=== PATIENT | male | born 1955 | race African-American/Black ===

== ENCOUNTER 2019-03-29 22:21 | Inpatient (IN) | payer MEDICARE ==
[~2019-03-29] VITALS: Ht 172.7 cm; Wt 102.5 kg
[2019-03-29 22:30] VITALS: BP 123/73
--- NOTE | 2019-03-29 22:30 | NUR ---
ED Nurse Note: pt brought in by ambulance 67 from home. per report, pt stated pt was altered and not acting like himself. pt is alert x3 at this time.
--- NOTE | 2019-03-29 22:39 | Emergency Room Report ---
History of Present Illness General Chief Complaint: Altered Level of Consciousness Source: Patient Present Illness [facility] Disclaimer: Please note that this report is being documented using DRAGON technology. This can lead to erroneous entry secondary to incorrect interpretation by the dictating instrument. HPI: 63-year-old male with a history of hypertension, hyperlipidemia, diabetes and hepatitis presents for evaluation of altered mental status. According to EMS, patient lives at home with his who called EMS when he was progressively more altered throughout the day. States normally he is ambulatory , conversant and alert and oriented x3. Notes increasing confusion forgetting to do things during the day and forgetting his name, disoriented to time and behaving bizarrely. No reported trauma. No reported drug or alcohol use. According to EMS the says that this is happened before when the patient had a "blood infection" several years ago. Fingerstick on route was in the 150s. PMH: Hypertension, diabetes, hyperlipidemia, hepatitis PSH: Unknown Allergies: Penicillins listed in chart Social Hx: No reported drug or alcohol use Allergies: Coded Allergies: PENICILLINS (Verified Allergy, Unknown, 03/29/19) Nursing Documentation-PMH Hx Hypertension: Yes Hx Diabetes: Yes Review of Systems All Other Systems: negative except mentioned in HPI Physical Exam Vital Signs Date Time Temp Pulse Resp B/P (MAP) Pulse Ox O2 Delivery O2 Flow Rate FiO2 03/29/19 22:25 98.4 86 14 143/80 (101) 95 Room Air General: Awake and alert, no acute distress, afebrile HEENT: NC/AT. EOMI. PERRLA. Visual raines are full. No nystagmus. Facial expressions are symmetrical. No facial droop. Cardiovascular: RRR. S1 and S2 normal. No murmur appreciated Resp: Normal work of breathing. No cough, wheezing or crackles appreciated Abdomen: Abdomen is soft, nondistended. Nontender Skin: Intact. No abrasions, laceration or rash over the exposed skin MSK: Normal tone and bulk. Moving all extremities. No obvious deformity. There is no drift in the upper or lower extremities bilaterally. Neuro: Awake and alert. Awake and oriented x3. Facial expression symmetrical. Mild dysarthria. Sensation to light touch is intact over the upper and lower extremities. The patient has intact speech with good repetition, comprehension. Responses are slow but coherent. No aphasia, no neglect. Medical Decision Making Diagnostic Impression: Primary Impression: Altered level of consciousness Additional Impressions: Febrile illness MORAIMA (acute kidney injury) Increased ammonia level Hyponatremia ER Course Is a 63-year-old male presenting for evaluation of altered mental status. For my evaluation he is alert and oriented x3 though somewhat sluggish to respond. Vital signs are within normal limits and the patient is afebrile. According to EMS he had a similar presentation where he had a "blood infection" at [facility] last month. We will start a broad metabolic and infectious work-up including a CT scan of the head and a chest x-ray. Patient will likely require admission Laboratory Tests Test 03/29/19 11:05 03/29/19 22:24 03/29/19 22:42 03/29/19 22:44 Arterial Blood pH 7.422 (7.350-7.450) Arterial Blood Partial Pressure CO2 28.8 mmHg (35.0-45.0) L Arterial Blood Partial Pressure O2 79.4 mmHg (75.0-100.0) Arterial Blood HCO3 18.3 mmol/L (22.0-26.0) L Arterial Blood Oxygen Saturation 95.2 % (95-100) Arterial Blood Base Excess -4.8 (-2-2) L [place] Test Positive Urine Opiates Screen Negative (NEGATIVE) Urine Barbiturates Screen Negative (NEGATIVE) Phencyclidine (PCP) Screen Negative (NEGATIVE) Urine Amphetamines Screen Negative (NEGATIVE) Urine Benzodiazepines Screen Negative (NEGATIVE) Urine Cocaine Screen Negative (NEGATIVE) Urine Marijuana (THC) Screen Negative (NEGATIVE) White Blood Count 6.4 K/UL (4.8-10.8) Red Blood Count 4.13 M/UL (4.70-6.10) L Hemoglobin 12.4 G/DL (14.2-18.0) L Hematocrit 36.2 % (42.0-52.0) L Mean Corpuscular Volume 88 FL (80-99) Mean Corpuscular Hemoglobin 30.0 PG (27.0-31.0) Mean Corpuscular Hemoglobin Concent 34.2 G/DL (32.0-36.0) Red Cell Distribution Width 11.2 % (11.6-14.8) L Platelet Count 83 K/UL (150-450) L Mean Platelet Volume 8.5 FL (6.5-10.1) Neutrophils (%) (Auto) % (45.0-75.0) Lymphocytes (%) (Auto) % (20.0-45.0) Monocytes (%) (Auto) % (1.0-10.0) Eosinophils (%) (Auto) % (0.0-3.0) Basophils (%) (Auto) % (0.0-2.0) Differential Total Cells Counted 100 Neutrophils % (Manual) 82 % (45-75) H Lymphocytes % (Manual) 12 % (20-45) L Monocytes % (Manual) 5 % (1-10) Eosinophils % (Manual) 0 % (0-3) Basophils % (Manual) 1 % (0-2) Band Neutrophils 0 % (0-8) Platelet Estimate Decreased L Platelet Morphology Normal Red Blood Cell Morphology Normal Sodium Level 132 MMOL/L (136-145) L Potassium Level 4.4 MMOL/L (3.5-5.1) Chloride Level 100 MMOL/L (98-107) Carbon Dioxide Level 19 MMOL/L (21-32) L Anion Gap 13 mmol/L (5-15) Blood Urea Nitrogen 54 mg/dL (7-18) H Creatinine 1.9 MG/DL (0.55-1.30) H Estimate Glomerular Filtration Rate 43.5 mL/min (>60) Glucose Level 222 MG/DL (74-106) H Lactic Acid Level 1.40 mmol/L (0.4-2.0) Calcium Level 9.2 MG/DL (8.5-10.1) Total Bilirubin 2.8 MG/DL (0.2-1.0) H Direct Bilirubin 1.8 MG/DL (0.0-0.3) H Aspartate Amino Transferase (AST) 87 U/L (15-37) H Alanine Aminotransferase (ALT) 69 U/L (12-78) Alkaline Phosphatase 198 U/L (46-116) H Total Creatine Kinase 65 U/L (26-308) Creatine Kinase MB < 0.5 NG/ML (0.0-3.6) Creatine Kinase MB Relative Index 0.7 Troponin I 0.000 ng/mL (0.000-0.056) Total Protein 8.3 G/DL (6.4-8.2) H Albumin 2.5 G/DL (3.4-5.0) L Globulin 5.8 g/dL Albumin/Globulin Ratio 0.4 (1.0-2.7) L Thyroid Stimulating Hormone (TSH) 0.790 uiU/mL (0.358-3.740) Salicylates Level < 0.2 ug/mL (2.8-20) L Acetaminophen Level < 2 MCG/ML (10-30) L Serum Alcohol < 3 mg/dL Acetone Level Negative (NEGATIVE) Urine Color Yellow Urine Appearance Clear Urine pH 5 (4.5-8.0) Urine Specific [place] 1.010 (1.005-1.035) Urine Protein 2+ (NEGATIVE) H Urine Glucose (UA) Negative (NEGATIVE) Urine Ketones Negative (NEGATIVE) Urine Blood 3+ (NEGATIVE) H Urine Nitrite Negative (NEGATIVE) Urine Bilirubin Negative (NEGATIVE) Urine Urobilinogen 4 MG/DL (0.0-1.0) H Urine Leukocyte Esterase Negative (NEGATIVE) Urine RBC 2-4 /HPF (0 - 0) H Urine WBC 0 /HPF (0 - 0) Urine Squamous Epithelial Cells None /LPF (NONE/OCC) Urine Bacteria Few /HPF (NONE) Test 03/29/19 23:00 Ammonia 68 umol/L (11-32) H EKG Diagnostic Results EKG Time: 22:37 Rate: normal Rhythm: NSR ST Segments: no acute changes Other Impression Sinus rhythm, normal axis, normal intervals, no ST segment changes. Rhythm Strip Diag. Results Rhythm Strip Time: 22:37 EP Interpretation: yes Rate: 90s Rhythm: NSR, no PVC's, no ectopy Chest X-Ray Diagnostic Results Chest X-Ray Diagnostic Results : Chest X-Ray Ordered: Yes # of Views/Limited/Complete: 1 View Indication: Other - Altered mental status EP Interpretation: Yes Interpretation: no consolidation, no effusion, no pneumothorax, no acute cardiopulmonary disease Impression: No acute disease Electronically Signed by: Electronically signed by Dr. Mark Treviño CT/MRI/US Diagnostic Results CT/MRI/US Diagnostic Results : Impression Preliminary Findings Only See Final Report For Complete Findings CT HEAD Without Contrast: No acute intracranial hemorrhage, extra-axial fluid collection, edema, mass effect, or ischemic infarct. No fracture. The paranasal sinuses and mastoid air cells are clear. Radiologist: Blaze Ibanez MD Reevaluation Time: 01:13 Last Vital Signs Date Time Temp Pulse Resp B/P (MAP) Pulse Ox O2 Delivery O2 Flow Rate FiO2 03/29/19 22:25 98.4 86 14 143/80 (101) 95 Room Air Status: improved Reevaluation Impression CT scan of the head, x-ray of the chest and EKG are within normal limits. Labs show no significant white count but it signs of acute kidney injury with an elevated creatinine, elevated pneumonia, normal lactate. The patient's is now present and states that he also takes methadone, hydrocodone and this may be a polypharmacy issue however the drug screen does not show any opiates on board. The patient arrived afebrile but is now again febrile. states that he had a temperature of 103 degrees taken orally at home at the time of his changes in mentation. She states that he was oriented the entire time but just slow to respond and somewhat lethargic. She states that he was able to answer all questions appropriately for EMS. adds that he was being treated for liver cancer with his last episode of chemotherapy 1 year ago. He is also treated for hepatitis C. it appears he has an acute kidney injury with an elevated creatinine elevated ammonia as well. Will order lactulose. According to discharge labs that are provided by the patient's his creatinine on discharge on 03/06 was 1.14. We will continue IV fluids and the patient will be admitted for further management of febrile illness, MORAIMA and elevated ammonia levels. His mentation is restored to baseline as he has been since arrival and he understands and agrees with this treatment plan. Disposition: ADMITTED INPATIENT Condition: Serious Mark Treviño MD Mar 29, 2019 22:39
--- NOTE | 2019-03-29 22:48 | NUR ---
pt left for CT
[2019-03-29 23:02] LABS: HEMATOCRIT 36.2 % (42.0-52.0); HEMOGLOBIN 12.4 G/DL (14.2-18.0); MEAN CORPUSCULAR VOLUME 88 FL (80-99); PLATELET COUNT 83 K/UL (150-450); RED BLOOD COUNT 4.13 M/UL (4.70-6.10); RED CELL DISTRIBUTION WIDTH 11.2 % (11.6-14.8); WHITE BLOOD COUNT 6.4 K/UL (4.8-10.8)
--- NOTE | 2019-03-29 23:12 | Diagnostic Imaging Report ---
Indications: Altered mental status Technique: Spiral acquisitions obtained through the brain. Angled axial and coronal 5 x 5 mm slices were reconstructed. Total dose length product 1323 mGycm. CTDI vol(s) 60 mGy. Dose reduction achieved using automated exposure control Comparison: None. Findings: No acute intracranial hemorrhage or edema. No mass effect or midline shift. Normal abbott-white differentiation. There is minimal age-related prominence of the ventricles and extra axial CSF spaces. The calvarium is intact. The mastoids are clear. Visualized sinuses are clear. The orbits are unremarkable Impression: Negative This agrees with the preliminary interpretation provided overnight by [facility] teleradiology service. The CT scanner at [facility] is accredited by the [employer] and the scans are performed using protocols designed to limit radiation exposure to as low as reasonably achievable to attain images of sufficient resolution adequate for diagnostic evaluation.
[2019-03-29] MEDS ORDERED: LOSARTAN POTAS100 MG ORAL (23:13)
[2019-03-29] MEDS ORDERED: PROPRANOLOL HCL40 MG ORAL (23:13)
[2019-03-29] MEDS ORDERED: LORATADINE10 M1 PO (23:13)
[2019-03-29] MEDS ORDERED: GABAPENTIN300 MG ORAL (23:13)
[2019-03-29] MEDS ORDERED: OMEPRAZOLE20 M2 ORAL (23:13)
[2019-03-29] MEDS ORDERED: METHADONE H5 MG/5 M1 PO (23:13)
[2019-03-29] MEDS ORDERED: LANTUS SOL100 UNIT/1 SUBQ (23:13)
[2019-03-29] MEDS ORDERED: ROXICODONE5 MG ORAL (23:13)
[2019-03-29] MEDS ORDERED: HYDROCHLOROTHIA25 MG ORAL (23:13)
[2019-03-29] MEDS ORDERED: NOVOLOG100 UNIT/4 SQ (23:13)
[2019-03-29] MEDS ORDERED: PROSCAR5 MG ORAL (23:13)
[2019-03-29 23:30] LABS: ANION GAP 13 mmol/L (5-15); BLOOD UREA NITROGEN 54 mg/dL (7-18); CALCIUM 9.2 MG/DL (8.5-10.1); CARBON DIOXIDE 19 MMOL/L (21-32); CHLORIDE 100 MMOL/L (98-107); CREATININE 1.9 MG/DL (0.55-1.30); POTASSIUM 4.4 MMOL/L (3.5-5.1); SODIUM 132 MMOL/L (136-145)
[2019-03-29 23:40] LABS: ALANINE AMINOTRANSFERASE 69 U/L (12-78); ALBUMIN 2.5 G/DL (3.4-5.0); ALBUMIN/GLOBULIN RATIO 0.4 (1.0-2.7); ALKALINE PHOSPHATASE 198 U/L (46-116); ASPARTATE AMINO TRANSFERASE 87 U/L (15-37); BILIRUBIN,TOTAL 2.8 MG/DL (0.2-1.0); CKMB < 0.5 NG/ML (0.0-3.6); CREATINE KINASE 65 U/L (26-308)
[2019-03-29 23:43] LABS: BILIRUBIN,DIRECT 1.8 MG/DL (0.0-0.3)
--- NOTE | 2019-03-29 23:46 | NUR ---
ED Nurse Note: pt unable to provide urine sample at this time. pt stated he will notify staff when he is ready to urinate. ERMD aware.
--- NOTE | 2019-03-30 00:26 | NUR ---
ED Nurse Note: urine sample sent down to lab
[2019-03-30 00:31] LABS: APPEARANCE,URINE CLEAR; BILIRUBIN, URINE NEGATIVE (NEGATIVE); GLUCOSE, URINE (UA) NEGATIVE (NEGATIVE); KETONES,URINE NEGATIVE (NEGATIVE); LEUKOCYTE ESTERASE ,URINE NEGATIVE (NEGATIVE); NITRITE,URINE NEGATIVE (NEGATIVE); PH,URINE 5 (4.5-8.0); PROTEIN,URINE 2+ (NEGATIVE); UROBILINOGEN,URINE 4 MG/DL (0.0-1.0)
[2019-03-30 00:40] LABS: COLOR,URINE YELLOW
[2019-03-30 00:50] VITALS: BP 108/70
--- NOTE | 2019-03-30 00:52 | NUR ---
ED Nurse Note: pt in bed resting awake, by bedside. VSS
[2019-03-30] MEDS ORDERED: Acetaminophen 500mg (ES) tab ORAL ONE ×2 (01:15→01:16)
--- NOTE | 2019-03-30 02:41 | NUR ---
ED Nurse Note: pt brought up to MS floor accompanied by rv technician via gurchasity in stable condition. IV site to left FA 20g remain intact. Belonging list signed. pt is alert x4. Report given to FIDEL Banks .
[2019-03-30] MEDS ORDERED: Lactulose 20gm/30ml UDC ORAL ONE (02:45)
--- NOTE | 2019-03-30 03:17 | NUR ---
NURSE NOTES: Admitted 53 year old male Pt from ER under Dr Chavarria. Report received from [facility] ER. pt is alert,oriented and verbal. pt is ambulatory. Breathing on room air. Patient's at bed side. No acute distress noted. IV site on left arm is patent. Head ct was done in the ER. skin intact. Belonging list verified and signed by PT's . Pt's took his shirt to home(it is in the belonging list)Vitals stable. Temperature is 98.7. Dr Chavarria will be called for admitting orders. Pt oriented to the room.Bed in low and locked position. Call light within reach. Pt will be monitored.
[2019-03-30] MEDS ORDERED: Lactulose 20gm/30ml UDC ONE (03:27)
[2019-03-30 03:48] VITALS: BP 126/74
[2019-03-30] MEDS ORDERED: oxyCODONE 5mg IR tab ORAL PRN (06:30)
--- NOTE | 2019-03-30 07:10 | NUR ---
HAND-OFF: Report given to Buckner RN.
--- NOTE | 2019-03-30 07:15 | NUR ---
NURSE NOTES: Received patient awake, alert. IV line intact, no s/s of infiltration. No SOB or cardiac distress. Will continue plan of care.
[2019-03-30] MEDS: NovoLOG Insulin Flexpen SUBQ SCH ×4 (07:28→22:00)
[2019-03-30 08:00] VITALS: BP 93/57
[2019-03-30] MEDS ORDERED: Vancomycin 1.5gm/NS Premix IVPB ONE (08:00)
[2019-03-30] MEDS ORDERED: Heparin 5000 units/ml inj SUBQ SCH (09:00)
[2019-03-30] MEDS ORDERED: Losartan 50mg tab ORAL SCH (09:00)
[2019-03-30] MEDS: Propranolol 40mg tab ORAL SCH ×3 (09:00→21:58)
[2019-03-30] MEDS: Flagyl 500mg/NS 100ml Pre-Mix IV SCH ×2 (09:01→17:43)
--- NOTE | 2019-03-30 11:17 | NUR ---
NURSE NOTES: Unable to insert a second IV line on right wrist to start Vancomycin. Two attempts made. Referred to charge nurse.
[2019-03-30 12:00] VITALS: BP 120/71
[2019-03-30] MEDS ORDERED: Piperacillin/Tazobactam 3.375 GM in NS 110 ML IVPB SCH (12:00)
--- NOTE | 2019-03-30 12:00 | NUR ---
NURSE NOTES: IV line reinserted by charge nurse to right hand, infusing well.
[2019-03-30] MEDS: Aztreonam 1gm/D5W 55ml IVPB SCH ×6 (12:56→21:59)
--- NOTE | 2019-03-30 13:09 | NUR ---
CASE MANAGEMENT: INITIAL REVIEW 63 YR OLD FEMALE BIBA FROM HOME CC: ALTERED LEVEL OF CONSCIOUSNESS SI: ALTERED LEVEL CONSCIOUS; INCREASE AMMONIA; HYPONATREMIA; ACUTE KIDNEY INJURY/ FEVER 98.5 86 14 143/80 95% RA NA 132; NH3 68; RBC 4.13; H/H 12.4/36.2; PLT 83; CO2 19; BUN 54; CREAT 1.9; BG 222 TBIL 2.8; DBIL 1.8; ALK PHOS 198; AST 87 ABG: PCO2 28.8; HCO3 18.3 IS: IVF NS BOLUS X2 TYLENOL PO X1 CT HEAD : 4E MED/SURG DCP: RETURN HOME WHEN MEDICALLY CLEARED PLAN: US ABD CASE MANAGEMENT: REVIEW 03/30/19 SI: ALTERED LEVEL CONSCIOUS; INCREASE AMMONIA; HYPONATREMIA; ACUTE KIDNEY INJURY/ FEVER 98.5 86 14 143/80 95% RA NA 132; NH3 68; RBC 4.13; H/H 12.4/36.2; PLT 83; CO2 19; BUN 54; CREAT 1.9; BG 222 TBIL 2.8; DBIL 1.8; ALK PHOS 198; AST 87 ABG: PCO2 28.8; HCO3 18.3 IS: IV VANCOMYCIN X1 IV KCL @150ML/HR LACTULOSE PO TID PROTONIX PO QD PROSCAR PO QD NEURONTIN PO Q8HR COZAAR PO QD INDERAL PO Q8HR IV METRONIDAZOLE @100ML/HR NOVOLOG SQ AC&HS TYLENOL PO Q4/PRN : 4E MED/SURG DCP: RETURN HOME WHEN MEDICALLY CLEARED PLAN: US ABD
[2019-03-30] MEDS: NS w/KCl 20mEq 1000ml 1,000 ML IV SCH ×2 (13:46→21:58)
[2019-03-30] MEDS: Lactulose 20gm/30ml UDC ORAL SCH ×2 (13:46→17:09)
--- NOTE | 2019-03-30 14:52 | Diagnostic Imaging Report ---
Indication: Chest pain Technique: One view of the chest Comparison: none Findings: Lungs and pleural spaces are clear. Heart size is normal. Impression: No acute process
--- NOTE | 2019-03-30 15:51 | Diagnostic Imaging Report ---
Indication: Abdominal distention, suspected ascites, anticipated paracentesis Technique: Grayscale images of the peritoneal space in all 4 quadrants Comparison: none Findings: No free intraperitoneal fluid is demonstrated Impression: Negative
[2019-03-30 16:00] VITALS: BP 126/79
--- NOTE | 2019-03-30 16:00 | NUR ---
NURSE NOTES: IV line on right hand dislodged. Reinserted to same hand using g24, patent.
--- NOTE | 2019-03-30 16:31 | Consultation ---
DATE OF CONSULTATION: 03/30/2019 CONSULTING PHYSICIAN: Bruno Bray M.D. REFERRING PHYSICIAN: Amarjit Chavarria M.D. CHIEF COMPLAINT AND REASON FOR CONSULTATION: Elevated BUN and creatinine, sepsis. HISTORY OF PRESENT ILLNESS: The patient is a 63-year-old male with a history of hepatitis C treated in the past, liver cancer treated with TACE procedure, hypertension, diabetes. He was hospitalized at [facility] in [place] recently with sepsis of unknown etiology and apparently was discharged approximately 03/06/2019. The patient had lethargy, altered mental status, confusion and was brought to the emergency room last night, was also associated with fever. No dysuria, hematuria, or increasing cough. ALLERGIES: Penicillin as a child. MEDICATIONS: Amlodipine 10 mg daily, finasteride 5 mg daily, gabapentin 600 mg t.i.d., hydrochlorothiazide 25 mg daily, losartan 50 mg b.i.d., methadone 10 mg daily, tamsulosin 0.4 mg daily. HABITS: He is a former smoker. Alcohol drinker. He is on methadone for arthritis. Does not have a history of heroin abuse. SURGERIES: Right knee osteochondroma, gallbladder, left ankle surgery. SYSTEM REVIEW: HEAD, EYES, EARS, NOSE, AND THROAT: Vision and hearing is good. ENDOCRINE: History of diabetes for several years. No recent hypoglycemia or hyperglycemia. No thyroid disease. PULMONARY: No chronic cough or asthma. CARDIAC: No angina or NC. History of hypertension. GASTROINTESTINAL: No GI bleeding or ulcers. GENITOURINARY: No dysuria, hematuria, or kidney stones. He is not aware of renal failure, but apparently had MORAIMA on his prior hospitalization. NEUROLOGIC: He has had hepatic encephalopathy several years ago. He took lactulose, but this resolved. No strokes or seizures. MUSCULOSKELETAL: History of severe arthritis of the knees [id number] for which he takes methadone. PHYSICAL EXAMINATION: GENERAL: The patient is arousable, somewhat slow to speak, in no acute distress. VITAL SIGNS: Temperature 101.7, pulse 99, respirations 20, blood pressure 93/57. HEAD, EYES, EARS, NOSE, AND THROAT: Sclerae are nonicteric. Ocular motions intact in all directions. Oral mucosa slightly dry. NECK: No adenopathy or thyroid enlargement. LUNGS: Clear. HEART: Regular rhythm. I hear no murmur. ABDOMEN: Shows some fullness. I am unable to clearly feel liver or spleen. EXTREMITIES: No edema, cyanosis, or clubbing. No inflamed joints or cellulitis. NEUROLOGIC: He is alert, responsive, somewhat slower speech. Ocular motions intact in all directions. Smile symmetric. Tongue is midline. He moves all extremities. He has very slight asterixis. PERTINENT LABORATORY DATA: Show sodium 132, potassium 4.4, BUN 54, creatinine 1.9, glucose 222. Lactic acid 1.4. Bilirubin 2.8, alkaline phosphatase 198, AST 87. CK 65. Albumin 2.5. Toxicology, urine drug screen is negative. IMPRESSION: 1. Acute kidney injury. Note recent labs from 03/06/2019 had a BUN of 18 and a creatinine of 1.14. Acute kidney injury could be due to sepsis, dehydration from diuretics, possible hepatorenal syndrome although I think this is less likely. 2. Sepsis, etiology unclear in a patient with liver disease. Also get concerned about spontaneous bacterial peritonitis versus other causes. Urine shows 0 white cells, so it is unlikely to be a UTI. 3. Proteinuria 2+. This should be repeated, but it clearly indicates he has some diabetic nephropathy or other etiology. 4. History of liver cancer. 5. History of hep C in the past and concern for cirrhosis. PLAN: The patient has been cultured. Put on broad-spectrum antibiotics. We will get appropriate imaging. Hydrate the patient. Give him lactulose. Check ammonia and make further recommendations when the above studies are repeated and available. Bruno Bray M.D. DR: LESIA JOB#: [id number] CC:
--- NOTE | 2019-03-30 17:03 | Diagnostic Imaging Report ---
Indication: Abdominal distention, abnormal liver function tests, abnormal renal function tests Technique: Garcia-scale and duplex images of the upper abdomen were obtained Comparison: none Findings: Gallbladder has been removed Common bile duct measures 6 mm in diameter. No intrahepatic biliary ductal dilatation. Liver demonstrates normal echogenicity, no focal abnormality. There is equivocally mild hepatic surface nodularity. Portal vein and hepatic veins are patent. Pancreas is unremarkable. The spleen is enlarged, measuring 16.8 cm long axis dimension Left kidney measures 11.3 cm in length. Right kidney measures 11.3 cm length. Both kidneys demonstrate normal echogenicity. There is no hydronephrosis. No focal abnormality . Abdominal aorta is partially obscured by bowel gas, visualized portions are non-aneurysmal . Impression: Status post cholecystectomy Negative for dilated bile ducts Splenomegaly Possible hepatic surface nodularity, could indicate cirrhotic change Note incomplete visualization of the abdominal aorta
--- NOTE | 2019-03-30 19:15 | NUR ---
NURSE NOTES: Patient is in bed awake, alert and verbal. Breathing on room air. IV sites on L arm is patent and intact. Bed in low and locked position. Call light within reach.Pt will be monitored.
[2019-03-30 20:00] VITALS: BP 131/78
--- NOTE | 2019-03-30 21:14 | NUR ---
NURSE NOTES: Patient is in bed awake, alert and verbal. Breathing on room air.Pt is having frequent BMs; on lactulose. Blood sugar 270.Pt is on IV fluid. Abdomen is slightly distended. Abdominal Us done during last shift, paracentesis was cancelled. Bed in low and locked position. Call light within reach.Pt was instructed to call for assistance before getting out of bed. Pt will be monitored. Trainee, Raisa SomersRN will be assisting in the care of this patient.
--- NOTE | 2019-03-30 22:00 | NUR ---
NURSE NOTES: Called Dr Chavarria for methadone order per pt's request but no new orders.
--- NOTE | 2019-03-30 23:30 | History and Physical Report ---
DATE OF ADMISSION: 03/30/2019 REASON FOR ADMISSION: Elevated renal function. HISTORY: This is a 63-year-old male with history of hypertension and diabetes. The patient was recently admitted to [facility] for possible sepsis and was discharged. The patient's care was discussed and reviewed. The patient is currently without significant distress and alert and has no focal concerns. Renal was called to evaluate further for possible acute kidney injury, and the patient is also being admitted for possible sepsis and started on antibiotics. PAST MEDICAL HISTORY: As above. Also, he has a history of right knee osteochondroma, possible cholecystectomy, and left ankle surgery. MEDICATIONS: Reviewed and reconciled. SOCIAL HISTORY: The patient is a former smoker. Former drinker. He does have a history of methadone use and history of heroin abuse. PHYSICAL EXAMINATION: GENERAL: A well-developed male, overall comfortable. VITAL SIGNS: Reviewed. T-max 101.7 and blood pressure 93/57. HEENT: Negative. NECK: Supple. LUNGS: Fairly clear and symmetric. CARDIAC: S1, S2. Regular rate and rhythm. ABDOMEN: Overall soft and nontender. EXTREMITIES: No cyanosis, clubbing, or edema. NEUROLOGIC: Grossly nonfocal. LABORATORY DATA: All reviewed. IMPRESSION: 1. Acute kidney injury, acute renal failure. 2. Possible sepsis. 3. Hyperglycemia. 4. Diabetes. 5. Hypertension. 6. Hyperbilirubinemia. 7. Elevated liver enzymes. 8. Proteinuria. 9. History of hepatitis C. RECOMMENDATIONS: 1. Supportive care. 2. IV antibiotics. 3. Follow cultures. 4. IV hydration. 5. Monitor care and discuss for further changes. 6. Follow up laboratory data and review, and we will discuss with other consultants as to further care and management. at present, appears nontoxic but will cover empirically and monitor Amarjit Chavarria M.D. DR: JEFF JOB#: [id number] CC: JOSE LUIS
[2019-03-31] VITALS (28 sets, daily range): BP systolic 56–210; BP diastolic 41–124
[2019-03-31] MEDS: Flagyl 500mg/NS 100ml Pre-Mix IV SCH (00:49)
--- NOTE | 2019-03-31 01:14 | NUR ---
NURSE NOTES: Pt is in bed asleep. Evening meds given as ordered. Assisted as needed. Blood sugar checked and insulin administered as ordered. avitals are stable. Temperature 97.8. Bed in low and locked position. call light within reach. will continue to monitor the pt.
[2019-03-31] MEDS: NS w/KCl 20mEq 1000ml 1,000 ML IV SCH (02:20)
--- NOTE | 2019-03-31 03:10 | NUR ---
NURSE NOTES: Pt is standing by the bedside with severe shortness of breath, breathing rapidly and wheezing. Pt just returned from using the restroom. Vitals taken. Temp fluctuating from 101.5 to 102.6 axillary, HR 108 -118, BP 132/71, RR 22-26, O2 sat (86-94). Pt is assessed and placed on oxygen via nasal canula. RN remains with patient to monitor closely . Pt is placed continuos pulse oximetry. Vitals are taken in close intervals.
--- NOTE | 2019-03-31 03:45 | NUR ---
NURSE NOTES: Dr. Chavarria is called and message left regarding pt's condition. Awaiting call back.
--- NOTE | 2019-03-31 04:07 | NUR ---
NURSE NOTES: Pt is still restless, and wheezing. HR 118, Temp 101.5. Tylenol 650mg po given as ordered PRN for fever. Cooling measure provided. Blood sugar 145. Pt will continue to be monitored.
--- NOTE | 2019-03-31 04:10 | NUR ---
NURSE NOTES: Respiratory therapist called to asses patient. Sridhar PT is by bedside assessing patient.
--- NOTE | 2019-03-31 04:15 | NUR ---
NURSE NOTES: Dr. Chavarria is called again and message left to call back. Awaiting call back.
--- NOTE | 2019-03-31 04:30 | NUR ---
NURSE NOTES: Charge nurse FIDEL Nix and Nurse supervisor cell room Pat Zarate called to inform about patient's condition.
--- NOTE | 2019-03-31 04:34 | NUR ---
NURSE NOTES: Rapid Response Team (STONEWORK TRACER) is called as the pt's condition is not improving. Pt is restless, wheezing, and trying to get out of bed. Heart rate fluctuating from 108 to 118. O2 sat on 4L n/c fluctuating from 84 -94%. Temperature now is 102.6. STAT ABG and STAT CXR done. DUO Neb breathing treatment given by RT. Pt placed on portable monitor- sinus tachy ([id number]). Dr. Chavarria is called again.
--- NOTE | 2019-03-31 05:00 | NUR ---
NURSE NOTES: Dr. Chavarria called and back and ordered to transfer patient to [facility]. Charge nurse and Nursing cell feed department supervisor notified to arrange bed.
--- NOTE | 2019-03-31 05:15 | NUR ---
HAND-OFF: Report given to FIDEL Rosales [facility]. Pt is transferred to [facility] room 245 in stable condition.Pt is awake and verbal.Pt appears more calm.Pt was placed on monitor. All of patient's belongings transferred with patient, belonging sheet was verified during transfer. Pt's Simran was called at [phone] and message left regarding transfer to [facility]. Informed the receiving nurse that patient is at risk for fall as patient get out of bed.
--- NOTE | 2019-03-31 05:15 | NUR ---
NURSE NOTES: Received report from Raisa RN, and Shay RN, pt. transferred from [facility]E- pt. is A/O x's3- able to make needs known, pt. appears to be stable- display decorator placed on patient, no signs or symptoms of acute cardiac or respiratory distress noted, pt. teaching done and pt. oriented to room, pt. aware to ask for assist when using bed escobedo, bed alarm on, call light within easy reach, bed in lowest position and side rails up x's3- and safety brakes engaged, bed bath given and comfort measures provided, full body assessment done, skin intact, pt. appears to be sating well on 2L NC at 94%- no distress noted, RFA 20G running NS +20KCL at 150cc/hr- IV intact and patent, LFA 24G IV intact and patent, safety measures continued, will continue with plan of care.
--- NOTE | 2019-03-31 05:30 | NUR ---
NURSE NOTES: pts temp is 100.5- cooling measures applied as pt. was given Tylenol at 0400 in 4E - will continue to monitor pt. and with plan of care.
--- NOTE | 2019-03-31 05:35 | Diagnostic Imaging Report ---
Indication: Shortness of breath Technique: XRAY Chest 1v Comparison: 03/29/2019 Findings: Heart size and mediastinal contours stable. Since the prior exam there is marked worsening aeration with development of bilateral interstitial and predominantly right-sided airspace disease. Possible layering pleural effusion also noted on the right. No radiographically appreciable pneumothorax. Osseous structures are stable. Impression: Interval significant worsening of aeration with development of bilateral interstitial and predominantly right-sided airspace opacities which may be related to pulmonary edema. Superimposed pneumonia/infection can also be considered. Clinical correlation and follow-up recommended.
[2019-03-31] MEDS ORDERED: NS w/KCl 20mEq 1000ml 1,000 ML IV SCH ×3 (06:00→20:24)
[2019-03-31] MEDS: Propranolol 40mg tab ORAL SCH ×2 (06:00→13:11)
[2019-03-31] MEDS ORDERED: Aztreonam Inj 1 GM in D5W 55 ML IVPB SCH (06:00)
[2019-03-31] MEDS: NovoLOG Insulin Flexpen SUBQ SCH ×4 (06:23→22:54)
[2019-03-31] MEDS ORDERED: oxyCODONE 5mg IR tab ORAL PRN (06:30)
[2019-03-31 06:33] LABS: HEMATOCRIT 38.6 % (42.0-52.0); HEMOGLOBIN 12.9 G/DL (14.2-18.0); MEAN CORPUSCULAR VOLUME 88 FL (80-99); PLATELET COUNT 76 K/UL (150-450); RED BLOOD COUNT 4.36 M/UL (4.70-6.10); RED CELL DISTRIBUTION WIDTH 12.3 % (11.6-14.8); WHITE BLOOD COUNT 4.3 K/UL (4.8-10.8)
[2019-03-31 06:40] LABS: ANION GAP 16 mmol/L (5-15); BLOOD UREA NITROGEN 44 mg/dL (7-18); CALCIUM 9.4 MG/DL (8.5-10.1); CARBON DIOXIDE 16 MMOL/L (21-32); CHLORIDE 110 MMOL/L (98-107); CREATININE 2.4 MG/DL (0.55-1.30); POTASSIUM 4.2 MMOL/L (3.5-5.1); SODIUM 142 MMOL/L (136-145)
[2019-03-31 06:51] LABS: AMMONIA 13 umol/L (11-32)
[2019-03-31] MEDS: Albuterol/Ipratropium 3ml neb HHN SCH ×5 (06:55→23:26)
[2019-03-31] MEDS ORDERED: Albuterol/Ipratropium 3ml neb HHN SCH (07:00)
--- NOTE | 2019-03-31 07:01 | NUR ---
NURSE NOTES: Left message DR. Chavarria for any additional orders for pt. transferred from 4E- awaiting for call back from doctor.
--- NOTE | 2019-03-31 07:05 | NUR ---
NURSE NOTES: pt. calling- gave report pt. is in room sating well - per she will come visit in a couple of hours- will notify .
--- NOTE | 2019-03-31 07:17 | NUR ---
HAND-OFF: Report given to Verona PARRA, pt. remains stable and no signs of distress noted- nurse aware to f/u with DR. Chavarria for abnormal labs and ABG labs and if any additional orders.
--- NOTE | 2019-03-31 07:47 | NUR ---
NURSE NOTES: Report received from FIDEL Alvarez
--- NOTE | 2019-03-31 08:13 | Pulmonology Progress Note ---
Assessment/Plan Assessment/Plan Pulmonary Progress Note HPI: Patient is a 63-year-old male with past history of hypertension and diabetes. The patient was previously admitted to [facility] for possible sepsis The patient is currently without significant distress. Renal following the patients acute kidney injury and acidosis, and the patient is also being being treated for Pneumonia/sepsis on IV antibiotics. PAST MEDICAL HISTORY: As above. Also, he has a history of right knee osteochondroma, possible cholecystectomy, and left ankle surgery. No new complaints PHYSICAL EXAMINATION: GENERAL: A well-developed male, overall comfortable. VITAL SIGNS NOTED HEENT: Negative. NECK: Supple. LUNGS: Fairly clear and symmetric. CARDIAC: S1, S2. Regular rate and rhythm. ABDOMEN: Overall soft and nontender. EXTREMITIES: No cyanosis, clubbing, or edema. NEUROLOGIC: Grossly nonfocal. LABORATORY DATA: All reviewed. Impression: 1. Acute kidney injury, acute renal failure. 2. Pneumonia, possible sepsis. 3. Hyperglycemia. 4. Diabetes. 5. Hypertension. 6. Hyperbilirubinemia. 7. Elevated liver enzymes. 8. Proteinuria. 9. History of hepatitis C. Plan: 1. Supportive care. 2. IV antibiotics. 3. Follow cultures. 4. IV hydration. 5. Monitor care and discuss for further changes. 6. Follow up laboratory data and review Subjective ROS Limited/Unobtainable: No Allergies: Coded Allergies: PENICILLINS (Verified Allergy, Unknown, 03/29/19) Objective Last 24 Hour Vital Signs Date Time Temp Pulse Resp B/P (MAP) Pulse Ox O2 Delivery O2 Flow Rate FiO2 03/31/19 07:05 102 26 98 Nasal Cannula 2.0 28 101 28 95 03/31/19 06:55 95 Nasal Cannula 2.0 28 03/31/19 06:00 98 101/68 03/31/19 06:00 Nasal Cannula 2.0 03/31/19 05:56 2.0 03/31/19 05:20 108 03/31/19 05:15 100.5 107 26 101/68 (79) 94 03/31/19 04:37 102.6 03/31/19 04:05 117 32 100 Nasal Cannula 2.0 28 108 31 98 03/31/19 04:00 101.5 108 22 132/72 (92) 94 03/31/19 00:00 97.8 84 18 117/70 (86) 100 03/30/19 21:58 72 131/78 03/30/19 21:00 Room Air 03/30/19 20:00 97.4 72 18 131/78 (95) 100 03/30/19 17:05 80 126/79 03/30/19 16:00 97.7 80 20 126/79 (95) 100 03/30/19 12:00 90.0 99 20 120/71 (87) 98 03/30/19 09:00 Room Air 03/30/19 09:00 99 93/57 03/30/19 09:00 93/57 Intake and Output 03/30/19 03/31/19 19:00 07:00 Intake Total 2025 ml Output Total 600 ml 0 ml Balance 1425 ml 0 ml Intake Oral 1020 ml IV Total 1005 ml Output Urine Total 600 ml 0 ml # Voids 2 1 # Bowel Movements 1 1 Microbiology Date/Time Source Procedure Growth Status 03/29/19 22:42 Blood Blood Culture - Preliminary Gram Negative Bacillus 1 Resulted 03/29/19 22:35 Blood Blood Culture - Preliminary Gram Negative Bacillus 1 Resulted Laboratory Tests 03/30/19 08:35: Hemoglobin A1c 7.4H 03/31/19 04:38: Arterial Blood pH 7.410, Arterial Blood Partial Pressure CO2 17.6*L, Arterial Blood Partial Pressure O2 73.7L, Arterial Blood HCO3 10.9*L, Arterial Blood Oxygen Saturation 94.4L, Arterial Blood Base Excess -11.1*L, Fransisco Test Positive 03/31/19 05:55: White Blood Count 4.3L, Red Blood Count 4.36L, Hemoglobin 12.9L, Hematocrit 38.6L, Mean Corpuscular Volume 88, Mean Corpuscular Hemoglobin 29.5, Mean Corpuscular Hemoglobin Concent 33.3, Red Cell Distribution Width 12.3, Platelet Count 76L, Mean Platelet Volume 8.8, Neutrophils (%) (Auto) , Lymphocytes (%) ( Auto) , Monocytes (%) (Auto) , Eosinophils (%) (Auto) , Basophils (%) (Auto) , Neutrophils % (Manual) [Pending], Lymphocytes % (Manual) [Pending], Platelet Estimate [Pending], Platelet Morphology [Pending], Sodium Level 142, Potassium Level 4.2, Chloride Level 110H, Carbon Dioxide Level 16L, Anion Gap 16H, Blood Urea Nitrogen 44H, Creatinine 2.4H, Estimat Glomerular Filtration Rate 33.2, Glucose Level 153H, Calcium Level 9.4, Ammonia 13, Random Vancomycin Level 9.9 Current Medications Medications (Trade) Dose Ordered Sig/Lianna Route PRN Reason Start Time Stop Time Status Last Admin Dose Admin Acetaminophen (Tylenol) 650 mg Q4H PRN ORAL Mild Pain/Temp > 100.5 03/31/19 06:15 04/29/19 06:14 Al Hydroxide/Mg Hydroxide (Mylanta) 30 ml Q4H PRN ORAL Abdominal cramps 03/31/19 06:15 04/29/19 06:14 Albuterol/ Ipratropium (Albuterol/ Ipratropium) 3 ml Q4HRT HHN 03/31/19 07:00 04/05/19 06:59 03/31/19 06:55 Aztreonam 1 gm/ Dextrose 55 ml @ 110 mls/hr EVERY 8 HOURS IVPB 03/31/19 06:00 04/06/19 07:59 03/31/19 06:21 Dextrose (Dextrose 50%) 25 ml Q30M PRN IV Hypoglycemia 03/31/19 05:30 04/29/19 06:29 Dextrose (Dextrose 50%) 50 ml Q30M PRN IV Hypoglycemia 03/31/19 05:30 04/29/19 06:29 Finasteride (Proscar) 5 mg DAILY ORAL 03/31/19 09:00 04/29/19 08:59 Gabapentin (Neurontin) 300 mg Q8HR ORAL 03/31/19 06:00 04/29/19 08:59 03/31/19 06:20 Insulin Aspart (NovoLOG) BEFORE MEALS AND HS SUBQ 03/31/19 06:30 04/29/19 07:29 03/31/19 06:23 Lactulose (Cephulac) 20 gm THREE TIMES A DAY ORAL 03/31/19 09:00 04/29/19 12:59 Loratadine (Claritin 10mg) 10 mg DAILY ORAL 03/31/19 09:00 04/29/19 08:59 Losartan Potassium (Cozaar) 100 mg DAILY ORAL 03/31/19 09:00 04/29/19 08:59 Metronidazole 100 ml @ 100 mls/hr Q8HR@0100,0900,1700 IV 03/31/19 09:00 04/06/19 08:59 Oxycodone HCl (Roxicodone) 5 mg Q4H PRN ORAL PAIN 4-10 03/31/19 06:30 04/06/19 06:29 Pantoprazole (Protonix) 40 mg DAILY ORAL 03/31/19 09:00 04/29/19 08:59 Potassium Chloride/Sodium Chloride 1,000 ml @ 150 mls/hr Q6H40M IV 03/31/19 06:00 04/29/19 05:59 03/31/19 06:22 Propranolol HCl (Inderal) 40 mg Q8HR ORAL 03/31/19 06:00 04/29/19 08:59 Vancomycin HCl (Vanco rx to dose) 1 ea DAILY PRN MISC Per rx protocol 03/31/19 09:00 04/29/19 06:14 Vancomycin HCl 1 gm/Dextrose 275 ml @ 183.708 mls/hr ONCE ONCE IVPB 03/31/19 10:00 03/31/19 11:29 Jah Valero MD Mar 31, 2019 08:13
--- NOTE | 2019-03-31 08:45 | NUR ---
NURSE NOTES: Pt awake when received but with episode of fatigue. Noted with low Blood pressure 77/50, bilateral lower extremities elevated, fluid intake given via mouth, also noted with low grade fever 99.3F, cooling measured applied. Pt also c/o mild knee pain and tylenol given. Will follow up with primary for abnormal result.No s/s acute distress , on nasal cannula at 2lpm and saturate at 99% at this time. Abdomen softr and non distended. Call light within easy reach.Bed in low position, 3/4 siderails up for positioning and safety.Call light within easy reach. at bedside and update on pt condition.Will continue close monitoring
[2019-03-31] MEDS ORDERED: Losartan 50mg tab ORAL SCH (09:00)
--- NOTE | 2019-03-31 09:00 | NUR ---
NURSE NOTES: BP this time 81/52, Criss morillo.Will continue to monitor
[2019-03-31] MEDS: Lactulose 20gm/30ml UDC ORAL SCH ×3 (09:18→17:06)
--- NOTE | 2019-03-31 09:48 | NUR ---
NURSE NOTES: Seen by Dr Walters, made aware blood pressure and new order placed for IVF rate change to 75cc/hr and Cozaar discontinue. Will review others new orders.Pt kept on close monitoring. at bedside and update given
--- NOTE | 2019-03-31 09:56 | Nephrology Progress Note ---
Assessment/Plan Assessment/Plan: A/P 1. MORAIMA. Multifact ATN - hypotension/sepsis/vol depletion - DC ARB - hold BP meds as patient hypotensive and monitor vanc levels carefully 2. Sepsis, etiology unclear in a patient with liver disease. Mgmt per PCP/ID 3. Proteinuria 2+. This should be repeated, but it clearly indicates he has some diabetic nephropathy or other etiology. 4. History of liver cancer. 5. History of hep C in the past and concern for cirrhosis. Subjective Date patient seen: Mar 31, 2019 Time patient seen: 09:54 ROS Limited/Unobtainable: No Allergies: Coded Allergies: PENICILLINS (Verified Allergy, Unknown, 03/29/19) Subjective Patient awake on no distress Objective Last 24 Hour Vital Signs Date Time Temp Pulse Resp B/P (MAP) Pulse Ox O2 Delivery O2 Flow Rate FiO2 03/31/19 09:00 87/50 03/31/19 07:05 102 26 98 Nasal Cannula 2.0 28 101 28 95 03/31/19 06:55 95 Nasal Cannula 2.0 28 03/31/19 06:00 98 101/68 03/31/19 06:00 Nasal Cannula 2.0 03/31/19 05:56 2.0 03/31/19 05:20 108 03/31/19 05:15 100.5 107 26 101/68 (79) 94 03/31/19 04:37 102.6 03/31/19 04:05 117 32 100 Nasal Cannula 2.0 28 108 31 98 03/31/19 04:00 101.5 108 22 132/72 (92) 94 03/31/19 00:00 97.8 84 18 117/70 (86) 100 03/30/19 21:58 72 131/78 03/30/19 21:00 Room Air 03/30/19 20:00 97.4 72 18 131/78 (95) 100 03/30/19 17:05 80 126/79 03/30/19 16:00 97.7 80 20 126/79 (95) 100 03/30/19 12:00 90.0 99 20 120/71 (87) 98 Intake and Output 03/30/19 03/31/19 19:00 07:00 Intake Total 2025 ml Output Total 600 ml 0 ml Balance 1425 ml 0 ml Intake Oral 1020 ml IV Total 1005 ml Output Urine Total 600 ml 0 ml # Voids 2 1 # Bowel Movements 1 1 Laboratory Tests 03/31/19 04:38: Arterial Blood pH 7.410, Arterial Blood Partial Pressure CO2 17.6*L, Arterial Blood Partial Pressure O2 73.7L, Arterial Blood HCO3 10.9*L, Arterial Blood Oxygen Saturation 94.4L, Arterial Blood Base Excess -11.1*L, Fransisco Test Positive 03/31/19 05:55: White Blood Count 4.3L, Red Blood Count 4.36L, Hemoglobin 12.9L, Hematocrit 38.6L, Mean Corpuscular Volume 88, Mean Corpuscular Hemoglobin 29.5, Mean Corpuscular Hemoglobin Concent 33.3, Red Cell Distribution Width 12.3, Platelet Count 76L, Mean Platelet Volume 8.8, Neutrophils (%) (Auto) , Lymphocytes (%) ( Auto) , Monocytes (%) (Auto) , Eosinophils (%) (Auto) , Basophils (%) (Auto) , Differential Total Cells Counted 100, Neutrophils % (Manual) 90H, Lymphocytes % (Manual) 9L, Monocytes % (Manual) 1, Eosinophils % (Manual) 0, Basophils % ( Manual) 0, Band Neutrophils 0, Platelet Estimate DecreasedL, Platelet Morphology Normal, Red Blood Cell Morphology Normal, Sodium Level 142, Potassium Level 4.2, Chloride Level 110H, Carbon Dioxide Level 16L, Anion Gap 16H, Blood Urea Nitrogen 44H, Creatinine 2.4H, Estimat Glomerular Filtration Rate 33.2, Glucose Level 153H, Calcium Level 9.4, Ammonia 13, Random Vancomycin Level 9.9 Height (Feet): 5 Height (Inches): 8.00 Weight (Pounds): 209 General Appearance: no apparent distress Neck: normal alignment, supple Cardiovascular: normal rate, regular rhythm Respiratory/Chest: lungs clear Abdomen: non tender, soft Edema: no edema noted Arm (L), no edema noted Arm (R), no edema noted Leg (L), no edema noted Leg (R), no edema noted Pedal (L), no edema noted Pedal (R), no edema noted Generalized Selvin Walters MD Mar 31, 2019 09:55
[2019-03-31] MEDS ORDERED: Vancomycin 1gm/D5W 275ml IVPB ONE ×2 (10:00)
--- NOTE | 2019-03-31 10:29 | NUR ---
CASE MANAGEMENT: REVIEW 03/31/19 SI: ALTERED LEVEL CONSCIOUS; INCREASE AMMONIA; HYPONATREMIA; ACUTE KIDNEY INJURY/ FEVER 100.5 107 26 107/68 94% NC 2L NA 132; NH3 68; RBC 4.13; H/H 12.4/36.2; PLT 83; CO2 19; BUN 54; CREAT 1.9; BG 222 TBIL 2.8; DBIL 1.8; ALK PHOS 198; AST 87 ABG: PCO2 28.8; HCO3 18.3 IS: IV ALBUMIN HUMAN X1 IVF NS BOLUS X1 IV VANCOMYCIN X1 IV AZTREONAM/DEXTROSE Q8HR IV KCL @75ML/HR IV METRONIDAZOLE @100ML/HR LACTULOSE PO TID PROTONIX PO QD PROSCAR PO QD NEURONTIN PO Q8HR COZAAR PO QD INDERAL PO Q8HR NOVOLOG SQ AC&HS TYLENOL PO Q4/PRN ALBUTEROL HHN Q4HR : 4E MED/SURG DCP: RETURN HOME WHEN MEDICALLY CLEARED PLAN: [facility] CALLED TX TO SDU Addendum: 03/31/19 at 1112 by DANIEL LUCERO LVN CASE MANAGEMENT: REVIEW 03/31/19 SI: ALTERED LEVEL CONSCIOUS; ACUTE KIDNEY INJURY/ FEVER 100.5 107 26 107/68 94% NC 2L CO2 16; BUN 44; CREAT 2.4 ABG: PCO2 17.6; HCO3 10.9 IS: IV ALBUMIN HUMAN X1 IVF NS BOLUS X1 IV VANCOMYCIN X1 IV AZTREONAM/DEXTROSE Q8HR IV KCL @75ML/HR IV METRONIDAZOLE @100ML/HR LACTULOSE PO TID PROTONIX PO QD PROSCAR PO QD NEURONTIN PO Q8HR COZAAR PO QD INDERAL PO Q8HR NOVOLOG SQ AC&HS TYLENOL PO Q4/PRN ALBUTEROL HHN Q4HR : 4E MED/SURG DCP: RETURN HOME WHEN MEDICALLY CLEARED PLAN: [facility] [facility] CALLED TX TO SDU
[2019-03-31] MEDS ORDERED: NS 250 ML IVPB ONE (10:45)
--- NOTE | 2019-03-31 10:50 | NUR ---
NURSE NOTES: Seen by Dr Valero, made aware of ABG results and Blood pressure rechecked 81/52. New order received for 25% Albumin once and bolus NS 250cc and he will follow up with needle loom tender Dr Walters again. Order noted and carried out
--- NOTE | 2019-03-31 11:04 | NUR ---
NURSE NOTES: Dr Chavarria made aware positive blood culture gram nedative rods x 4, no ID at this time.Awaiting new order Addendum: 03/31/19 at 1110 by Verona Wilkinson RN also made aware chest x ray result , will follow up new order
--- NOTE | 2019-03-31 12:37 | NUR ---
NURSE NOTES: self repositioning. no urine output put since 7am, bladder sacn 117cc, Dr Chavarria made aware.will continue monitor
--- NOTE | 2019-03-31 12:41 | NUR ---
NURSE NOTES: Lactulose held due to loose stool. Ammonia corrected 13 at this time,DR Chavarria made aware awaiting new order
--- NOTE | 2019-03-31 13:05 | NUR ---
NURSE NOTES: Left message to Dr Armenta for consult, . Per Dr Chavarria hold lactulose for loose stool. Addendum: 03/31/19 at 1310 by Verona Wilkinson RN call back received from Dr Armenta , D/C Aztreonam and disregard Amikacin order from Dr Chavarria and start pt on Meropenem 1g Q8hr, order noted and carried out
--- NOTE | 2019-03-31 14:15 | NUR ---
NURSE NOTES: Pt asleep, with no s/s acute distress. at bedside. Will continue to monitor
[2019-03-31] MEDS ORDERED: Meropenem 1 GM in NS 55 ML IVPB SCH (15:00)
[2019-03-31] MEDS ORDERED: NS 500ML ONE (15:38)
[2019-03-31] MEDS ORDERED: Tubing IV Secondary IV ONE (15:38)
--- NOTE | 2019-03-31 16:57 | NUR ---
NURSE NOTES: Episode of loose stools, brown liquid in texture will hold next dose Lactulose.Good pericare done.Kept clean and dry.Assisted in turning and repositioning.Will continue to monitor
--- NOTE | 2019-03-31 18:28 | NUR ---
NURSE NOTES: Pt complained of SOB, pt noted to be using accessories muscles despite saturation at 95%.Dr Valero paged awaiting call back. Charge nurse monitoring patient. Breathing treatment given by RT. Patient on close monitoring
--- NOTE | 2019-03-31 18:44 | NUR ---
NURSE NOTES: Dr Chavarria also paged, unable to reach him and either leave a message. Stat ABG ordered and IV fluids stopped at this time.Awaiting call back from either Marylu or Deon
--- NOTE | 2019-03-31 19:13 | NUR ---
NURSE NOTES: Order received from Dr Chavarria to transfer pt to ICU and intubate, order noted and carried out. Simran made aware of the change of condition
--- NOTE | 2019-03-31 19:20 | NUR ---
HAND-OFF: Report given to FIDEL Holder.
--- NOTE | 2019-03-31 19:20 | NUR ---
NURSE NOTES: Patient transferred to ICU per MD Chavarria for intubation. Called ER MD and notified in about the recent ABG. Stated he will be coming up to intubate
--- NOTE | 2019-03-31 19:25 | NUR ---
NURSE NOTES: Received report from Verona PARRA. patient transferred from SDU to ICU per Dr. Chavarria with SOB, ABG lab MD aware to transfer to ICU for intubation. Patient awake,alert received on Non-rebreather mask 100%. satting 98%. No s/s of acute distress noted. patient with labored breathing, restlessness. Instructed patient to use call light for assistance. bed alarm on. bed lock and in low position. Patient teaching provided. Encouraged patient to verbalized needs,fears and feelings to staff. Waiting for ER MD to intubate patient. Previous nurse left message to patient . St on fire adjuster HR 120 BP 201/98. Stayed with patient and held hands. call light within easy reach,will continue plan of care.
--- NOTE | 2019-03-31 19:27 | NUR ---
NURSE NOTES: Etomidate and Succ were given per ER MD order for intubation at this time. Intubation started
--- NOTE | 2019-03-31 19:30 | NUR ---
NURSE NOTES: Patient now intubated with bilateral breath sounds, stat chest xray ordered.
[2019-03-31] MEDS ORDERED: Acetaminophen 650mg/20.3ml NG PRN ×2 (20:15→20:25)
--- NOTE | 2019-03-31 20:21 | Diagnostic Imaging Report ---
EXAM: XR Chest, 1 View CLINICAL HISTORY: LINE TECHNIQUE: Frontal view of the chest. COMPARISON: Same day chest x-ray. FINDINGS: Lungs: Bilateral interstitial and alveolar edema. Pleural space: No large pleural effusion. No pneumothorax. Heart: Unremarkable. No cardiomegaly. Mediastinum: Unremarkable. Bones joints: Unremarkable. Tubes, lines and devices: The endotracheal tube terminates at the level of the clavicular heads. IMPRESSION: Bilateral interstitial and alveolar edema, progressed from earlier today.
[2019-03-31] MEDS ORDERED: oxyCODONE 5mg IR tab NG PRN (20:26)
--- NOTE | 2019-03-31 21:13 | NUR ---
NURSE NOTES: Dr. Chavarria made aware that the patient wants to talk to Md regarding the patient conditions.
[2019-03-31] MEDS ORDERED: Sodium Bicarbonate 50ml Carp IV SCH (21:45)
--- NOTE | 2019-03-31 21:45 | NUR ---
NURSE NOTES: Dr. Riley came and inserted Right Femoral MD CAR ordered Versed 1mg IVP.
--- NOTE | 2019-03-31 21:50 | NUR ---
NURSE NOTES: Spoke with Yelena the pharmacist at this time about stat levo needed at this time. informed me that they no longer carrt premixed bags and it would take 20 minutes to make. She said it was ok for me to mix the levophed myself and they would make an overnight bag for us
[2019-03-31] MEDS ORDERED: Levophed 4mg/4mL Inj IV ONE (21:56)
[2019-03-31] MEDS: Propranolol 40mg tab NG SCH (22:00)
[2019-03-31] MEDS ORDERED: Midazolam 2mg/2ml Inj IVP SCH (22:00)
--- NOTE | 2019-03-31 22:00 | NUR ---
NURSE NOTES: Called and notifies nursing Video Player Mechanic Salo about stat 2D echo. She has paged two of the techs, awaiting response from tech
--- NOTE | 2019-03-31 22:00 | NUR ---
NURSE NOTES: Called and spoke with Henry from the lab and he is aware of stat labs at this time
[2019-03-31] MEDS ORDERED: Rocuronium Bromide 50mg/5ml Inj IV ONE (22:08)
[2019-03-31] MEDS ORDERED: Etomidate 40mg/20ml Inj IV ONE (22:08)
[2019-03-31] MEDS ORDERED: Sodium Bicarbonate 50ml Carp IV ONE (22:15)
[2019-03-31] MEDS ORDERED: Sodium Bicarbonate 50ml Carp ONE (22:16)
--- NOTE | 2019-03-31 22:25 | NUR ---
NURSE NOTES: Henry Organ Pipe Voicer came and draw blood. collected urine culture send to lab
--- NOTE | 2019-03-31 22:30 | NUR ---
NURSE NOTES: Nursing beehive kiln supervisor Salo called and notified Registry to come in and due stat 2d ECHO. awaiting call back
[2019-03-31 22:47] LABS: HEMATOCRIT 37.6 % (42.0-52.0); HEMOGLOBIN 12.1 G/DL (14.2-18.0); MEAN CORPUSCULAR VOLUME 93 FL (80-99); PLATELET COUNT 138 K/UL (150-450); RED BLOOD COUNT 4.06 M/UL (4.70-6.10); RED CELL DISTRIBUTION WIDTH 13.5 % (11.6-14.8)
--- NOTE | 2019-03-31 22:48 | Diagnostic Imaging Report ---
EXAM: XR Abdomen, 2 Views CLINICAL HISTORY: NGT TECHNIQUE: Frontal view of the abdomen pelvis with upright view of the abdomen. COMPARISON: No relevant prior studies available. FINDINGS: Gastric decompression tube terminates within the stomach, proximal sidehole at the GE junction. IMPRESSION: Gastric decompression tube terminates within the stomach, proximal sidehole at the GE junction. Recommend advancing approximately 5 cm.
[2019-03-31] MEDS: Meropenem 1 GM in NS 55 ML IVPB SCH (22:53)
[2019-03-31 23:00] LABS: ANION GAP 14 mmol/L (5-15); BLOOD UREA NITROGEN 48 mg/dL (7-18); CALCIUM 8.3 MG/DL (8.5-10.1); CARBON DIOXIDE 18 MMOL/L (21-32); CHLORIDE 107 MMOL/L (98-107); CREATININE 3.3 MG/DL (0.55-1.30); SODIUM 139 MMOL/L (136-145)
--- NOTE | 2019-03-31 23:07 | NUR ---
NURSE NOTES: KUB done recommend to advance approximately 5 cm, advance approximate 5cm ordered stat KUB.
[2019-03-31 23:10] LABS: POTASSIUM 6.6 MMOL/L (3.5-5.1)
--- NOTE | 2019-03-31 23:10 | Emergency Room Report ---
History of Present Illness General Chief Complaint: Altered Level of Consciousness Source: Patient, Family Member, Medical Record Present Illness Allergies: Coded Allergies: PENICILLINS (Verified Allergy, Unknown, 03/29/19) Nursing Documentation-[facility] Hx Hypertension: Yes Hx Diabetes: Yes Hx Cancer: No Hx Gastrointestinal Problems: No Hx Neurological Problems: No Physical Exam Vital Signs Date Time Temp Pulse Resp B/P (MAP) Pulse Ox O2 Delivery O2 Flow Rate FiO2 03/29/19 22:25 98.4 86 14 143/80 (101) 95 Room Air 03/29/19 22:30 98 03/31/19 04:05 2.0 Procedures Critical Care Time Critical Care Time i. I feel this is a highly complex case requiring extensive working including EKG/Rhythm strip, Xray/CT/US, Blood/urine lab work, repeat exams while in ED, and administration of strong opiates/narcotics for pain control, admission to hospital or close patient follow up. Total time: 30 min bedside evaluation and treatment excludes procedures (EKG). Reason for critical care: respiratory distress, hypoxia Possible complications: hypotension, hypertension, OK, shock, arrhythmias, metabolic acidosis, end organ damage, respiratory failure. Interventions: intubation Course: I was called to the ICU to evaluate this patient. Became more short of breath today. ABG shows worsening. Chest x-ray shows worsening as well. Patient appears to be in distress. Discussed option of intubation with patient which he agreed with. I intubated patient. O2 sats improving. Chest x-ray confirms ET tube placement. Consultations: nursing staff, EMS, family Performed by: Dr Diaz Tolerated well condition = critical j. because of unstable vital signs this patient had a condition that could potentially threaten life or limb. I feel this is a critical patient who required my full attention while patient was considered critical. Total Critical Care Time excluding procedures was greater than 35 minutes Intubation Intubation : Consent: Verbal Intubation Method: orotracheal Tube Size (cm): 7.5 Medications: Etomidate, Rocuronium Breath Sounds after Intubation: equal Intubation Complications: no complications Post Intubation Xray: Yes Attempts: One Patient Tolerated: Well Complications: None Medical Decision Making Diagnostic Impression: Primary Impression: Altered level of consciousness Additional Impressions: Increased ammonia level Hyponatremia MORAIMA (acute kidney injury) Febrile illness ER Course I was called to the ICU to evaluate this patient. Patient became short of breath and moved to the ICU. O2 sats dropping. Placed on oxygen. ABG shows interval worsening. Chest x-ray shows increased effusion and/or edema. patient appears to be in distress. I discussed the option of intubation which patient agreed with. I used etomidate and rocuronium to sedate the patient and we intubated without difficulty. 02 sats improved. Patient placed on ventilator. Chest x-ray confirms ET tube placement Last Vital Signs Date Time Temp Pulse Resp B/P (MAP) Pulse Ox O2 Delivery O2 Flow Rate FiO2 03/31/19 22:19 55/26 03/31/19 22:10 68 31 100 03/31/19 18:43 95 Nasal Cannula 2.0 03/31/19 16:00 98.1 Status: improved Disposition: ADMITTED INPATIENT Condition: Critical Referrals: NOT CHOSEN IPA/,REFERRING (PCP) Kofi Diaz MD Mar 31, 2019 23:10
--- NOTE | 2019-03-31 23:15 | NUR ---
NURSE NOTES: Called and spoke with MD Chavarria at this time. Notified him about potassium 6.6 new orders were given. New BMP to be drawn tomorrow morning. Also per request of he wants the vent to be changed because he doesn't think the vent is working properly. orders read back and confirmed by Addendum: 04/01/19 at 0045 by DALTON GASCA RN MD Chavarria talked to at this time about patient condition. remains at the bedside
[2019-03-31] MEDS ORDERED: Calcium Gluconate 1gm/10ml vial IVP ONE (23:30)
[2019-03-31] MEDS ORDERED: Sodium Polystyrene Sulfonate 15gm Powder ORAL ONE (23:30)
--- NOTE | 2019-03-31 23:36 | NUR ---
NURSE NOTES: MD Chavarria called back with IV fluids to be changed to NS @ 150, informed him about the most recent WBC, amikacin to ge given. orders read back and confirmed by
[2019-03-31 23:42] LABS: APPEARANCE,URINE SLIGHTLY CLOUDY; BILIRUBIN, URINE NEGATIVE (NEGATIVE); COLOR,URINE BROWN; GLUCOSE, URINE (UA) 2+ (NEGATIVE); KETONES,URINE 1+ (NEGATIVE); LEUKOCYTE ESTERASE ,URINE 1+ (NEGATIVE); NITRITE,URINE NEGATIVE (NEGATIVE); PH,URINE 5 (4.5-8.0); PROTEIN,URINE 3+ (NEGATIVE); UROBILINOGEN,URINE 1 MG/DL (0.0-1.0)
[2019-03-31] MEDS ORDERED: Amikacin Rx to dose MISC ONE (23:45)
--- NOTE | 2019-03-31 23:46 | NUR ---
NURSE NOTES: MD Chavarria called back with new orders to change the AC from 24 to 32, give 2 amps of bicarb and repeat ABG in 30 min
[2019-04-01] VITALS (101 sets, daily range): BP systolic 60–173; BP diastolic 39–128
[2019-04-01] MEDS ORDERED: Sodium Bicarbonate 50ml Carp IV ONE ×2
[2019-04-01] MEDS: Phenylephrine 50 MG in D5W 245 ML IV SCH ×3 (00:09→19:42)
--- NOTE | 2019-04-01 00:15 | Diagnostic Imaging Report ---
EXAM: XR Abdomen, 2 Views CLINICAL HISTORY: LINE TECHNIQUE: Frontal view of the abdomen pelvis with upright view of the abdomen. COMPARISON: 03 31 2019. FINDINGS: Intraperitoneal space: No free air. Gastrointestinal tract: The stomach is distended with gas. Organs: Stones overlying the right upper quadrant. Bones joints: Right femoral line in place. Tubes, lines and devices: Gastric decompression tube terminates within the gastric body, proximal sidehole beyond the GE junction.. IMPRESSION: Gastric decompression tube terminates within the gastric body.
--- NOTE | 2019-04-01 00:27 | Emergency Room Report ---
History of Present Illness General Chief Complaint: Altered Level of Consciousness Source: Patient, Family Member, Medical Record Present Illness Allergies: Coded Allergies: PENICILLINS (Verified Allergy, Unknown, 03/29/19) Nursing Documentation-H Hx Hypertension: Yes Hx Diabetes: Yes Hx Cancer: No Hx Gastrointestinal Problems: No Hx Neurological Problems: No Physical Exam Vital Signs Date Time Temp Pulse Resp B/P (MAP) Pulse Ox O2 Delivery O2 Flow Rate FiO2 03/29/19 22:25 98.4 86 14 143/80 (101) 95 Room Air 03/29/19 22:30 98 03/31/19 04:05 2.0 Procedures Central Line Central Line : Consent: Emergent Central Line Lumen: triple Maximal Sterile Barrier Tech: yes cap, yes mask, yes sterile gown, yes sterile gloves, yes large sterile sheet, yes hand hygiene, yes chlorhexidine prep No Max Barrier Tech Because: emergency insertion Central Line Postion: femoral (R) Complications: none Central Line Post Position: sutured, good blood return Attempts: One Patient Tolerated: Well Complications: None Progress Patient was admitted for altered mental status, sepsis and respiratory failure. He was intubated earlier. I was called to the ICU for central line. Patient had hypotension and required pressors. On my arrival patient is moving around. So the safest place was in the right femoral area. I placed a triple-lumen in the right femoral vein without any difficulty. This was done under sterile condition using Seldinger technique. Medical Decision Making Diagnostic Impression: Primary Impression: Altered level of consciousness Additional Impressions: Increased ammonia level Hyponatremia MORAIMA (acute kidney injury) Febrile illness Last Vital Signs Date Time Temp Pulse Resp B/P (MAP) Pulse Ox O2 Delivery O2 Flow Rate FiO2 04/01/19 00:11 68 34 100 04/01/19 00:09 60/41 03/31/19 23:27 98 Mechanical Ventilator 95 03/31/19 18:43 2.0 03/31/19 16:00 98.1 Disposition: ADMITTED INPATIENT Condition: Critical Referrals: NOT CHOSEN IPA/,REFERRING (PCP) James Riley MD Apr 01, 2019 00:27
[2019-04-01] MEDS ORDERED: Dyna-Hex 2% Top Sol 2oz TOPIC ONE (00:30)
--- NOTE | 2019-04-01 00:48 | NUR ---
NURSE NOTES: Message left for MD Chavarria about Lactic acid 7.6. awaiting call back
[2019-04-01] MEDS ORDERED: Amikacin 500 MG in NS 110 ML IV ONE (01:00)
--- NOTE | 2019-04-01 01:09 | NUR ---
NURSE NOTES: Message left for MD Chavarria about the most recent ABG. awaiting call back
--- NOTE | 2019-04-01 01:30 | NUR ---
NURSE NOTES: family at bedside
[2019-04-01] MEDS ORDERED: Sodium Bicarbonate 50ml Carp IV SCH ×3 (01:45→12:45)
--- NOTE | 2019-04-01 01:45 | NUR ---
NURSE NOTES: MD Chavarria called back with orders to give 2 more amps bicarb IVP and ABG to be done @ 0600 Addendum: 04/01/19 at 0248 by DALTON GASCA RN also aware of 2D echo results at this time.
--- NOTE | 2019-04-01 02:00 | NUR ---
NURSE NOTES: Patient in bed restless, Bilateral soft wrist restraint checked, patient with episode of pulling out tubing and ETT, reality orientation provided not effective. no s/s of hypo/hyperglycemia. Continue on Levophed 30mcg/min and Titrate to Phenylephrine @ 200mcg/min BP 121/100, NS at 100cc/hr running at Right Femoral TLC. Oden cath intact draining with tea color urine. Oral care provided. Bed alarm on. bed locked and in low position. Frequent visual checks continued. Family at waiting room. Will continue plan of care.
--- NOTE | 2019-04-01 03:00 | NUR ---
NURSE NOTES: Bed bath given tolerated well. Bilateral soft wrist restraint checked, patient with episode of pulling out tubing and ETT, reality orientation provided not effective. no s/s of hypo/hyperglycemia. Continue on Levophed 30mcg/min and Phenylephrine @ 200mcg/min, NS at 100cc/hr running at Right Femoral TLC. Oden with poor urine output. Oral care provided. Bed alarm on. bed locked and in low position. Will continue plan of care.
[2019-04-01] MEDS ORDERED: Levophed 4mg/4mL Inj IV ONE (03:05)
[2019-04-01] MEDS: NOREPINEPHRINE BITARTRATE IV SCH ×2 (03:13→13:14)
[2019-04-01] MEDS: SODIUM CHLORIDE IV SCH ×2 (03:13→13:14)
[2019-04-01] MEDS: Albuterol/Ipratropium 3ml neb HHN SCH ×6 (03:19→23:06)
--- NOTE | 2019-04-01 03:30 | NUR ---
NURSE NOTES: Hold Phenylephrine drip BP 167/58.
--- NOTE | 2019-04-01 05:00 | NUR ---
NURSE NOTES: no s/s of hypo/hyperglycemia. Titrate Levophed to 20mcg/min BP 133/94 and NS at 100cc/hr running at Right Femoral TLC. Oden cath intact draining with dark marcell color urine. Oral care provided. Bed alarm on. bed locked and in low position. Turned and repositioned. no s/s of hypo/hyperglycemia. Frequent visual checks continued. Family at waiting room. Will continue plan of care.
[2019-04-01 06:20] LABS: HEMATOCRIT 36.4 % (42.0-52.0); MEAN CORPUSCULAR VOLUME 91 FL (80-99); PLATELET COUNT 99 K/UL (150-450); RED BLOOD COUNT 4.02 M/UL (4.70-6.10); RED CELL DISTRIBUTION WIDTH 13.5 % (11.6-14.8)
[2019-04-01 06:25] LABS: WHITE BLOOD COUNT 28.6 K/UL (4.8-10.8)
[2019-04-01] MEDS ORDERED: Pantoprazole Inj IVP SCH (06:30)
[2019-04-01 06:44] LABS: ANION GAP 21 mmol/L (5-15); BLOOD UREA NITROGEN 50 mg/dL (7-18); CALCIUM 8.8 MG/DL (8.5-10.1); CARBON DIOXIDE 17 MMOL/L (21-32); CHLORIDE 107 MMOL/L (98-107); CREATININE 3.3 MG/DL (0.55-1.30); POTASSIUM 5.4 MMOL/L (3.5-5.1); SODIUM 145 MMOL/L (136-145)
[2019-04-01] MEDS: Meropenem 1 GM in NS 55 ML IVPB SCH ×2 (06:45→18:15)
[2019-04-01] MEDS: NovoLOG Insulin Flexpen SUBQ SCH ×4 (06:45→21:00)
[2019-04-01] MEDS: Propranolol 40mg tab NG SCH ×3 (06:46→22:00)
--- NOTE | 2019-04-01 06:56 | NUR ---
NURSE NOTES: Spoke with MD Chavarria, he is aware of the latest ABG and new vent settings have been ordered. RT Candy aware.
--- NOTE | 2019-04-01 07:07 | NUR ---
RESPIRATORY NOTE: Received pt i intubated with ETT 7.5@ 22cm lips line, secured by anchor silvano, pr is on vent AC [id number]%FiO2- peep 10, saturates at 100%. Pt is awake, alert but drowsy. ABG done at 0636, titrated FiO2 down to 50% and peep to 5 per MD's order. Pt is tolerating well new settings, saturates at 96%. Pt is tachypneic RR >30 bpm, tachycardia HR 106bpm. Aleksandar clear diminished breath sounds, suctioned small amount of thick constantino brown red bloody with red specks secretions without incidents. Breathing Tx Duoneb given without any adverse reactions. Will continue to monitor pt. Addendum: 04/01/19 at 0843 by Quang Vieira RT Alarms are set and audible, vent is plugged into the red outlet, ambu bag is at bed side. Vent circuits and suction tubing are patent, secured and out of the way.
--- NOTE | 2019-04-01 07:10 | NUR ---
HAND-OFF: Report given to Vandana Brower RN.
--- NOTE | 2019-04-01 07:11 | NUR ---
NURSE NOTES: Received patient from FIDEL Holder. Patient alert to name, place, and purpose. Confused to time. Patient intubated with ET tube 7.5, 22cm at the lip line with ventilator setting of AC 32, tidal volume 600, FiO2 50%, and PEEP 5. Patient NPO at this time. Patient has an OGT for medication administration that is patent, asymptomatic, and auscultated/verified at this time. Patient skin intact at this time. Patient has carrillo in place at this time. Urine light marcell in color. skin intact. Patient has right femoral triple lumen central line. Pressure dressing in place at this time. Will replace dressing with sterile dressing when possible. Patient has normal saline at 100mL/hr. Patient has Levophed running at 10mcg/min at this time with blood pressure 92/58. Patient has left upper arm peripheral IV that is patent and saline locked at this time. Patient potassium is 5.4 this morning[address] Will make Dr Walters aware. Patient anxious at this time. Patient unable to have sedation due to unstable blood pressure. Will continue to monitor blood pressure and titrate levophed per protocol. Patient bed in low position with bed alarm on and call light in reach at this time.
--- NOTE | 2019-04-01 08:07 | Nephrology Progress Note ---
Assessment/Plan Assessment/Plan: A/P 1. MORAIMA. Multifact ATN - hypotension/sepsis/vol depletion. Worsened over nite requiring IV pressors - DCed ARB - Monitor aminoglycoside level carefully in light of severe ATN 2. Sepsis- Mgmt per PCP/ID - IV pressors and ABx+IVFs 3. History of liver cancer. 4. History of hep C in the past and concern for cirrhosis. 5. Hyperkalemia- due to RI - off ARB - K down to 5.4 recheck at 11 am Subjective Date patient seen: Apr 01, 2019 Time patient seen: 08:04 ROS Limited/Unobtainable: Yes Allergies: Coded Allergies: PENICILLINS (Verified Allergy, Unknown, 03/29/19) Subjective Patient now intubated on the ventilator Objective Last 24 Hour Vital Signs Date Time Temp Pulse Resp B/P (MAP) Pulse Ox O2 Delivery O2 Flow Rate FiO2 04/01/19 07:15 116 17 151/85 (107) 100 04/01/19 07:07 106 33 100 Mechanical Ventilator 50 113 34 50 04/01/19 07:00 153/89 04/01/19 07:00 99 26 153/89 (110) 97 04/01/19 06:46 103 122/101 04/01/19 06:45 115 28 119/76 (90) 99 04/01/19 06:30 117 35 108/68 (81) 100 04/01/19 06:15 119 25 113/47 (69) 100 04/01/19 06:00 122/101 04/01/19 05:45 121 34 132/68 (89) 100 04/01/19 05:30 105 29 142/100 (114) 100 04/01/19 05:15 104 30 133/94 (107) 100 04/01/19 05:00 104 33 121/44 (69) 98 04/01/19 05:00 133/94 04/01/19 04:56 103 32 100 04/01/19 04:45 104 32 105/39 (61) 100 04/01/19 04:30 106 25 120/101 (107) 98 04/01/19 04:15 106 34 115/68 (84) 100 04/01/19 04:00 99.1 107 33 117/50 (72) 100 04/01/19 04:00 Endotracheal Tube 100.0 04/01/19 04:00 110 04/01/19 04:00 117/50 04/01/19 04:00 100.0 100 04/01/19 03:45 112 29 167/58 (94) 100 04/01/19 03:30 107 31 112/66 (81) 100 04/01/19 03:19 111 33 100 Mechanical Ventilator 100 111 33 100 04/01/19 03:15 107 29 126/112 (117) 100 04/01/19 03:15 112 143/106 04/01/19 03:13 143/106 04/01/19 03:00 143/106 04/01/19 03:00 110 27 143/106 (118) 100 04/01/19 02:45 109 25 124/73 (90) 100 04/01/19 02:30 111 27 140/123 (129) 100 04/01/19 02:15 114 21 139/103 (115) 100 04/01/19 02:03 111 26 111/83 (92) 99 04/01/19 02:00 121/100 04/01/19 02:00 110 25 121/100 (107) 100 04/01/19 01:30 112 32 141/84 (103) 100 04/01/19 01:15 113 20 146/78 (100) 99 04/01/19 01:10 114 36 100 04/01/19 01:00 139/57 04/01/19 01:00 115 25 139/57 (84) 98 04/01/19 00:49 115 27 133/118 (123) 100 04/01/19 00:45 114 27 138/116 (123) 100 04/01/19 00:33 112/41 04/01/19 00:32 112/80 04/01/19 00:30 100.0 100 04/01/19 00:30 115 27 127/87 (100) 100 04/01/19 00:18 111 19 112/80 (91) 100 04/01/19 00:11 68 34 100 04/01/19 00:09 68 60/41 04/01/19 00:00 60/41 04/01/19 00:00 100.0 100 04/01/19 00:00 68 04/01/19 00:00 97.9 68 22 60/41 (47) 80 04/01/19 00:00 Endotracheal Tube 100.0 03/31/19 23:30 68 24 78/53 (61) 95 03/31/19 23:27 68 28 100 03/31/19 23:27 68 32 98 Mechanical Ventilator 100 69 32 95 03/31/19 23:15 68 25 94/50 (65) 81 03/31/19 23:00 69 25 89/49 (62) 95 03/31/19 23:00 89/49 03/31/19 22:45 68 17 88/70 (76) 89 03/31/19 22:41 67 18 63/50 (54) 93 03/31/19 22:39 67 26 72/41 (51) 93 03/31/19 22:33 67 26 82/48 (59) 92 03/31/19 22:30 70 28 58/48 (51) 93 03/31/19 22:19 55/26 03/31/19 22:15 69 26 93/44 (60) 91 03/31/19 22:10 68 31 100 03/31/19 22:00 67 25 77/56 (63) 94 03/31/19 22:00 68 55/26 03/31/19 21:52 78 25 56/41 (46) 92 03/31/19 21:40 69 25 100/67 (78) 91 03/31/19 21:30 73 23 78/43 (55) 94 03/31/19 21:00 72 32 100 03/31/19 21:00 80 28 111/66 (81) 97 03/31/19 20:45 79 23 117/70 (86) 98 03/31/19 20:30 81 22 130/73 (92) 97 03/31/19 20:15 89 21 132/80 (97) 98 03/31/19 20:04 112 19 152/112 (125) 99 03/31/19 20:00 121 19 179/124 (142) 100 03/31/19 20:00 118 03/31/19 20:00 Non-Rebreather 100.0 03/31/19 19:48 123 16 210/100 (136) 99 18/ 19:45 123 15 210/120 (150) 99 03/31/ 19:30 69 30 100 03/31/ 19:30 116 29 197/95 (129) 100 10/18/19 18:43 95 Nasal Cannula 2.0 28 03/31/19 18:31 115 22 95 Nasal Cannula 2.0 28 110 22 94 03/31/19 16:00 98 03/31/19 16:00 Nasal Cannula 2.0 03/31/19 16:00 Nasal Cannula 2.0 03/31/19 16:00 98.1 100 20 107/71 (83) 96 03/31/19 15:33 98 23 100 Nasal Cannula 2.0 28 97 23 98 03/31/19 13:11 101 83/51 03/31/19 12:00 100.2 101 26 83/51 (62) 94 03/31/19 12:00 101 03/31/19 12:00 Nasal Cannula 2.0 03/31/19 11:01 104 26 100 Nasal Cannula 2.0 28 101 26 97 03/31/19 09:50 98.8 03/31/19 09:00 87/50 Intake and Output 03/31/19 04/01/19 19:00 07:00 Intake Total 2722.416 ml 1849.0 ml Output Total 800 ml 680 ml Balance 1922.416 ml 1169.0 ml Intake Oral 700 ml IV Total 2022.416 ml 1849.0 ml Output Urine Total 800 ml 680 ml # Voids 2 # Bowel Movements 3 3 Laboratory Tests 03/31/19 18:50: Arterial Blood pH 7.150*L, Arterial Blood Partial Pressure CO2 31.2L, Arterial Blood Partial Pressure O2 56.3L, Arterial Blood HCO3 10.6*L, Arterial Blood Oxygen Saturation 82.7*L, Arterial Blood Base Excess -17.0*L, [place] Test Positive 03/31/19 20:30: Arterial Blood pH 7.056*L, Arterial Blood Partial Pressure CO2 42.9, Arterial Blood Partial Pressure O2 89.5, Arterial Blood HCO3 11.8*L, Arterial Blood Oxygen Saturation 93.8L, Arterial Blood Base Excess -18.1*L, [place] Test Positive 03/31/19 22:00: Arterial Blood pH 6.991*L, Arterial Blood Partial Pressure CO2 45.0, Arterial Blood Partial Pressure O2 89.3, Arterial Blood HCO3 10.6*L, Arterial Blood Oxygen Saturation 92.8L, Arterial Blood Base Excess -20.3*L, [place] Test Positive 03/31/19 22:14: White Blood Count 27.0#*H, Red Blood Count 4.06L, Hemoglobin 12.1L, Hematocrit 37.6L, Mean Corpuscular Volume 93, Mean Corpuscular Hemoglobin 29.9, Mean Corpuscular Hemoglobin Concent 32.3, Red Cell Distribution Width 13.5, Platelet Count 138#L, Mean Platelet Volume 8.5, Neutrophils (%) (Auto) , Lymphocytes (%) (Auto) , Monocytes (%) (Auto) , Eosinophils (%) (Auto) , Basophils (%) (Auto) , Differential Total Cells Counted 100, Neutrophils % (Manual) 70, Lymphocytes % ( Manual) 3L, Monocytes % (Manual) 5, Eosinophils % (Manual) 0, Basophils % ( Manual) 0, Band Neutrophils 22H, Platelet Estimate DecreasedL, Platelet Morphology Normal, Anisocytosis 1+, Sodium Level 139, Potassium Level 6.6#*H, Chloride Level 107, Carbon Dioxide Level 18L, Anion Gap 14, Blood Urea Nitrogen 48H, Creatinine 3.3H, Estimat Glomerular Filtration Rate 23.0, Glucose Level 336 #H, Lactic Acid Level 7.60H, Calcium Level 8.3L 03/31/19 22:30: Urine Color Brown, Urine Appearance Slightly cloudy, Urine pH 5, Urine Specific [place] 1.020, Urine Protein 3+H, Urine Glucose (UA) 2+H, Urine Ketones 1+H, Urine Blood 4+H, Urine Nitrite Negative, Urine Bilirubin Negative, Urine Urobilinogen 1H, Urine Leukocyte Esterase 1+H, Urine RBC 5-10H, Urine WBC 2-4, Urine Squamous Epithelial Cells Occasional, Urine Amorphous Sediment FewH, Urine Bacteria ManyH 04/01/19 01:03: Arterial Blood pH 7.152*L, Arterial Blood Partial Pressure CO2 37.1, Arterial Blood Partial Pressure O2 94.3, Arterial Blood HCO3 12.7*L, Arterial Blood Oxygen Saturation 96.4, Arterial Blood Base Excess -15.2*L, [place] Test Positive 04/01/19 04:31: White Blood Count 28.6*H, Red Blood Count 4.02L, Hemoglobin 12.0L, Hematocrit 36.4L, Mean Corpuscular Volume 91, Mean Corpuscular Hemoglobin 29.8, Mean Corpuscular Hemoglobin Concent 32.9, Red Cell Distribution Width 13.5, Platelet Count 99L, Mean Platelet Volume 8.4, Neutrophils (%) (Auto) , Lymphocytes (%) ( Auto) , Monocytes (%) (Auto) , Eosinophils (%) (Auto) , Basophils (%) (Auto) , Neutrophils % (Manual) [Pending], Lymphocytes % (Manual) [Pending], Platelet Estimate [Pending], Platelet Morphology [Pending], Sodium Level 145, Potassium Level 5.4H, Chloride Level 107, Carbon Dioxide Level 17L, Anion Gap 21H, Blood Urea Nitrogen 50H, Creatinine 3.3H, Estimat Glomerular Filtration Rate 23.0, Glucose Level 198#H, Lactic Acid Level 10.00H, Calcium Level 8.8, Ammonia < 10L 04/01/19 06:36: Arterial Blood pH 7.210*L, Arterial Blood Partial Pressure CO2 40.6, Arterial Blood Partial Pressure O2 273.7H, Arterial Blood HCO3 15.9*L, Arterial Blood Oxygen Saturation 99.0, Arterial Blood Base Excess -11.4*L, [place] Test Positive Height (Feet): 5 Height (Inches): 8.00 Weight (Pounds): 209 General Appearance: no apparent distress EENT: normal ENT inspection Neck: normal alignment, supple Cardiovascular: normal rate, regular rhythm Respiratory/Chest: rhonchi - bilaterally Abdomen: non tender, soft Edema: no edema noted Arm (L), no edema noted Arm (R), no edema noted Leg (L), no edema noted Leg (R), no edema noted Pedal (L), no edema noted Pedal (R), no edema noted Generalized Selvin Walters MD Apr 01, 2019 08:07
[2019-04-01] MEDS ORDERED: Lactulose 20gm/30ml UDC NG SCH (09:00)
[2019-04-01] MEDS: Pantoprazole Inj IVP SCH (09:46)
[2019-04-01] MEDS: Lactulose 20gm/30ml UDC NG SCH ×3 (09:46→18:06)
[2019-04-01] MEDS ORDERED: Lidocaine 1% 10mg/ml/Epi 0.005mg/ml 30ml vial INJ ONE (09:52)
[2019-04-01] MEDS ORDERED: LORazepam 1mg tab ORAL PRN (10:00)
[2019-04-01] MEDS: Morphine Sulfate 2mg/ml Inj(IV/IM USE ONLY) IVP PRN ×2 (10:05→11:12)
[2019-04-01] MEDS ORDERED: LORazepam Inj 2mg/ml 1ml IV SCH (10:15)
[2019-04-01] MEDS ORDERED: oxyCODONE 5mg IR tab NG PRN (10:15)
--- NOTE | 2019-04-01 10:22 | NUR ---
NURSE NOTES: Pt found with R fem TLC pulled out and blood all over. Dr Chavarria called and got order for Dr Mckenna to replace central line. Dr Mckenna able to place Left femoral TLC. Will continue to monitor.
--- NOTE | 2019-04-01 10:57 | Consultation ---
History of Present Illness General Date patient seen: Apr 01, 2019 Reason for Hospitalization: Altered Level of Consciousness Present Illness HPI This is a 63-year-old male who is currently admitted to [facility] intensive care unit with sepsis, rest or insufficiency requiring intubation on vent support, hypotension and tachycardia on pressors. Patient's is at bedside and helps assist with history. Patient is awake and responsive while on ventilatory support. In gathering information from history patient was recently admitted to outside facility with sepsis recovered and was doing well until declining and admitted to [facility] for care. Noted to have significant leukocytosis, febrile, respiratory depression. Was intubated for airway protection safety and now on ventilatory support. Prior had a right groin triple-lumen central line which during. Of agitation he is removed and he has poor peripheral access. Currently no nausea vomiting fever chills. Does have hypotension tachycardia and is on levo fed. Abdominal distention noted on KUB and NG tube placed with improvement of KUB findings. Surgery called to evaluate and assist with care. Allergies: Coded Allergies: PENICILLINS (Verified Allergy, Unknown, 03/29/19) Medication History Scheduled Finasteride* (Proscar*), 5 MG ORAL DAILY, (Reported) Gabapentin* (Gabapentin*), 300 MG ORAL THREE TIMES A DAY, (Reported) Hydrochlorothiazide* (Hydrochlorothiazide*), 25 MG ORAL DAILY, (Reported) Insulin Glargine (Lantus), 0 SUBQ BEDTIME, (Reported) Losartan Potassium (Losartan Potassium), 100 MG ORAL DAILY, (Reported) Omeprazole (Omeprazole), 20 MG ORAL DAILY, (Reported) Propranolol Hcl* (Inderal*), 40 MG ORAL THREE TIMES A DAY, (Reported) Scheduled PRN Oxycodone HCl (Oxycodone HCl), 5 MG ORAL Q4H PRN for For Pain, (Reported) Miscellaneous Medications Insulin Aspart (Novolog), 100 UNIT SQ, (Reported) Loratadine (Loratadine), 10 MG PO, (Reported) Methadone Hcl (Methadone Hcl), 5 MG PO, (Reported) Patient History Limited by: medical condition History Provided By: Patient, Family Member, Significant Other, Medical Record , PMD Healthcare decision maker Resuscitation status Full Code Advanced Directive on File Past Medical/Surgical History Past Medical/Surgical History: (1) Hyponatremia (2) Altered level of consciousness (3) MORAIMA (acute kidney injury) (4) Febrile illness (5) Increased ammonia level Review of Systems Review of Symptoms General ROS: no weight loss or fever Psychological ROS: no depression or mood changes, no memory loss Ophthalmic ROS: no visual changes or eye irritation ENT ROS: no nasal congestion, hearing loss, dizziness Allergy and Immunology ROS: no allergic symptoms or urticaria Hematological and Lymphatic ROS: no swollen glands, unusual bleeding or bruising Endocrine ROS: no polyuria, polydipsia, weight changes, temperature intolerance Respiratory ROS: no cough, shortness of breath, or wheezing Cardiovascular ROS: no chest pain or dyspnea on exertion Gastrointestinal ROS: denies abdominal pain, bright red blood in stool. Musculoskeletal ROS: no myalgias or arthralgias Neurological ROS: no TIA or stroke symptoms Dermatological ROS: no new or changing skin lesions, rashes or pruritis Physical Exam Physical Exam General appearance: alert, cooperative, no distress, appears stated age Head: Normocephalic, without obvious abnormality, atraumatic Eyes: conjunctivae/corneas clear. PERRL, EOM's intact. Fundi benign Throat: Lips, mucosa, and tongue normal. Teeth and gums normal Neck: supple, symmetrical, trachea midline, no adenopathy, thyroid: not enlarged, symmetric, no tenderness/mass/nodules, no carotid bruit and no JVD Lungs: Decreased auscultation bilaterally on vent support via ET tube Heart: regular rate and rhythm, S1, S2 normal, no murmur, click, rub or gallop Abdomen: soft, non-tender. Bowel sounds hypoactive. No masses, no organomegaly distended hypoactive bowel sounds Extremities: extremities normal, atraumatic, no cyanosis or edema Pulses: 2+ and symmetric Skin: Skin color, texture, turgor normal. No rashes or lesions Neurologic: Grossly normal Last 24 Hour Vital Signs Date Time Temp Pulse Resp B/P (MAP) Pulse Ox O2 Delivery O2 Flow Rate FiO2 04/01/19 10:40 122 34 50 04/01/19 09:01 119 38 50 04/01/19 07:15 116 17 151/85 (107) 100 04/01/19 07:07 106 33 100 Mechanical Ventilator 50 113 34 50 04/01/19 07:00 153/89 04/01/19 07:00 99 26 153/89 (110) 97 04/01/19 06:46 103 122/101 10/19/19 06:45 115 28 119/76 (90) 99 04/01/19 06:30 117 35 108/68 (81) 100 04/01/19 06:15 119 25 113/47 (69) 100 04/01/19 06:00 122/101 04/01/19 05:45 121 34 132/68 (89) 100 04/01/19 05:30 105 29 142/100 (114) 100 04/01/19 05:15 104 30 133/94 (107) 100 04/01/19 05:00 104 33 121/44 (69) 98 04/01/19 05:00 133/94 04/01/19 04:56 103 32 100 04/01/19 04:45 104 32 105/39 (61) 100 04/01/19 04:30 106 25 120/101 (107) 98 04/01/19 04:15 106 34 115/68 (84) 100 04/01/19 04:00 99.1 107 33 117/50 (72) 100 04/01/19 04:00 Endotracheal Tube 100.0 04/01/19 04:00 110 04/01/19 04:00 117/50 04/01/19 04:00 100.0 100 04/01/19 03:45 112 29 167/58 (94) 100 04/01/19 03:30 107 31 112/66 (81) 100 04/01/19 03:19 111 33 100 Mechanical Ventilator 100 111 33 100 04/01/19 03:15 107 29 126/112 (117) 100 04/01/19 03:15 112 143/106 04/01/19 03:13 143/106 04/01/19 03:00 143/106 04/01/19 03:00 110 27 143/106 (118) 100 04/01/19 02:45 109 25 124/73 (90) 100 04/01/19 02:30 111 27 140/123 (129) 100 04/01/19 02:15 114 21 139/103 (115) 100 04/01/19 02:03 111 26 111/83 (92) 99 04/01/19 02:00 121/100 04/01/19 02:00 110 25 121/100 (107) 100 04/01/19 01:30 112 32 141/84 (103) 100 04/01/19 01:15 113 20 146/78 (100) 99 04/01/19 01:10 114 36 100 04/01/19 01:00 139/57 04/01/19 01:00 115 25 139/57 (84) 98 04/01/19 00:49 115 27 133/118 (123) 100 04/01/19 00:45 114 27 138/116 (123) 100 04/01/19 00:33 112/41 04/01/19 00:32 112/80 04/01/19 00:30 100.0 100 04/01/19 00:30 115 27 127/87 (100) 100 04/01/19 00:18 111 19 112/80 (91) 100 04/01/19 00:11 68 34 100 04/01/19 00:09 68 60/41 04/01/19 00:00 60/41 04/01/19 00:00 100.0 100 04/01/19 00:00 68 04/01/19 00:00 97.9 68 22 60/41 (47) 80 04/01/19 00:00 Endotracheal Tube 100.0 03/31/19 23:30 68 24 78/53 (61) 95 03/31/19 23:27 68 28 100 03/31/19 23:27 68 32 98 Mechanical Ventilator 100 69 32 95 03/31/19 23:15 68 25 94/50 (65) 81 03/31/19 23:00 69 25 89/49 (62) 95 03/31/19 23:00 89/49 03/31/19 22:45 68 17 88/70 (76) 89 03/31/19 22:41 67 18 63/50 (54) 93 03/31/19 22:39 67 26 72/41 (51) 93 03/31/19 22:33 67 26 82/48 (59) 92 03/31/19 22:30 70 28 58/48 (51) 93 03/31/19 22:19 55/26 03/31/19 22:15 69 26 93/44 (60) 91 03/31/19 22:10 68 31 100 03/31/19 22:00 67 25 77/56 (63) 94 03/31/19 22:00 68 55/26 03/31/19 21:52 78 25 56/41 (46) 92 03/31/19 21:40 69 25 100/67 (78) 91 03/31/19 21:30 73 23 78/43 (55) 94 03/31/19 21:00 72 32 100 03/31/19 21:00 80 28 111/66 (81) 97 03/31/19 20:45 79 23 117/70 (86) 98 03/31/19 20:30 81 22 130/73 (92) 97 03/31/19 20:15 89 21 132/80 (97) 98 03/31/19 20:04 112 19 152/112 (125) 99 03/31/19 20:00 121 19 179/124 (142) 100 03/31/19 20:00 118 03/31/19 20:00 Non-Rebreather 100.0 03/31/19 19:48 123 16 210/100 (136) 99 03/31/19 19:45 123 15 210/120 (150) 99 03/31/19 19:30 69 30 100 03/31/19 19:30 116 29 197/95 (129) 100 03/31/19 18:43 95 Nasal Cannula 2.0 28 03/31/19 18:31 115 22 95 Nasal Cannula 2.0 28 110 22 94 03/31/19 16:00 98 03/31/19 16:00 Nasal Cannula 2.0 03/31/19 16:00 Nasal Cannula 2.0 03/31/19 16:00 98.1 100 20 107/71 (83) 96 03/31/19 15:33 98 23 100 Nasal Cannula 2.0 28 97 23 98 03/31/19 13:11 101 83/51 03/31/19 12:00 100.2 101 26 83/51 (62) 94 03/31/19 12:00 101 03/31/19 12:00 Nasal Cannula 2.0 03/31/19 11:01 104 26 100 Nasal Cannula 2.0 28 101 26 97 Intake and Output 03/31/19 04/01/19 19:00 07:00 Intake Total 2722.416 ml 1849.0 ml Output Total 800 ml 680 ml Balance 1922.416 ml 1169.0 ml Intake Oral 700 ml IV Total 2022.416 ml 1849.0 ml Output Urine Total 800 ml 680 ml # Voids 2 # Bowel Movements 3 3 Laboratory Tests Test 03/31/19 18:50 03/31/19 20:30 03/31/19 22:00 03/31/19 22:14 Arterial Blood pH 7.150 (7.350-7.450) 7.056 (7.350-7.450) 6.991 (7.350-7.450) Arterial Blood Partial Pressure CO2 31.2 mmHg (35.0-45.0) L 42.9 mmHg (35.0-45.0) 45.0 mmHg (35.0-45.0) Arterial Blood Partial Pressure O2 56.3 mmHg (75.0-100.0) L 89.5 mmHg (75.0-100.0) 89.3 mmHg (75.0-100.0) Arterial Blood HCO3 10.6 mmol/L (22.0-26.0) *L 11.8 mmol/L (22.0-26.0) *L 10.6 mmol/L (22.0-26.0) *L Arterial Blood Oxygen Saturation 82.7 % (95-100) *L 93.8 % (95-100) L 92.8 % (95-100) L Arterial Blood Base Excess -17.0 (-2-2) *L -18.1 (-2-2) *L -20.3 (-2-2) *L Fr[place] Test Positive Positive Positive White Blood Count 27.0 K/UL (4.8-10.8) #*H Red Blood Count 4.06 M/UL (4.70-6.10) L Hemoglobin 12.1 G/DL (14.2-18.0) L Hematocrit 37.6 % (42.0-52.0) L Mean Corpuscular Volume 93 FL (80-99) Mean Corpuscular Hemoglobin 29.9 PG (27.0-31.0) Mean Corpuscular Hemoglobin Concent 32.3 G/DL (32.0-36.0) Red Cell Distribution Width 13.5 % (11.6-14.8) Platelet Count 138 K/UL (150-450) #L Mean Platelet Volume 8.5 FL (6.5-10.1) Neutrophils (%) (Auto) % (45.0-75.0) Lymphocytes (%) (Auto) % (20.0-45.0) Monocytes (%) (Auto) % (1.0-10.0) Eosinophils (%) (Auto) % (0.0-3.0) Basophils (%) (Auto) % (0.0-2.0) Differential Total Cells Counted 100 Neutrophils % (Manual) 70 % (45-75) Lymphocytes % (Manual) 3 % (20-45) L Monocytes % (Manual) 5 % (1-10) Eosinophils % (Manual) 0 % (0-3) Basophils % (Manual) 0 % (0-2) Band Neutrophils 22 % (0-8) H Platelet Estimate Decreased L Platelet Morphology Normal Anisocytosis 1+ Sodium Level 139 MMOL/L (136-145) Potassium Level 6.6 MMOL/L (3.5-5.1) #*H Chloride Level 107 MMOL/L (98-107) Carbon Dioxide Level 18 MMOL/L (21-32) L Anion Gap 14 mmol/L (5-15) Blood Urea Nitrogen 48 mg/dL (7-18) H Creatinine 3.3 MG/DL (0.55-1.30) H Estimat Glomerular Filtration Rate 23.0 mL/min (>60) Glucose Level 336 MG/DL (74-106) #H Lactic Acid Level 7.60 mmol/L (0.4-2.0) H Calcium Level 8.3 MG/DL (8.5-10.1) L Test 03/31/19 22:30 04/01/19 01:03 04/01/19 04:31 04/01/19 06:36 Urine Color Brown Urine Appearance Slightly cloudy Urine pH 5 (4.5-8.0) Urine Specific [place] 1.020 (1.005-1.035) Urine Protein 3+ (NEGATIVE) H Urine Glucose (UA) 2+ (NEGATIVE) H Urine Ketones 1+ (NEGATIVE) H Urine Blood 4+ (NEGATIVE) H Urine Nitrite Negative (NEGATIVE) Urine Bilirubin Negative (NEGATIVE) Urine Urobilinogen 1 MG/DL (0.0-1.0) H Urine Leukocyte Esterase 1+ (NEGATIVE) H Urine RBC 5-10 /HPF (0 - 0) H Urine WBC 2-4 /HPF (0 - 0) Urine Squamous Epithelial Cells Occasional /LPF Urine Amorphous Sediment Few /LPF (NONE) H Urine Bacteria Many /HPF (NONE) H Arterial Blood pH 7.152 (7.350-7.450) 7.210 (7.350-7.450) Arterial Blood Partial Pressure CO2 37.1 mmHg (35.0-45.0) 40.6 mmHg (35.0-45.0) Arterial Blood Partial Pressure O2 94.3 mmHg (75.0-100.0) 273.7 mmHg (75.0-100.0) H Arterial Blood HCO3 12.7 mmol/L (22.0-26.0) *L 15.9 mmol/L (22.0-26.0) *L Arterial Blood Oxygen Saturation 96.4 % (95-100) 99.0 % (95-100) Arterial Blood Base Excess -15.2 (-2-2) *L -11.4 (-2-2) *L [place] Test Positive Positive White Blood Count 28.6 K/UL (4.8-10.8) *H Red Blood Count 4.02 M/UL (4.70-6.10) L Hemoglobin 12.0 G/DL (14.2-18.0) L Hematocrit 36.4 % (42.0-52.0) L Mean Corpuscular Volume 91 FL (80-99) Mean Corpuscular Hemoglobin 29.8 PG (27.0-31.0) Mean Corpuscular Hemoglobin Concent 32.9 G/DL (32.0-36.0) Red Cell Distribution Width 13.5 % (11.6-14.8) Platelet Count 99 K/UL (150-450) L Mean Platelet Volume 8.4 FL (6.5-10.1) Neutrophils (%) (Auto) % (45.0-75.0) Lymphocytes (%) (Auto) % (20.0-45.0) Monocytes (%) (Auto) % (1.0-10.0) Eosinophils (%) (Auto) % (0.0-3.0) Basophils (%) (Auto) % (0.0-2.0) Differential Total Cells Counted 100 Neutrophils % (Manual) 70 % (45-75) Lymphocytes % (Manual) 10 % (20-45) L Monocytes % (Manual) 4 % (1-10) Eosinophils % (Manual) 0 % (0-3) Basophils % (Manual) 0 % (0-2) Band Neutrophils 16 % (0-8) H Platelet Estimate Decreased L Platelet Morphology Normal Red Blood Cell Morphology Normal Sodium Level 145 MMOL/L (136-145) Potassium Level 5.4 MMOL/L (3.5-5.1) H Chloride Level 107 MMOL/L (98-107) Carbon Dioxide Level 17 MMOL/L (21-32) L Anion Gap 21 mmol/L (5-15) H Blood Urea Nitrogen 50 mg/dL (7-18) H Creatinine 3.3 MG/DL (0.55-1.30) H Estimat Glomerular Filtration Rate 23.0 mL/min (>60) Glucose Level 198 MG/DL (74-106) #H Lactic Acid Level 10.00 mmol/L (0.4-2.0) H Calcium Level 8.8 MG/DL (8.5-10.1) Ammonia < 10 umol/L (11-32) L Height (Feet): 5 Height (Inches): 8.00 Weight (Pounds): 209 Medications Current Medications Medications (Trade) Dose Ordered Sig/Lianna Route PRN Reason Start Time Stop Time Status Last Admin Dose Admin Acetaminophen (Tylenol) 650 mg Q4H PRN NG Mild Pain/Temp > 100.5 03/31/19 20:25 04/30/19 20:24 Al Hydroxide/Mg Hydroxide (Mylanta) 30 ml Q4H PRN NG Abdominal cramps 03/31/19 20:26 04/30/19 20:25 Albuterol/ Ipratropium (Albuterol/ Ipratropium) 3 ml Q4HRT HHN 03/31/19 23:00 04/05/19 06:59 04/01/19 06:56 Chlorhexidine Gluconate (Amrita-Hex 2%) 1 applic DAILY@1999 TOPIC 04/01/19 20:00 05/01/19 19:59 Chlorhexidine Gluconate (Amrita-Hex 2%) 1 applic DAILY@1999 TOPIC 04/01/19 20:00 05/01/19 19:59 Dextrose (Dextrose 50%) 25 ml Q30M PRN IV Hypoglycemia 03/31/19 20:30 04/29/19 06:29 Dextrose (Dextrose 50%) 50 ml Q30M PRN IV Hypoglycemia 03/31/19 20:30 04/29/19 06:29 Finasteride (Proscar) 5 mg DAILY ORAL 04/01/19 09:00 04/29/19 08:59 04/01/19 09:46 Gabapentin (Neurontin) 400 mg Q12HR NG 03/31/19 21:00 04/30/19 20:59 04/01/19 09:46 Insulin Aspart (NovoLOG) BEFORE MEALS AND HS SUBQ 03/31/19 21:00 04/29/19 07:29 04/01/19 06:45 Lactulose (Cephulac) 20 gm THREE TIMES A DAY NG 04/01/19 09:00 04/29/19 12:59 04/01/19 09:46 Lorazepam (Ativan 2mg/ml 1ml) 1 mg ONCE IV 04/01/19 10:15 04/01/19 12:14 04/01/19 10:19 Meropenem 1 gm/ Sodium Chloride 55 ml @ 110 mls/hr Q12H IVPB 04/01/19 18:00 04/06/19 17:59 Metronidazole 100 ml @ 100 mls/hr Q8HR@0100,0900,1700 IV 04/01/19 01:00 04/06/19 08:59 04/01/19 09:41 Morphine Sulfate (Morphine Sulfate) 2 mg Q2HR PRN IVP For Pain (7-10) 04/01/19 10:00 04/08/19 09:59 Norepinephrine Bitartrate 8 mg/ Sodium Chloride 508 ml @ 0 mls/hr Q24H IV 04/01/19 03:00 05/01/19 02:59 04/01/19 03:13 Oxycodone HCl (Roxicodone) 5 mg Q4H PRN NG PAIN 4-6 04/01/19 10:15 04/07/19 20:25 Pantoprazole (Protonix) 40 mg DAILY@0900 IVP 04/01/19 09:00 05/01/19 06:29 04/01/19 09:46 Phenylephrine HCl 50 mg/Dextrose 250 ml @ 0 mls/hr Q24H IV 03/31/19 23:45 04/30/19 23:44 04/01/19 03:15 Propranolol HCl (Inderal) 40 mg Q8HR NG 03/31/19 22:00 04/29/19 08:59 Sodium Chloride 1,000 ml @ 100 mls/hr Q10H IV 03/31/19 23:45 04/30/19 23:44 04/01/19 10:16 Vancomycin HCl (Vanco rx to dose) 1 ea DAILY PRN MISC Per rx protocol 04/01/19 09:00 04/29/19 06:14 Assessment/Plan Problem List: (1) Sepsis Assessment & Plan: 63-year-old male with fevers, leukocytosis, abnormal labs, respiratory depression, intubated on vent support, abdominal distention, UTI. Etiology of sepsis sepsis being worked up. Patient on IV antibiotics. Patient recently pulled out right groin triple-lumen central venous catheter and has poor peripheral access. Patient requiring pressors fluids and medications and is unable to receive them at this time. New central line was placed by myself at the bedside. Please refer to note. Worsening renal insufficiency NG tube to low intermittent suction IV fluids IV antibiotics Local wound care Line Care and management Trend labs We will follow with recommendations thank you for allowing me to participate in patient's care ICD Codes: A41.9 - Sepsis, unspecified organism SNOMED: 57392719 (2) Febrile illness ICD Codes: R50.9 - Fever, unspecified SNOMED: 048052208, [id number], [id number] Camden Mckenna Apr 01, 2019 10:57
--- NOTE | 2019-04-01 10:59 | Operative Note - PDOC ---
Operative Note Operative Note Date of Operation/Procedure: Apr 01, 2019 Pre-op Diagnosis: Sepsis, hypotension, tachycardia Procedure: Left femoral triple-lumen central venous catheter insertion Post-op Diagnosis: same as pre-op Surgeon: Camden Mckenna MD Anesthesia: local Specimen: none Complications: none Condition: unstable Estimated Blood Loss: minimal Drains: none Implant(s) used?: Yes - Triple-lumen central venous catheter Indications for Procedure 63-year-old male currently into the intensive care unit at [facility] with hypotension, tachycardia, sepsis. Patient requiring fluids medications IV antibiotics and pressors. Patient pulled out prior line and requires venous access. He is a poor peripheral stick and given the medications required needs central venous catheter. Risk-benefit alternatives were discussed with patient and the who consented to surgery at the bedside. Description of Procedure Patient made comfortable at the bedside in the supine position. The left groin was prepped draped in standard surgical fashion. Local anesthetic 1% lidocaine with epinephrine was infiltrated in the proposed skin site. A finder needle was used in the left leg on first stick. Guidewire was placed over the needle needle removed. Small skin incision wound was made around the guidewire and then tract was dilated. The triple-lumen catheter was inserted over the guidewire without complication or resistance. The guidewire was discarded and removed. All 3 ports flushed and aspirated venous blood appropriately. The line was sutured in place at 3 anchoring points and dressings were applied. Patient tolerated procedure well. Line is ready to use. We will monitor move when necessary. Camden Mckenna Apr 01, 2019 10:59
--- NOTE | 2019-04-01 11:06 | Critical Care Progress Note ---
Assessment/Plan Assessment/Plan respiratory failure acidemia met acidosis sepsis + Bcx diabetes ARF likely ATN PLAN hypervent pressors central line iv antibiotics Id and renal IV hydration ICU care critical at present Critical Care - Subjective Interval Events: acute overnight hypotension respiratory failure acidotic long d/w ROS Limited/Unobtainable: Yes Condition: critical EKG Rhythm: Sinus Tachycardia I&O: Intake and Output 03/31/19 04/01/19 19:00 07:00 Intake Total 2722.416 ml 1849.0 ml Output Total 800 ml 680 ml Balance 1922.416 ml 1169.0 ml Intake Oral 700 ml IV Total 2022.416 ml 1849.0 ml Output Urine Total 800 ml 680 ml # Voids 2 # Bowel Movements 3 3 Critical Care - Objective ET-Tube: 7.5 ET Position: 22 Last 24 Hour Vital Signs Date Time Temp Pulse Resp B/P (MAP) Pulse Ox O2 Delivery O2 Flow Rate FiO2 04/01/19 10:40 122 34 50 04/01/19 09:01 119 38 50 04/01/19 07:15 116 17 151/85 (107) 100 04/01/19 07:07 106 33 100 Mechanical Ventilator 50 113 34 50 04/01/19 07:00 153/89 04/01/19 07:00 99 26 153/89 (110) 97 04/01/19 06:46 103 122/101 04/01/19 06:45 115 28 119/76 (90) 99 04/01/19 06:30 117 35 108/68 (81) 100 04/01/19 06:15 119 25 113/47 (69) 100 04/01/19 06:00 122/101 04/01/19 05:45 121 34 132/68 (89) 100 04/01/19 05:30 105 29 142/100 (114) 100 04/01/19 05:15 104 30 133/94 (107) 100 04/01/19 05:00 104 33 121/44 (69) 98 04/01/19 05:00 133/94 04/01/19 04:56 103 32 100 04/01/19 04:45 104 32 105/39 (61) 100 04/01/19 04:30 106 25 120/101 (107) 98 04/01/19 04:15 106 34 115/68 (84) 100 04/01/19 04:00 99.1 107 33 117/50 (72) 100 04/01/19 04:00 Endotracheal Tube 100.0 04/01/19 04:00 110 04/01/19 04:00 117/50 04/01/19 04:00 100.0 100 04/01/19 03:45 112 29 167/58 (94) 100 04/01/19 03:30 107 31 112/66 (81) 100 04/01/19 03:19 111 33 100 Mechanical Ventilator 100 111 33 100 04/01/19 03:15 107 29 126/112 (117) 100 04/01/19 03:15 112 143/106 04/01/19 03:13 143/106 04/01/19 03:00 143/106 04/01/19 03:00 110 27 143/106 (118) 100 04/01/19 02:45 109 25 124/73 (90) 100 04/01/19 02:30 111 27 140/123 (129) 100 04/01/19 02:15 114 21 139/103 (115) 100 04/01/19 02:03 111 26 111/83 (92) 99 04/01/19 02:00 121/100 04/01/19 02:00 110 25 121/100 (107) 100 04/01/19 01:30 112 32 141/84 (103) 100 04/01/19 01:15 113 20 146/78 (100) 99 04/01/19 01:10 114 36 100 04/01/19 01:00 139/57 04/01/19 01:00 115 25 139/57 (84) 98 04/01/19 00:49 115 27 133/118 (123) 100 04/01/19 00:45 114 27 138/116 (123) 100 04/01/19 00:33 112/41 04/01/19 00:32 112/80 04/01/19 00:30 100.0 100 04/01/19 00:30 115 27 127/87 (100) 100 04/01/19 00:18 111 19 112/80 (91) 100 04/01/19 00:11 68 34 100 04/01/19 00:09 68 60/41 04/01/19 00:00 60/41 04/01/19 00:00 100.0 100 04/01/19 00:00 68 04/01/19 00:00 97.9 68 22 60/41 (47) 80 04/01/19 00:00 Endotracheal Tube 100.0 03/31/19 23:30 68 24 78/53 (61) 95 03/31/19 23:27 68 28 100 03/31/19 23:27 68 32 98 Mechanical Ventilator 100 69 32 95 03/31/19 23:15 68 25 94/50 (65) 81 03/31/19 23:00 69 25 89/49 (62) 95 03/31/19 23:00 89/49 03/31/19 22:45 68 17 88/70 (76) 89 03/31/19 22:41 67 18 63/50 (54) 93 03/31/19 22:39 67 26 72/41 (51) 93 03/31/19 22:33 67 26 82/48 (59) 92 03/31/19 22:30 70 28 58/48 (51) 93 03/31/19 22:19 55/26 03/31/19 22:15 69 26 93/44 (60) 91 03/31/19 22:10 68 31 100 03/31/19 22:00 67 25 77/56 (63) 94 03/31/19 22:00 68 55/26 03/31/19 21:52 78 25 56/41 (46) 92 03/31/19 21:40 69 25 100/67 (78) 91 03/31/19 21:30 73 23 78/43 (55) 94 03/31/19 21:00 72 32 100 03/31/19 21:00 80 28 111/66 (81) 97 03/31/19 20:45 79 23 117/70 (86) 98 03/31/19 20:30 81 22 130/73 (92) 97 03/31/19 20:15 89 21 132/80 (97) 98 03/31/19 20:04 112 19 152/112 (125) 99 03/31/19 20:00 121 19 179/124 (142) 100 03/31/19 20:00 118 03/31/19 20:00 Non-Rebreather 100.0 03/31/19 19:48 123 16 210/100 (136) 99 03/31/19 19:45 123 15 210/120 (150) 99 10/18/19 19:30 69 30 100 03/31/19 19:30 116 29 197/95 (129) 100 03/31/19 18:43 95 Nasal Cannula 2.0 28 03/31/19 18:31 115 22 95 Nasal Cannula 2.0 28 110 22 94 03/31/19 16:00 98 03/31/19 16:00 Nasal Cannula 2.0 03/31/19 16:00 Nasal Cannula 2.0 03/31/19 16:00 98.1 100 20 107/71 (83) 96 03/31/19 15:33 98 23 100 Nasal Cannula 2.0 28 97 23 98 03/31/19 13:11 101 83/51 03/31/19 12:00 100.2 101 26 83/51 (62) 94 03/31/19 12:00 101 03/31/19 12:00 Nasal Cannula 2.0 Labs: Labs Test 03/29/19 22:24 03/29/19 22:42 03/29/19 22:44 03/29/19 23:00 Urine Opiates Screen Negative (NEGATIVE) Urine Barbiturates Screen Negative (NEGATIVE) Phencyclidine (PCP) Screen Negative (NEGATIVE) Urine Amphetamines Screen Negative (NEGATIVE) Urine Benzodiazepines Screen Negative (NEGATIVE) Urine Cocaine Screen Negative (NEGATIVE) Urine Marijuana (THC) Screen Negative (NEGATIVE) White Blood Count 6.4 K/UL (4.8-10.8) Red Blood Count 4.13 M/UL (4.70-6.10) Hemoglobin 12.4 G/DL (14.2-18.0) Hematocrit 36.2 % (42.0-52.0) Mean Corpuscular Volume 88 FL (80-99) Mean Corpuscular Hemoglobin 30.0 PG (27.0-31.0) Mean Corpuscular Hemoglobin Concent 34.2 G/DL (32.0-36.0) Red Cell Distribution Width 11.2 % (11.6-14.8) Platelet Count 83 K/UL (150-450) Mean Platelet Volume 8.5 FL (6.5-10.1) Neutrophils (%) (Auto) % (45.0-75.0) Lymphocytes (%) (Auto) % (20.0-45.0) Monocytes (%) (Auto) % (1.0-10.0) Eosinophils (%) (Auto) % (0.0-3.0) Basophils (%) (Auto) % (0.0-2.0) Differential Total Cells Counted 100 Neutrophils % (Manual) 82 % (45-75) Lymphocytes % (Manual) 12 % (20-45) Monocytes % (Manual) 5 % (1-10) Eosinophils % (Manual) 0 % (0-3) Basophils % (Manual) 1 % (0-2) Band Neutrophils 0 % (0-8) Platelet Estimate Decreased Platelet Morphology Normal Red Blood Cell Morphology Normal Sodium Level 132 MMOL/L (136-145) Potassium Level 4.4 MMOL/L (3.5-5.1) Chloride Level 100 MMOL/L (98-107) Carbon Dioxide Level 19 MMOL/L (21-32) Anion Gap 13 mmol/L (5-15) Blood Urea Nitrogen 54 mg/dL (7-18) Creatinine 1.9 MG/DL (0.55-1.30) Estimat Glomerular Filtration Rate 43.5 mL/min (>60) Glucose Level 222 MG/DL (74-106) Lactic Acid Level 1.40 mmol/L (0.4-2.0) Calcium Level 9.2 MG/DL (8.5-10.1) Total Bilirubin 2.8 MG/DL (0.2-1.0) Direct Bilirubin 1.8 MG/DL (0.0-0.3) Aspartate Amino Transf (AST/SGOT) 87 U/L (15-37) Alanine Aminotransferase (ALT/SGPT) 69 U/L (12-78) Alkaline Phosphatase 198 U/L (46-116) Total Creatine Kinase 65 U/L (26-308) Creatine Kinase MB < 0.5 NG/ML (0.0-3.6) Creatine Kinase MB Relative Index 0.7 Troponin I 0.000 ng/mL (0.000-0.056) Total Protein 8.3 G/DL (6.4-8.2) Albumin 2.5 G/DL (3.4-5.0) Globulin 5.8 g/dL Albumin/Globulin Ratio 0.4 (1.0-2.7) Thyroid Stimulating Hormone (TSH) 0.790 uiU/mL (0.358-3.740) Salicylates Level < 0.2 ug/mL (2.8-20) Acetaminophen Level < 2 MCG/ML (10-30) Serum Alcohol < 3 mg/dL Acetone Level Negative (NEGATIVE) Urine Color Yellow Urine Appearance Clear Urine pH 5 (4.5-8.0) Urine Specific [place] 1.010 (1.005-1.035) Urine Protein 2+ (NEGATIVE) Urine Glucose (UA) Negative (NEGATIVE) Urine Ketones Negative (NEGATIVE) Urine Blood 3+ (NEGATIVE) Urine Nitrite Negative (NEGATIVE) Urine Bilirubin Negative (NEGATIVE) Urine Urobilinogen 4 MG/DL (0.0-1.0) Urine Leukocyte Esterase Negative (NEGATIVE) Urine RBC 2-4 /HPF (0 - 0) Urine WBC 0 /HPF (0 - 0) Urine Squamous Epithelial Cells None /LPF (NONE/OCC) Urine Bacteria Few /HPF (NONE) Ammonia 68 umol/L (11-32) Test 03/30/19 08:35 03/31/19 04:38 03/31/19 05:55 03/31/19 18:50 Hemoglobin A1c 7.4 % (4.3-6.0) Arterial Blood pH 7.410 (7.350-7.450) 7.150 (7.350-7.450) Arterial Blood Partial Pressure CO2 17.6 mmHg (35.0-45.0) 31.2 mmHg (35.0-45.0) Arterial Blood Partial Pressure O2 73.7 mmHg (75.0-100.0) 56.3 mmHg (75.0-100.0) Arterial Blood HCO3 10.9 mmol/L (22.0-26.0) 10.6 mmol/L (22.0-26.0) Arterial Blood Oxygen Saturation 94.4 % (95-100) 82.7 % (95-100) Arterial Blood Base Excess -11.1 (-2-2) -17.0 (-2-2) [place] Test Positive Positive White Blood Count 4.3 K/UL (4.8-10.8) Red Blood Count 4.36 M/UL (4.70-6.10) Hemoglobin 12.9 G/DL (14.2-18.0) Hematocrit 38.6 % (42.0-52.0) Mean Corpuscular Volume 88 FL (80-99) Mean Corpuscular Hemoglobin 29.5 PG (27.0-31.0) Mean Corpuscular Hemoglobin Concent 33.3 G/DL (32.0-36.0) Red Cell Distribution Width 12.3 % (11.6-14.8) Platelet Count 76 K/UL (150-450) Mean Platelet Volume 8.8 FL (6.5-10.1) Neutrophils (%) (Auto) % (45.0-75.0) Lymphocytes (%) (Auto) % (20.0-45.0) Monocytes (%) (Auto) % (1.0-10.0) Eosinophils (%) (Auto) % (0.0-3.0) Basophils (%) (Auto) % (0.0-2.0) Differential Total Cells Counted 100 Neutrophils % (Manual) 90 % (45-75) Lymphocytes % (Manual) 9 % (20-45) Monocytes % (Manual) 1 % (1-10) Eosinophils % (Manual) 0 % (0-3) Basophils % (Manual) 0 % (0-2) Band Neutrophils 0 % (0-8) Platelet Estimate Decreased Platelet Morphology Normal Red Blood Cell Morphology Normal Sodium Level 142 MMOL/L (136-145) Potassium Level 4.2 MMOL/L (3.5-5.1) Chloride Level 110 MMOL/L (98-107) Carbon Dioxide Level 16 MMOL/L (21-32) Anion Gap 16 mmol/L (5-15) Blood Urea Nitrogen 44 mg/dL (7-18) Creatinine 2.4 MG/DL (0.55-1.30) Estimat Glomerular Filtration Rate 33.2 mL/min (>60) Glucose Level 153 MG/DL (74-106) Calcium Level 9.4 MG/DL (8.5-10.1) Ammonia 13 umol/L (11-32) Random Vancomycin Level 9.9 ug/mL Test 03/31/19 20:30 03/31/19 22:00 03/31/19 22:14 03/31/19 22:30 Arterial Blood pH 7.056 (7.350-7.450) 6.991 (7.350-7.450) Arterial Blood Partial Pressure CO2 42.9 mmHg (35.0-45.0) 45.0 mmHg (35.0-45.0) Arterial Blood Partial Pressure O2 89.5 mmHg (75.0-100.0) 89.3 mmHg (75.0-100.0) Arterial Blood HCO3 11.8 mmol/L (22.0-26.0) 10.6 mmol/L (22.0-26.0) Arterial Blood Oxygen Saturation 93.8 % (95-100) 92.8 % (95-100) Arterial Blood Base Excess -18.1 (-2-2) -20.3 (-2-2) [place] Test Positive Positive White Blood Count 27.0 K/UL (4.8-10.8) Red Blood Count 4.06 M/UL (4.70-6.10) Hemoglobin 12.1 G/DL (14.2-18.0) Hematocrit 37.6 % (42.0-52.0) Mean Corpuscular Volume 93 FL (80-99) Mean Corpuscular Hemoglobin 29.9 PG (27.0-31.0) Mean Corpuscular Hemoglobin Concent 32.3 G/DL (32.0-36.0) Red Cell Distribution Width 13.5 % (11.6-14.8) Platelet Count 138 K/UL (150-450) Mean Platelet Volume 8.5 FL (6.5-10.1) Neutrophils (%) (Auto) % (45.0-75.0) Lymphocytes (%) (Auto) % (20.0-45.0) Monocytes (%) (Auto) % (1.0-10.0) Eosinophils (%) (Auto) % (0.0-3.0) Basophils (%) (Auto) % (0.0-2.0) Differential Total Cells Counted 100 Neutrophils % (Manual) 70 % (45-75) Lymphocytes % (Manual) 3 % (20-45) Monocytes % (Manual) 5 % (1-10) Eosinophils % (Manual) 0 % (0-3) Basophils % (Manual) 0 % (0-2) Band Neutrophils 22 % (0-8) Platelet Estimate Decreased Platelet Morphology Normal Anisocytosis 1+ Sodium Level 139 MMOL/L (136-145) Potassium Level 6.6 MMOL/L (3.5-5.1) Chloride Level 107 MMOL/L (98-107) Carbon Dioxide Level 18 MMOL/L (21-32) Anion Gap 14 mmol/L (5-15) Blood Urea Nitrogen 48 mg/dL (7-18) Creatinine 3.3 MG/DL (0.55-1.30) Estimat Glomerular Filtration Rate 23.0 mL/min (>60) Glucose Level 336 MG/DL (74-106) Lactic Acid Level 7.60 mmol/L (0.4-2.0) Calcium Level 8.3 MG/DL (8.5-10.1) Urine Color Brown Urine Appearance Slightly cloudy Urine pH 5 (4.5-8.0) Urine Specific [place] 1.020 (1.005-1.035) Urine Protein 3+ (NEGATIVE) Urine Glucose (UA) 2+ (NEGATIVE) Urine Ketones 1+ (NEGATIVE) Urine Blood 4+ (NEGATIVE) Urine Nitrite Negative (NEGATIVE) Urine Bilirubin Negative (NEGATIVE) Urine Urobilinogen 1 MG/DL (0.0-1.0) Urine Leukocyte Esterase 1+ (NEGATIVE) Urine RBC 5-10 /HPF (0 - 0) Urine WBC 2-4 /HPF (0 - 0) Urine Squamous Epithelial Cells Occasional /LPF Urine Amorphous Sediment Few /LPF (NONE) Urine Bacteria Many /HPF (NONE) Test 04/01/19 01:03 04/01/19 04:31 04/01/19 06:36 Arterial Blood pH 7.152 (7.350-7.450) 7.210 (7.350-7.450) Arterial Blood Partial Pressure CO2 37.1 mmHg (35.0-45.0) 40.6 mmHg (35.0-45.0) Arterial Blood Partial Pressure O2 94.3 mmHg (75.0-100.0) 273.7 mmHg (75.0-100.0) Arterial Blood HCO3 12.7 mmol/L (22.0-26.0) 15.9 mmol/L (22.0-26.0) Arterial Blood Oxygen Saturation 96.4 % (95-100) 99.0 % (95-100) Arterial Blood Base Excess -15.2 (-2-2) -11.4 (-2-2) [place] Test Positive Positive White Blood Count 28.6 K/UL (4.8-10.8) Red Blood Count 4.02 M/UL (4.70-6.10) Hemoglobin 12.0 G/DL (14.2-18.0) Hematocrit 36.4 % (42.0-52.0) Mean Corpuscular Volume 91 FL (80-99) Mean Corpuscular Hemoglobin 29.8 PG (27.0-31.0) Mean Corpuscular Hemoglobin Concent 32.9 G/DL (32.0-36.0) Red Cell Distribution Width 13.5 % (11.6-14.8) Platelet Count 99 K/UL (150-450) Mean Platelet Volume 8.4 FL (6.5-10.1) Neutrophils (%) (Auto) % (45.0-75.0) Lymphocytes (%) (Auto) % (20.0-45.0) Monocytes (%) (Auto) % (1.0-10.0) Eosinophils (%) (Auto) % (0.0-3.0) Basophils (%) (Auto) % (0.0-2.0) Differential Total Cells Counted 100 Neutrophils % (Manual) 70 % (45-75) Lymphocytes % (Manual) 10 % (20-45) Monocytes % (Manual) 4 % (1-10) Eosinophils % (Manual) 0 % (0-3) Basophils % (Manual) 0 % (0-2) Band Neutrophils 16 % (0-8) Platelet Estimate Decreased Platelet Morphology Normal Red Blood Cell Morphology Normal Sodium Level 145 MMOL/L (136-145) Potassium Level 5.4 MMOL/L (3.5-5.1) Chloride Level 107 MMOL/L (98-107) Carbon Dioxide Level 17 MMOL/L (21-32) Anion Gap 21 mmol/L (5-15) Blood Urea Nitrogen 50 mg/dL (7-18) Creatinine 3.3 MG/DL (0.55-1.30) Estimat Glomerular Filtration Rate 23.0 mL/min (>60) Glucose Level 198 MG/DL (74-106) Lactic Acid Level 10.00 mmol/L (0.4-2.0) Calcium Level 8.8 MG/DL (8.5-10.1) Ammonia < 10 umol/L (11-32) Objective: WDWN on vent reduced breath sounds bilaterally without rhonchi or wheeze [id number] tachy without MRG NABS nontender no HSM no CC edema nonfocal Micro: Microbiology Date/Time Source Procedure Growth Status 10/16/19 22:42 Blood Blood Culture - Final Enterobacter Cloacae Complex Complete 03/29/19 22:35 Blood Blood Culture - Final Enterobacter Cloacae Complex Complete Accucheck: 152 Amarjit Chavarria MD Apr 01, 2019 11:06
--- NOTE | 2019-04-01 11:45 | NUR ---
RESPIRATORY NOTE: Get a call from RN that pt didn't get his tidal volume. Went to check on the pt, RN Vandana and pt's at bedside. Patient fighting the ventilator, getting really agitated and unable to get his full volume, elevated HR >120bpm. Patient instructed to relax and calm down but pt was not compliant . Patient had been given Ativan with no effect. Suddenly, Patient became unresponsive with Blood pressure dropped to 60/43 and HR dropped to 43 beats per min. No respond to pain, or sternal rubs at 1130. Bagged pt via 15L 100%FiO2 ambu bag per RT Leticia. At 1140, pt start waking up and agitated again, HR increases to 107, saturation 97%, and RR 34. Patient awake but not following commands. Will continue to monitor pt closely in the mean time while awaiting for MD's order.
--- NOTE | 2019-04-01 11:55 | NUR ---
NURSE NOTES: At about 1115 RT Candy and RN in the room. Patient fighting the ventilator and unable to get his full volume. Patient instructed to let the ventilator breath for him. Patient had been given Ativan with no effect. Patient then given morphine 2mg per order for PRN pain management as patient indicated he was in pain. At 1130 patient became unresponsive with unequal pupillary dilation and unequal response. Blood pressure dropped to 60/43. HR dropped to 43 beats per min. levophed increased from 8 to 30mcg/min. Phenylephrine resumed at 150mcg/hr. Dr Chavarria notified at 1145. Received telephone order for STAT ABG and STAT head CT when patient stable enough to be moved. Orders read back, verified, and placed. Patient HR 106, blood pressure 117/55, oxygen saturation 97%, and RR 32. Patient starting to wake up and move around in the bed. RT trying to obtain ABG. Patient fighting. Restraints remain in place at this time. Patient not following commands.
--- NOTE | 2019-04-01 12:31 | NUR ---
NURSE NOTES: Dr Chavarria notified regarding ABG result. Received telephone order for 2amp Bicarb IV push stat. order read back, verified, and placed at this time.
--- NOTE | 2019-04-01 14:55 | NUR ---
RESPIRATORY NOTE: Got a call from HUBER Tam that pt self extubated at 1430 despite bilateral wrist restrains. Pt was placed on nonrebreather 15L 100%, saturates at 100%, no resp distress noted. Pt was intubated at 1455 per ER Doctor with ETT 7.5 @ 22cm lips line, secured with anchor fast. No change in vent settings. Pt is sedated, tolerating well. No breathing treatment given due to elevated heart rate. FIDEL Ross at bedside and aware. ABG in 1529. Will continue to monitor pt at the meantime.
[2019-04-01] MEDS: Sodium Bicarbonate 100 ML in D5NS 1,000 ML IV SCH (15:18)
[2019-04-01] MEDS ORDERED: Etomidate 40mg/20ml Inj IV ONE (15:42)
[2019-04-01] MEDS ORDERED: Rocuronium Bromide 50mg/5ml Inj IV ONE (15:42)
--- NOTE | 2019-04-01 15:44 | NUR ---
NURSE NOTES: Patient self extubated at 1430 despite restraint. ER doctor called to reintubate patient. Patient placed on 100% non-rebreather. 02 saturation 100%. Patient blood pressure 162/66, HR 126, RR 28. Called to notify Dr Chavarria at 1445. Received telephone order for Dr Chavarria for propofol drip for sedation. Order read back, verified, and entered. ER Doc reintubated patient at 1455. Patient given Etomidate 20mg and Lan 50mg. Patient intubated with 7.5 ETT with 22cm at the lip line. Patient on Propofol at this time at 5mcg/kg/min. Patient still sedated. Blood pressure 100/52 on Levophed 30mcg/min and phenylephrine 100mcg/min. Dr Chavarria notified regarding post intubation ABG result of pH 7.305, pCO2 30.8, pO2 113.8, HCO3 15, and base excess -10.2. No new orders received. Will continue to monitor at this time.
[2019-04-01] MEDS ORDERED: NS 275ml ONE ×2 (16:09→16:17)
[2019-04-01] MEDS ORDERED: Tubing IV Secondary IV ONE ×2 (16:09→16:57)
--- NOTE | 2019-04-01 16:41 | Diagnostic Imaging Report ---
EXAM: XR Chest, 1 View CLINICAL HISTORY: TUBE PLACEMENT TECHNIQUE: Frontal view of the chest. COMPARISON: 03 31 19. FINDINGS IMPRESSION: Interval placement of enteric tube coursing below the diaphragm and out of the [id number]. Stable satisfactory positioning of endotracheal tube. Extensive bilateral parenchymal consolidation again noted.
[2019-04-01] MEDS ORDERED: NS 500ML ONE (16:57)
[2019-04-01] MEDS ORDERED: D5W 275ml ONE (16:57)
[2019-04-01] MEDS: Norepinephrine Bitartrate 16 MG in Sodium Chloride 484 ML IV SCH (18:06)
--- NOTE | 2019-04-01 19:14 | NUR ---
HAND-OFF: Report given to FIDEL Levine. Patient blood pressure 122/62 on levophed 26mcg/min and phenylephrine 150mcg/min. Patient on propofol 30mcg at this time. Endorsed to monitor and follow up.
--- NOTE | 2019-04-01 19:15 | NUR ---
NURSE NOTES: Received report from FIDEL Ross. Patient is obtunded. Responsive to touch. ETT 7.5/22cm at lip line and vent setting AC 32, VT 600, FiO2 50% and Peep on 5. OGT intact and NPO. Oden intact and draining with marcell color urine. Left femoral TLC intact and dressing noted with scant blood. Propofol running 30mcg/kg/min with RASS -2, Levophed 26mcg/min, Matthew 150mcg/min and D5NS with sodium bicarb @100ml/hr. On bilateral soft wrist restraints. Skin intact and clean on restraints site. Kept dry, clean, comfortable and HOB>30. Call light placed in easy reach.
[2019-04-01] MEDS ORDERED: Dyna-Hex 2% Top Sol 2oz TOPIC SCH (20:00)
--- NOTE | 2019-04-01 20:00 | NUR ---
NURSE NOTES: Patient is awake and trying to remove restraints. Increased propofol 30mcg/kg/min to 35mcg/kg/min.
--- NOTE | 2019-04-01 20:30 | NUR ---
NURSE NOTES: US tech is here for venous duplex. Patient is still trying to remove restraints and move around. Increased propofol drip from 35mcg/kg/min to 40mcg/kg/min. Will continue plan of care.
--- NOTE | 2019-04-01 20:45 | Consultation ---
DATE OF CONSULTATION: 04/01/2019 INFECTIOUS DISEASE CONSULTATION This consult is for coverage of Gina Weathers M.D. CONSULTING PHYSICIAN: Jr Rubi M.D. PRIMARY ATTENDING PHYSICIAN: Amarjit Chavarria M.D. REASON FOR CONSULTATION: Septic shock and Enterobacter sepsis. HISTORY OF PRESENT ILLNESS: The patient is a 63-year-old male admitted on March 30, 2019, from home with altered mental status. He was confused, disoriented, forgetful, unresponding, and has bizarre behavior. He had fever of 102.6 in the ER, had lactic acidosis and tachycardia, was intubated and transferred in ICU, and he had femoral line placement. He self-extubated himself today and reintubated, currently getting vasopressor, and is sedated with propofol. PAST MEDICAL HISTORY: Hepatitis C, history of polysubstance abuse, is status post cholecystectomy, has history of left ankle surgery, and right knee osteochondroma. ALLERGIES: Allergic to penicillin. MEDICATIONS: Meropenem, propofol, oxycodone, morphine sulfate, finasteride, lactulose, vancomycin to be dosed per pharmacy, norepinephrine , phenylephrine, sodium chloride, albuterol and ipratropium inhaler, propranolol, gabapentin, and Tylenol. SOCIAL HISTORY: . He has history of smoking, drinking, and heroin abuse. He was on methadone. REVIEW OF SYSTEMS: Unobtainable. PHYSICAL EXAMINATION: VITAL SIGNS: Temperature is 98.8, pulse 108, and respiration 32. GENERAL APPEARANCE: Seems to be well developed. HEAD AND NECK: Orally intubated. HEART: Tachycardic. He has left femoral line. LUNGS: Clear, on ventilator. ABDOMEN: Soft and nontender. EXTREMITIES: No edema. LABORATORY AND DIAGNOSTIC DATA: Urine toxicology was negative. WBC 28.6, hemoglobin 12, hematocrit 36.4, and platelet is 99,000. Sodium 145, potassium 5.4, BUN 50, creatinine 3.3, glucose is 194. UA showed rbc of 5-10 and wbc of 2-4. Chest x-ray was negative. Abdominal ultrasound showed previous cholecystectomy, splenomegaly, may have cirrhotic liver changes with liver nodularity. Blood cultures x2 are growing Enterobacter. IMPRESSION: Sepsis with septic shock, seems to have Enterobacter sepsis, has acute renal failure, acute respiratory failure, lactic acidosis, splenomegaly, likely cirrhosis, history of hepatitis C, history of polysubstance abuse, and penicillin allergy. RECOMMENDATION: Continue meropenem. Discontinue vancomycin and Flagyl. At the end of my exam, I thank Dr. Chavarria for involving me in the care of this patient. Jr Rubi M.D. DR: Edwige JOB#: [id number] CC: JOSE LUIS
[2019-04-01] MEDS: Dyna-Hex 2% Top Sol 2oz TOPIC SCH (21:00)
--- NOTE | 2019-04-01 21:00 | NUR ---
NURSE NOTES: Venous duplex is negative. Put SCD on. Will continue plan fo care.
--- NOTE | 2019-04-01 21:15 | NUR ---
NURSE NOTES: Blood sugar 62 noted. Dex 50% 25ml is given as ordered.
--- NOTE | 2019-04-01 21:40 | Diagnostic Imaging Report ---
EXAM: US Duplex Bilateral Lower Extremities Veins CLINICAL HISTORY: DVT TECHNIQUE: Real-time duplex ultrasound scan of the bilateral lower extremity veins integrating B-mode two-dimensional vascular structure, Doppler spectral analysis, color flow Doppler imaging and compression. COMPARISON: No relevant prior studies available. FINDINGS: Right deep veins: Unremarkable. No DVT in the right common femoral, femoral, proximal deep femoral or popliteal veins. The veins demonstrate normal color flow, are normally compressible, with normal phasic flow and or augmentation response. Left deep veins: Unremarkable. No DVT in the left common femoral, femoral, proximal deep femoral or popliteal veins. The veins demonstrate normal color flow, are normally compressible, with normal phasic flow and or augmentation response. IMPRESSION: No DVT
--- NOTE | 2019-04-01 21:50 | NUR ---
NURSE NOTES: Rechecked BS. BS 112 at this time. Will continue to monitor.
--- NOTE | 2019-04-01 23:30 | NUR ---
NURSE NOTES: Patient is awake and trying to move around and reach ETT and wrist restraints. Propofol increased 40mcg/kg/min to 45mcg/kg/min. Vital signs stable. Will continue plan of care.
[2019-04-02] VITALS (101 sets, daily range): BP systolic 72–131; BP diastolic 32–102
--- NOTE | 2019-04-02 | NUR ---
NURSE NOTES: Repositioned patient and oral care provided.
--- NOTE | 2019-04-02 00:19 | Cardiology Report ---
APPROVED REPORT EKG Measurement Heart [id number] Normal sinus rhythm Normal ECG
[2019-04-02] MEDS: Phenylephrine 50 MG in D5W 245 ML IV SCH ×5 (01:20→22:53)
--- NOTE | 2019-04-02 01:20 | NUR ---
NURSE NOTES: Started new propofol vial and changed tubing. Still on 45mcg/kg/min with RASS -2. Will continue plan of care.
[2019-04-02] MEDS: Sodium Bicarbonate 100 ML in D5NS 1,000 ML IV SCH (01:25)
--- NOTE | 2019-04-02 01:30 | NUR ---
NURSE NOTES: Changed left femoral TLC dressing. Removed right femoral dressing S/P removal TLC and removed sutures. No bleeding noted. Will continue plan of care.
[2019-04-02] MEDS: Albuterol/Ipratropium 3ml neb HHN SCH ×6 (03:08→23:00)
--- NOTE | 2019-04-02 03:11 | NUR ---
NURSE NOTES: Titrate down FiO2 from 50% to 40% per RT. Will continue to monitor.
[2019-04-02] MEDS: Norepinephrine Bitartrate 16 MG in Sodium Chloride 484 ML IV SCH ×3 (03:41→22:28)
--- NOTE | 2019-04-02 04:10 | NUR ---
NURSE NOTES: Bed bath and oral care provided.
[2019-04-02 05:21] LABS: HEMATOCRIT 34.1 % (42.0-52.0); HEMOGLOBIN 11.9 G/DL (14.2-18.0); MEAN CORPUSCULAR VOLUME 90 FL (80-99); PLATELET COUNT 91 K/UL (150-450); RED BLOOD COUNT 3.78 M/UL (4.70-6.10); RED CELL DISTRIBUTION WIDTH 13.5 % (11.6-14.8); WHITE BLOOD COUNT 15.5 K/UL (4.8-10.8)
[2019-04-02 05:31] LABS: INR 3.1 (0.9-1.1)
[2019-04-02] MEDS: Propranolol 40mg tab NG SCH ×3 (06:00→22:00)
--- NOTE | 2019-04-02 06:00 | NUR ---
NURSE NOTES: Vent setting AC 32, VT 600, FiO2 40% and peep on 5. Still on propofol @50mcg/kg/min with RASS -2, Levophed @26mcg/min, Matthew @150mcg/min and D5NS with Sodium bicarb @100ml/hr. ST 100-110s on the monitor. Left femoral TLC dressing intact and clean. Oden intact and draining dark marcell color urine. SCD on. Kept dry, clean, comfortable and HOB>30. Will continue plan of care.
[2019-04-02] MEDS: Meropenem 1 GM in NS 55 ML IVPB SCH ×2 (06:03→17:48)
[2019-04-02] MEDS: NovoLOG Insulin Flexpen SUBQ SCH ×4 (06:04→17:48)
[2019-04-02 06:15] LABS: ALANINE AMINOTRANSFERASE 1522 U/L (12-78); ALBUMIN/GLOBULIN RATIO 0.5 (1.0-2.7); ALKALINE PHOSPHATASE 357 U/L (46-116); ANION GAP 25 mmol/L (5-15); BILIRUBIN,TOTAL 3.5 MG/DL (0.2-1.0); BLOOD UREA NITROGEN 59 mg/dL (7-18); CALCIUM 8.1 MG/DL (8.5-10.1); CARBON DIOXIDE 15 MMOL/L (21-32); CHLORIDE 111 MMOL/L (98-107); CREATININE 3.5 MG/DL (0.55-1.30); POTASSIUM 4.9 MMOL/L (3.5-5.1); SODIUM 151 MMOL/L (136-145)
--- NOTE | 2019-04-02 06:45 | NUR ---
NURSE NOTES: BP dropped to 83/46. Increased levophed 26mcg/kg/min to 28mcg/kg/min.
--- NOTE | 2019-04-02 07:00 | NUR ---
NURSE NOTES: BP is still low 83/42. Increased levophed to 30mcg/kg/min.
--- NOTE | 2019-04-02 07:04 | NUR ---
RESPIRATORY NOTE: Received pt intubated with ETT 7.5@ 22cm lips line, secured by anchor fast, pr is on vent AC 32-600ml-40%FiO2- peep 5, saturates at 100%. Pt is sedated, no resp distress noted at this time. Aleksandar clear diminished breath sounds, suctioned small amount of thin red bloody with small clots secretions without incidents. Breathing Tx Duoneb given without any adverse reactions. Alarms are set and audible, vent is plugged into the red outlet, ambu bag is at bedside.Will continue to monitor pt. Addendum: 04/02/19 at 0916 by Quang Vieira RT Vent circuits and suction tubing are secured and out of the way
--- NOTE | 2019-04-02 07:15 | NUR ---
NURSE NOTES: BP 101/49. Will continue to monitor.
--- NOTE | 2019-04-02 07:30 | NUR ---
NURSE NOTES: Received the patient from FIDEL Oropeza. Patient is sedated, on propofol, at RASS -2. SR-ST 90s-110s noted oncardiac monitor. ETT 7.5, 22cm at lip line, vent settings: AC32, VT 60, FIO2 40%, PEEP 5. No acute distress noted. O2 sat 100%. OGT intact, Patient kept NPO. HOB kept elevated. Left femoral TLC intact, dressing intact, clean and dry, running propofol 30mcg/kg/min, D5NS with 2amp sodium bicarb at 100ml/hr, Levophed at 30mcg/min, and Matthew at 150mcg/min. Oden cath intact, draining dark marcell color urine. Abdomen distended, non-tender. Patient on bilateral soft wrist restraints to prevent from pulling ETT. No skin breakdown noted. pulses present but weak. SCDs on bilateral lower extremities. Call light within reach. Bed in lowest position, locked, side rails upx3. Bed alarm on. Will continue to monitor.
--- NOTE | 2019-04-02 07:31 | NUR ---
HAND-OFF: Report given to FIDEL Munguia. Endorsed plan of care.
[2019-04-02 07:45] LABS: ASPARTATE AMINO TRANSFERASE 2617 U/L (15-37); BILIRUBIN,DIRECT 1.9 MG/DL (0.0-0.3)
--- NOTE | 2019-04-02 08:02 | Critical Care Progress Note ---
Assessment/Plan Assessment/Plan respiratory failure acidemia met acidosis sepsis + Bcx diabetes ARF likely ATN shock liver PLAN hypervent pressors GI eval central line iv antibiotics Id and renal IV hydration- hypotonic; defer to renal ICU care critical at present Critical Care - Subjective Interval Events: self extubated on vent and sedated ROS Limited/Unobtainable: Yes Condition: critical EKG Rhythm: Sinus Rhythm I&O: Intake and Output 04/01/19 04/02/19 19:00 07:00 Intake Total 2343.93 ml 2628.157 ml Output Total 445 ml 175 ml Balance 1898.93 ml 2453.157 ml Free Water 50 ml IV Total 2293.93 ml 2628.157 ml Output Urine Total 445 ml 175 ml # Bowel Movements 2 Critical Care - Objective ET-Tube: 7.5 ET Position: 22 Last 24 Hour Vital Signs Date Time Temp Pulse Resp B/P (MAP) Pulse Ox O2 Delivery O2 Flow Rate FiO2 04/02/19 07:30 106 34 105/47 (66) 100 04/02/19 07:15 118 30 101/49 (66) 100 04/02/19 07:04 105 34 100 Mechanical Ventilator 40 87 32 40 04/02/19 07:00 83/42 04/02/19 07:00 32 83/42 Endotracheal Tube 40 04/02/19 07:00 88 96/47 04/02/19 07:00 87 24 83/46 (58) 100 04/02/19 06:45 92 32 96/47 (63) 100 04/02/19 06:45 83/46 04/02/19 06:30 99 33 95/47 (63) 100 04/02/19 06:15 98 29 95/46 (62) 100 04/02/19 06:00 95/46 04/02/19 06:00 32 95/46 Endotracheal Tube 40 04/02/19 06:00 100 100/45 04/02/19 06:00 97 34 100/45 (63) 100 04/02/19 05:45 100 33 96/48 (64) 100 04/02/19 05:30 104 36 102/51 (68) 100 04/02/19 05:17 115 35 40 04/02/19 05:15 99 33 112/51 (71) 100 04/02/19 05:00 109/52 04/02/19 05:00 33 109/52 Mechanical Ventilator 40 04/02/19 04:45 97 36 99/49 (66) 99 04/02/19 04:33 32 102/47 Endotracheal Tube 40 04/02/19 04:30 97 35 102/47 (65) 100 04/02/19 04:30 36 102/47 Endotracheal Tube 40 04/02/19 04:15 99 37 107/51 (69) 100 04/02/19 04:15 36 102/47 Endotracheal Tube 40 04/02/19 04:00 Endotracheal Tube 04/02/19 04:00 107/51 04/02/19 04:00 37 107/51 Endotracheal Tube 40 04/02/19 04:00 98.3 101 37 110/44 (66) 99 04/02/19 04:00 95 04/02/19 03:45 36 110/44 Endotracheal Tube 40 04/02/19 03:45 106 37 130/54 (79) 100 04/02/19 03:41 101/83 04/02/19 03:40 101/83 04/02/19 03:30 100 31 101/83 (89) 100 04/02/19 03:30 33 101/83 Endotracheal Tube 40 04/02/19 03:18 100 32 100 Mechanical Ventilator 40 04/02/19 03:15 92 32 95/43 (60) 100 04/02/19 03:12 40 04/02/19 03:08 94 32 100 Mechanical Ventilator 40 94 32 40 04/02/19 03:00 94 32 100/46 (64) 100 04/02/19 03:00 100/46 04/02/19 03:00 32 100/46 Endotracheal Tube 50 04/02/19 02:45 96 32 99/45 (63) 100 04/02/19 02:31 94 31 93/41 (58) 100 04/02/19 02:30 95 32 85/43 (57) 100 04/02/19 02:15 97 33 107/49 (68) 100 04/02/19 02:00 107/49 04/02/19 02:00 33 107/49 Endotracheal Tube 50 04/02/19 02:00 99 34 99/49 (66) 100 04/02/19 01:45 97 32 105/49 (67) 100 04/02/19 01:30 98 33 50 04/02/19 01:30 98 33 98/47 (64) 100 04/02/19 01:20 103 122/107 04/02/19 01:19 30 122/107 Endotracheal Tube 50 04/02/19 01:18 33 119/44 Endotracheal Tube 50 04/02/19 01:15 102 32 119/44 (69) 100 04/02/19 01:00 97 33 99/47 (64) 100 04/02/19 01:00 122/107 04/02/19 00:45 98 34 93/49 (64) 100 04/02/19 00:30 100 34 102/48 (66) 98 04/02/19 00:30 34 93/49 Endotracheal Tube 50 04/02/19 00:15 34 102/48 Endotracheal Tube 50 04/02/19 00:15 100 35 100/49 (66) 100 04/02/19 00:00 50 04/02/19 00:00 101 04/02/19 00:00 Endotracheal Tube 04/02/19 00:00 100/49 04/02/19 00:00 35 100/49 Endotracheal Tube 50 04/02/19 00:00 99.3 102 35 106/53 (70) 100 04/01/19 23:45 35 106/53 Endotracheal Tube 50 04/01/19 23:45 105 35 109/45 (66) 100 04/01/19 23:30 109 28 121/58 (79) 98 04/01/19 23:30 30 121/58 Endotracheal Tube 50 04/01/19 23:16 108 33 99 Mechanical Ventilator 50 04/01/19 23:15 97 32 93/49 (64) 100 04/01/19 23:06 103 35 99 Mechanical Ventilator 50 103 35 50 04/01/19 23:00 107/52 04/01/19 23:00 30 107/52 Endotracheal Tube 50 04/01/19 23:00 103 35 107/52 (70) 100 04/01/19 22:45 105 31 105/53 (70) 04/01/19 22:30 105 34 113/49 (70) 100 04/01/19 22:25 99.5 04/01/19 22:15 107 37 111/46 (67) 99 04/01/19 22:00 110 25 125/76 (92) 99 04/01/19 22:00 125/76 04/01/19 22:00 30 125/76 Endotracheal Tube 50 04/01/19 22:00 110 121/60 04/01/19 21:45 99.6 108 32 121/60 (80) 99 04/01/19 21:30 109 30 110/57 (74) 99 04/01/19 21:15 29 121/60 Endotracheal Tube 50 04/01/19 21:15 100.4 104 33 104/49 (67) 100 04/01/19 21:10 107 34 50 04/01/19 21:03 30 105/65 Endotracheal Tube 50 04/01/19 21:00 104/49 04/01/19 21:00 32 104/49 Mechanical Ventilator 50 04/01/19 21:00 106 36 105/65 (78) 100 04/01/19 20:45 36 105/65 Endotracheal Tube 50 04/01/19 20:45 108 37 105/57 (73) 99 04/01/19 20:30 109 27 111/54 (73) 99 04/01/19 20:30 33 115/54 Mechanical Ventilator 50 04/01/19 20:15 111 35 113/46 (68) 99 04/01/19 20:15 30 115/70 Endotracheal Tube 50 04/01/19 20:00 98.8 110 26 118/84 (95) 99 04/01/19 20:00 Endotracheal Tube 04/01/19 20:00 105 04/01/19 20:00 50 04/01/19 20:00 118/84 04/01/19 20:00 29 118/84 Endotracheal Tube 50 04/01/19 19:51 100 29 102/71 (81) 100 04/01/19 19:48 99 28 88/45 (59) 100 04/01/19 19:45 97 32 87/43 (58) 100 04/01/19 19:42 98 115/53 04/01/19 19:37 98 34 100 Mechanical Ventilator 50 04/01/19 19:30 106 35 115/53 (73) 100 04/01/19 19:27 106 36 100 Mechanical Ventilator 50 106 36 50 04/01/19 19:15 105 36 116/49 (71) 100 04/01/19 19:00 107 34 122/64 (83) 99 04/01/19 19:00 122/62 04/01/19 19:00 35 122/62 Endotracheal Tube 50 04/01/19 18:55 122/62 04/01/19 18:55 122/62 04/01/19 18:55 122/62 04/01/19 18:55 122/62 04/01/19 18:55 122/62 04/01/19 18:55 122/62 04/01/19 18:55 122/62 04/01/19 18:55 122/62 04/01/19 18:55 32 122/62 Mechanical Ventilator 04/01/19 18:55 32 122/62 Mechanical Ventilator 04/01/19 18:55 32 122/62 Mechanical Ventilator 04/01/19 18:55 32 122/62 Mechanical Ventilator 04/01/19 18:55 32 122/62 Mechanical Ventilator 04/01/19 18:55 32 122/62 Mechanical Ventilator 04/01/19 18:55 32 122/62 Mechanical Ventilator 04/01/19 18:55 32 122/62 Mechanical Ventilator 04/01/19 18:45 107 34 122/64 (83) 99 04/01/19 18:45 122/64 04/01/19 18:45 122/64 04/01/19 18:45 122/64 04/01/19 18:45 122/64 04/01/19 18:45 122/64 04/01/19 18:45 122/64 04/01/19 18:45 122/64 04/01/19 18:45 122/64 04/01/19 18:45 32 122/64 Mechanical Ventilator 04/01/19 18:45 32 122/64 Mechanical Ventilator 04/01/19 18:45 32 122/64 Mechanical Ventilator 04/01/19 18:45 32 122/64 Mechanical Ventilator 04/01/19 18:45 32 122/64 Mechanical Ventilator 04/01/19 18:45 32 122/64 Mechanical Ventilator 04/01/19 18:45 32 122/64 Mechanical Ventilator 04/01/19 18:45 32 122/64 Mechanical Ventilator 04/01/19 18:30 111/58 04/01/19 18:30 111/58 04/01/19 18:30 111/58 04/01/19 18:30 111/58 04/01/19 18:30 111/58 04/01/19 18:30 111/58 04/01/19 18:30 111/58 18:30 111/58 04/01/ 18:30 32 111/58 Mechanical Ventilator 04/01/19 18:30 32 111/58 Mechanical Ventilator 04/01/19 18:30 32 111/58 Mechanical Ventilator 04/01/19 18:30 32 111/58 Mechanical Ventilator 04/01/19 18:30 32 111/58 Mechanical Ventilator 04/01/19 18:30 32 111/58 Mechanical Ventilator 04/01/19 18:30 32 111/58 Mechanical Ventilator 04/01/19 18:30 32 111/58 Mechanical Ventilator 04/01/19 18:30 105 32 111/58 (75) 99 04/01/19 18:15 111/58 04/01/19 18:15 111/58 04/01/19 18:15 111/58 04/01/19 18:15 111/58 04/01/19 18:15 111/58 04/01/19 18:15 111/58 04/01/19 18:15 111/58 04/01/19 18:15 111/58 04/01/19 18:15 32 122/64 Mechanical Ventilator 04/01/19 18:15 32 122/64 Mechanical Ventilator 04/01/19 18:15 32 122/64 Mechanical Ventilator 04/01/19 18:15 32 122/64 Mechanical Ventilator 04/01/19 18:15 32 122/64 Mechanical Ventilator 04/01/19 18:15 32 122/64 Mechanical Ventilator 04/01/19 18:15 32 122/64 Mechanical Ventilator 04/01/19 18:15 32 122/64 Mechanical Ventilator 04/01/19 18:15 104 31 100/67 (78) 99 04/01/19 18:06 79/44 04/01/19 18:03 102 31 79/44 (56) 100 04/01/19 18:00 102 29 79/44 (56) 99 04/01/19 18:00 32 111/58 Mechanical Ventilator 04/01/19 18:00 32 111/58 Mechanical Ventilator 04/01/19 18:00 32 111/58 Mechanical Ventilator 04/01/19 18:00 32 111/58 Mechanical Ventilator 04/01/19 18:00 32 111/58 Mechanical Ventilator 04/01/19 18:00 32 111/58 Mechanical Ventilator 04/01/19 18:00 32 111/58 Mechanical Ventilator 04/01/19 18:00 32 111/58 Mechanical Ventilator 04/01/19 17:45 32 79/44 Mechanical Ventilator 04/01/19 17:45 32 79/44 Mechanical Ventilator 04/01/19 17:45 32 79/44 Mechanical Ventilator 04/01/19 17:45 32 79/44 Mechanical Ventilator 04/01/19 17:45 32 79/44 Mechanical Ventilator 04/01/19 17:45 32 79/44 Mechanical Ventilator 04/01/19 17:45 32 79/44 Mechanical Ventilator 04/01/19 17:45 32 79/44 Mechanical Ventilator 04/01/19 17:45 98/51 04/01/19 17:45 98/51 04/01/19 17:45 104 33 98/51 (67) 99 04/01/19 17:30 125 32 97/72 (80) 99 04/01/19 17:30 32 98/51 Mechanical Ventilator 04/01/19 17:30 32 98/51 Mechanical Ventilator 04/01/19 17:30 32 98/51 Mechanical Ventilator 04/01/19 17:30 32 98/51 Mechanical Ventilator 04/01/19 17:30 32 98/51 Mechanical Ventilator 04/01/19 17:30 32 98/51 Mechanical Ventilator 04/01/19 17:30 32 98/51 Mechanical Ventilator 04/01/19 17:30 32 98/51 Mechanical Ventilator 04/01/19 17:30 98/51 04/01/19 17:30 98/51 04/01/19 17:30 98/51 04/01/19 17:30 98/51 04/01/19 17:30 98/51 04/01/19 17:30 98/51 04/01/19 17:30 98/51 04/01/19 17:30 98/51 04/01/19 17:15 32 97/72 Mechanical Ventilator 04/01/19 17:15 32 97/72 Mechanical Ventilator 04/01/19 17:15 32 97/72 Mechanical Ventilator 04/01/19 17:15 32 97/72 Mechanical Ventilator 04/01/19 17:15 32 97/72 Mechanical Ventilator 04/01/19 17:15 32 97/72 Mechanical Ventilator 04/01/19 17:15 32 97/72 Mechanical Ventilator 04/01/19 17:15 32 97/72 Mechanical Ventilator 04/01/19 17:15 97/72 04/01/19 17:15 97/72 04/01/19 17:15 97/72 04/01/19 17:15 97/72 04/01/19 17:15 97/72 04/01/19 17:15 97/72 04/01/19 17:15 97/72 04/01/19 17:15 97/72 04/01/19 17:15 127 31 119/53 (75) 99 04/01/19 17:00 32 119/53 Mechanical Ventilator 04/01/19 17:00 32 119/53 Mechanical Ventilator 04/01/19 17:00 32 119/53 Mechanical Ventilator 04/01/19 17:00 32 119/53 Mechanical Ventilator 04/01/19 17:00 32 119/53 Mechanical Ventilator 04/01/19 17:00 32 119/53 Mechanical Ventilator 04/01/19 17:00 32 119/53 Mechanical Ventilator 04/01/19 17:00 32 119/53 Mechanical Ventilator 04/01/19 17:00 119/53 04/01/19 17:00 160/70 04/01/19 17:00 119/53 04/01/19 17:00 119/53 04/01/19 17:00 119/53 04/01/19 17:00 119/53 04/01/19 17:00 119/53 04/01/19 17:00 119/53 04/01/19 17:00 119/53 04/01/19 17:00 127 30 111/60 (77) 99 04/01/19 16:45 32 111/60 Mechanical Ventilator 04/01/19 16:45 32 111/60 Mechanical Ventilator 04/01/19 16:45 32 111/60 Mechanical Ventilator 04/01/19 16:45 32 111/60 Mechanical Ventilator 04/01/19 16:45 32 111/60 Mechanical Ventilator 04/01/19 16:45 32 111/60 Mechanical Ventilator 04/01/19 16:45 32 111/60 Mechanical Ventilator 04/01/19 16:45 32 111/60 Mechanical Ventilator 04/01/19 16:45 94/51 04/01/19 16:45 94/51 04/01/19 16:45 94/51 04/01/19 16:45 94/51 04/01/19 16:45 94/51 04/01/19 16:45 94/51 04/01/19 16:45 94/51 04/01/19 16:45 94/51 04/01/19 16:45 102 31 94/51 (65) 100 04/01/19 16:30 105 30 118/55 (76) 99 04/01/19 16:30 106 33 50 04/01/19 16:30 32 94/51 Mechanical Ventilator 04/01/19 16:30 32 94/51 Mechanical Ventilator 04/01/19 16:30 32 94/51 Mechanical Ventilator 04/01/19 16:30 32 94/51 Mechanical Ventilator 04/01/19 16:30 32 94/51 Mechanical Ventilator 04/01/19 16:30 32 94/51 Mechanical Ventilator 04/01/19 16:30 32 94/51 Mechanical Ventilator 04/01/19 16:30 32 94/51 Mechanical Ventilator 04/01/19 16:30 118/55 04/01/19 16:30 118/55 04/01/19 16:30 118/55 04/01/19 16:30 118/55 04/01/19 16:30 118/55 04/01/19 16:30 118/55 04/01/19 16:30 118/55 04/01/19 16:30 118/55 04/01/19 16:15 105 31 114/56 (75) 99 04/01/19 16:15 32 118/55 Mechanical Ventilator 04/01/19 16:15 32 118/55 Mechanical Ventilator 04/01/19 16:15 32 118/55 Mechanical Ventilator 04/01/19 16:15 32 118/55 Mechanical Ventilator 04/01/19 16:15 32 118/55 Mechanical Ventilator 04/01/19 16:15 32 118/55 Mechanical Ventilator 04/01/19 16:15 32 118/55 Mechanical Ventilator 04/01/19 16:15 32 118/55 Mechanical Ventilator 04/01/19 16:15 118/55 04/01/19 16:15 118/55 04/01/19 16:15 118/55 04/01/19 16:15 118/55 04/01/19 16:15 118/55 04/01/19 16:15 118/55 04/01/19 16:15 118/55 04/01/19 16:15 118/55 04/01/19 16:11 105 32 125/51 (75) 99 04/01/19 16:00 98.6 129 30 154/73 (100) 98 04/01/19 16:00 32 125/51 Mechanical Ventilator 04/01/19 16:00 32 125/51 Mechanical Ventilator 04/01/19 16:00 32 125/51 Mechanical Ventilator 04/01/19 16:00 32 125/51 Mechanical Ventilator 04/01/19 16:00 32 125/51 Mechanical Ventilator 04/01/19 16:00 32 125/51 Mechanical Ventilator 04/01/19 16:00 32 125/51 Mechanical Ventilator 04/01/19 16:00 32 125/51 Mechanical Ventilator 04/01/19 16:00 154/73 04/01/19 16:00 154/73 04/01/19 16:00 154/73 04/01/19 16:00 154/73 04/01/19 16:00 154/73 04/01/19 16:00 154/73 04/01/19 16:00 152/63 04/01/19 16:00 154/73 04/01/19 16:00 154/73 04/01/19 16:00 129 04/01/19 16:00 Endotracheal Tube 04/01/19 15:45 122 32 100/52 (68) 100 04/01/19 15:45 32 154/73 Mechanical Ventilator 04/01/19 15:45 32 154/73 Mechanical Ventilator 04/01/19 15:45 32 154/73 Mechanical Ventilator 04/01/19 15:45 32 154/73 Mechanical Ventilator 04/01/19 15:45 32 154/73 Mechanical Ventilator 04/01/19 15:45 32 154/73 Mechanical Ventilator 04/01/19 15:45 32 154/73 Mechanical Ventilator 04/01/19 15:45 32 154/73 Mechanical Ventilator 04/01/19 15:45 154/73 04/01/19 15:45 154/73 04/01/19 15:45 154/73 04/01/19 15:45 154/73 04/01/19 15:45 154/73 04/01/19 15:45 154/73 04/01/19 15:45 154/73 04/01/19 15:45 154/73 04/01/19 15:30 122 32 102/56 (71) 100 04/01/19 15:30 32 100/52 Mechanical Ventilator 04/01/19 15:30 32 100/52 Mechanical Ventilator 04/01/19 15:30 32 100/52 Mechanical Ventilator 04/01/19 15:30 32 100/52 Mechanical Ventilator 04/01/19 15:30 32 100/52 Mechanical Ventilator 04/01/19 15:30 32 100/52 Mechanical Ventilator 04/01/19 15:30 32 100/52 Mechanical Ventilator 04/01/19 15:30 32 100/52 Mechanical Ventilator 04/01/19 15:30 32 100/52 Mechanical Ventilator 04/01/19 15:30 100/52 04/01/19 15:30 100/52 04/01/19 15:30 100/52 04/01/19 15:30 100/52 04/01/19 15:30 100/52 04/01/19 15:30 100/52 04/01/19 15:30 100/52 04/01/19 15:30 100/52 04/01/19 15:18 32 94/51 Mechanical Ventilator 04/01/19 15:18 32 94/51 Mechanical Ventilator 04/01/19 15:18 32 94/51 Mechanical Ventilator 04/01/19 15:18 32 94/51 Mechanical Ventilator 04/01/19 15:18 32 94/51 Mechanical Ventilator 04/01/19 15:18 32 94/51 Mechanical Ventilator 04/01/19 15:18 32 94/51 Mechanical Ventilator 04/01/19 15:18 32 94/51 Mechanical Ventilator 04/01/19 15:15 122 31 89/48 (62) 99 04/01/19 15:15 32 94/49 Mechanical Ventilator 50 04/01/19 15:15 102/56 04/01/19 15:15 102/56 04/01/19 15:15 102/56 04/01/19 15:15 102/56 04/01/19 15:15 102/56 04/01/19 15:15 102/56 04/01/19 15:15 102/56 04/01/19 15:15 102/56 04/01/19 15:14 122 31 94/49 (64) 100 04/01/19 15:00 122 28 86/49 (61) 99 04/01/19 15:00 87/48 04/01/19 15:00 87/48 04/01/19 15:00 87/48 04/01/19 15:00 /48 04/01/19 15:00 48 04/01/19 15:00 48 04/01/19 15:00 /48 04/01/19 15:00 48 04/01/19 15:00 /48 04/01/19 14:55 123 32 50 04/01/19 14:45 86/49 04/01/19 14:45 86/49 04/01/19 14:45 86/49 04/01/19 14:45 86/49 04/01/19 14:45 86/49 04/01/19 14:45 86/49 04/01/19 14:45 86/49 04/01/19 14:45 86/49 04/01/19 14:45 125 40 112/59 (76) 100 04/01/19 14:30 125 28 162/66 (98) 98 04/01/19 14:30 Non-Rebreather 15.0 100 04/01/19 14:22 86/49 04/01/19 14:22 86/49 04/01/19 14:22 86/49 04/01/19 14:22 86/49 04/01/19 14:22 86/49 04/01/19 14:22 86/49 04/01/19 14:22 86/49 04/01/19 14:22 86/49 04/01/19 14:15 105 34 114/64 (81) 99 04/01/19 14:15 162/04/01/19 14:15 162/04/01/19 14:15 162/04/01/19 14:15 162/66 04/01/19 14:15 162/04/01/19 14:15 162/66 04/01/19 14:15 162/66 04/01/19 14:15 162/66 04/01/19 14:00 114/64 04/01/19 14:00 114/64 04/01/19 14:00 114/64 04/01/19 14:00 114/64 04/01/19 14:00 114/64 04/01/19 14:00 114/64 04/01/19 14:00 114/64 04/01/19 14:00 114/64 04/01/19 14:00 114/64 04/01/19 14:00 108 32 110/63 (79) 99 04/01/19 13:59 108 136/66 04/01/19 13:45 110/63 04/01/19 13:45 110/63 04/01/19 13:45 110/63 04/01/19 13:45 110/63 04/01/19 13:45 110/63 04/01/19 13:45 110/63 04/01/19 13:45 110/63 04/01/19 13:45 110/63 04/01/19 13:30 102 18 173/79 (110) 96 04/01/19 13:30 119/105 04/01/19 13:30 119/105 04/01/19 13:30 119/105 04/01/19 13:30 119/105 04/01/19 13:30 119/105 04/01/19 13:30 119/105 04/01/19 13:30 119/105 04/01/19 13:30 119/105 04/01/19 13:15 101 31 149/80 (103) 99 04/01/19 13:14 108/49 04/01/19 13:00 108/49 04/01/19 13:00 108/49 04/01/19 13:00 108/49 04/01/19 13:00 108/49 04/01/19 13:00 108/49 04/01/19 13:00 108/49 04/01/19 13:00 108/49 04/01/19 13:00 108/49 04/01/19 13:00 101 28 108/49 (68) 93 04/01/19 12:45 110/57 04/01/19 12:45 110/57 04/01/19 12:45 110/57 04/01/19 12:45 110/57 04/01/19 12:45 110/57 04/01/19 12:45 110/57 04/01/19 12:45 110/57 04/01/19 12:45 110/57 04/01/19 12:45 101 33 110/57 (74) 98 04/01/19 12:35 105 34 50 04/01/19 12:30 153/59 04/01/19 12:30 153/59 04/01/19 12:30 153/59 04/01/19 12:30 153/59 04/01/19 12:30 153/59 04/01/19 12:30 153/59 04/01/19 12:30 153/59 04/01/19 12:30 153/59 04/01/19 12:30 120 27 153/59 (90) 99 04/01/19 12:15 120 31 117/61 (79) 97 04/01/19 12:15 117/61 04/01/19 12:15 117/61 04/01/19 12:15 117/61 04/01/19 12:15 117/61 04/01/19 12:15 117/61 04/01/19 12:15 117/61 04/01/19 12:15 117/61 04/01/19 12:15 117/61 04/01/19 12:00 134/85 04/01/19 12:00 134/85 04/01/19 12:00 134/85 04/01/19 12:00 134/85 04/01/19 12:00 134/85 04/01/19 12:00 134/85 04/01/19 12:00 134/85 04/01/19 12:00 134/85 04/01/19 12:00 134/85 04/01/19 12:00 98.8 106 26 134/85 (101) 98 04/01/19 12:00 96 04/01/19 12:00 Endotracheal Tube 04/01/19 11:45 117/55 04/01/19 11:45 117/55 04/01/19 11:45 117/55 04/01/19 11:45 117/55 04/01/19 11:45 117/55 04/01/19 11:45 117/55 04/01/19 11:45 117/55 04/01/19 11:45 117/55 04/01/19 11:45 99 26 117/55 (75) 96 04/01/19 11:30 96 23 94/52 (66) 98 04/01/19 11:30 60/43 04/01/19 11:15 108 25 106/83 (91) 97 04/01/19 11:15 106/83 04/01/19 11:15 106/83 04/01/19 11:15 106/83 04/01/19 11:15 106/83 04/01/19 11:15 106/83 04/01/19 11:15 106/83 04/01/19 11:15 106/83 04/01/19 11:15 106/83 04/01/19 11:00 103/45 04/01/19 11:00 103/45 04/01/19 11:00 103/45 04/01/19 11:00 103/45 04/01/19 11:00 103/45 04/01/19 11:00 103/45 04/01/19 11:00 103/45 04/01/19 11:00 103/45 04/01/19 11:00 103/45 04/01/19 11:00 120 30 103/45 (64) 98 04/01/19 10:45 120 24 105/45 (65) 98 04/01/19 10:45 105/45 04/01/19 10:45 105/45 04/01/19 10:45 105/45 04/01/19 10:45 105/45 04/01/19 10:45 105/45 04/01/19 10:45 105/45 04/01/19 10:45 105/45 04/01/19 10:45 105/45 04/01/19 10:40 122 34 50 04/01/19 10:30 120 21 120/78 (92) 100 04/01/19 10:30 120/78 04/01/19 10:30 120/78 04/01/19 10:30 120/78 04/01/19 10:30 120/78 04/01/19 10:30 120/78 04/01/19 10:30 120/78 04/01/19 10:30 120/78 04/01/19 10:30 120/78 04/01/19 10:16 119/93 04/01/19 10:16 119/93 04/01/19 10:16 119/93 04/01/19 10:16 119/93 04/01/19 10:16 119/93 04/01/19 10:16 119/93 04/01/19 10:16 119/93 04/01/19 10:16 119/93 04/01/19 10:15 120 22 119/93 (102) 99 04/01/19 10:00 86/57 04/01/19 10:00 86/57 04/01/19 10:00 86/57 04/01/19 10:00 86/57 04/01/19 10:00 86/57 04/01/19 10:00 86/57 04/01/19 10:00 86/57 04/01/19 10:00 86/57 04/01/19 10:00 86/57 04/01/19 10:00 119 33 86/57 (67) 99 04/01/19 09:45 116 28 93/55 (68) 99 04/01/19 09:41 93/55 04/01/19 09:41 93/55 04/01/19 09:41 93/55 04/01/19 09:41 93/55 04/01/19 09:41 93/55 04/01/19 09:41 93/55 04/01/19 09:41 93/55 04/01/19 09:41 93/55 04/01/19 09:30 116 34 84/58 (67) 99 04/01/19 09:30 84/58 04/01/19 09:30 84/58 04/01/19 09:30 84/58 04/01/19 09:30 84/58 04/01/19 09:30 84/58 04/01/19 09:30 84/58 04/01/19 09:30 84/58 04/01/19 09:30 84/58 04/01/19 09:15 96/49 04/01/19 09:15 96/49 04/01/19 09:15 96/49 04/01/19 09:15 96/49 04/01/19 09:15 96/49 04/01/19 09:15 96/49 04/01/19 09:15 96/49 04/01/19 09:15 96/49 04/01/19 09:15 98.3 117 29 96/49 (65) 71 04/01/19 09:01 119 38 50 04/01/19 09:00 154/128 04/01/19 09:00 154/128 04/01/19 09:00 154/128 04/01/19 09:00 154/128 04/01/19 09:00 154/128 04/01/19 09:00 154/128 04/01/19 09:00 154/128 04/01/19 09:00 154/128 04/01/19 09:00 154/128 04/01/19 09:00 119 30 154/128 (137) 99 04/01/19 08:45 121 28 141/61 (87) 96 04/01/19 08:45 141/61 04/01/19 08:45 141/61 04/01/19 08:45 141/61 04/01/19 08:45 141/61 04/01/19 08:45 141/61 04/01/19 08:45 141/61 04/01/19 08:45 141/61 04/01/19 08:45 141/61 04/01/19 08:30 113/59 04/01/19 08:30 113/59 04/01/19 08:30 113/59 04/01/19 08:30 113/59 04/01/19 08:30 113/59 04/01/19 08:30 113/59 04/01/19 08:30 113/59 04/01/19 08:30 113/59 04/01/19 08:30 117 34 113/59 (77) 99 04/01/19 08:15 117 35 122/78 (93) 97 04/01/19 08:15 122/78 04/01/19 08:15 122/78 04/01/19 08:15 122/78 04/01/19 08:15 122/78 04/01/19 08:15 122/78 04/01/19 08:15 122/78 04/01/19 08:15 122/78 04/01/19 08:15 122/78 Labs: Labs Test 03/30/19 08:35 03/31/19 04:38 03/31/19 05:55 03/31/19 18:50 Hemoglobin A1c 7.4 % (4.3-6.0) Arterial Blood pH 7.410 (7.350-7.450) 7.150 (7.350-7.450) Arterial Blood Partial Pressure CO2 17.6 mmHg (35.0-45.0) 31.2 mmHg (35.0-45.0) Arterial Blood Partial Pressure O2 73.7 mmHg (75.0-100.0) 56.3 mmHg (75.0-100.0) Arterial Blood HCO3 10.9 mmol/L (22.0-26.0) 10.6 mmol/L (22.0-26.0) Arterial Blood Oxygen Saturation 94.4 % (95-100) 82.7 % (95-100) Arterial Blood Base Excess -11.1 (-2-2) -17.0 (-2-2) [place] Test Positive Positive White Blood Count 4.3 K/UL (4.8-10.8) Red Blood Count 4.36 M/UL (4.70-6.10) Hemoglobin 12.9 G/DL (14.2-18.0) Hematocrit 38.6 % (42.0-52.0) Mean Corpuscular Volume 88 FL (80-99) Mean Corpuscular Hemoglobin 29.5 PG (27.0-31.0) Mean Corpuscular Hemoglobin Concent 33.3 G/DL (32.0-36.0) Red Cell Distribution Width 12.3 % (11.6-14.8) Platelet Count 76 K/UL (150-450) Mean Platelet Volume 8.8 FL (6.5-10.1) Neutrophils (%) (Auto) % (45.0-75.0) Lymphocytes (%) (Auto) % (20.0-45.0) Monocytes (%) (Auto) % (1.0-10.0) Eosinophils (%) (Auto) % (0.0-3.0) Basophils (%) (Auto) % (0.0-2.0) Differential Total Cells Counted 100 Neutrophils % (Manual) 90 % (45-75) Lymphocytes % (Manual) 9 % (20-45) Monocytes % (Manual) 1 % (1-10) Eosinophils % (Manual) 0 % (0-3) Basophils % (Manual) 0 % (0-2) Band Neutrophils 0 % (0-8) Platelet Estimate Decreased Platelet Morphology Normal Red Blood Cell Morphology Normal Sodium Level 142 MMOL/L (136-145) Potassium Level 4.2 MMOL/L (3.5-5.1) Chloride Level 110 MMOL/L (98-107) Carbon Dioxide Level 16 MMOL/L (21-32) Anion Gap 16 mmol/L (5-15) Blood Urea Nitrogen 44 mg/dL (7-18) Creatinine 2.4 MG/DL (0.55-1.30) Estimat Glomerular Filtration Rate 33.2 mL/min (>60) Glucose Level 153 MG/DL (74-106) Calcium Level 9.4 MG/DL (8.5-10.1) Ammonia 13 umol/L (11-32) Random Vancomycin Level 9.9 ug/mL Test 03/31/19 20:30 03/31/19 22:00 03/31/19 22:14 03/31/19 22:30 Arterial Blood pH 7.056 (7.350-7.450) 6.991 (7.350-7.450) Arterial Blood Partial Pressure CO2 42.9 mmHg (35.0-45.0) 45.0 mmHg (35.0-45.0) Arterial Blood Partial Pressure O2 89.5 mmHg (75.0-100.0) 89.3 mmHg (75.0-100.0) Arterial Blood HCO3 11.8 mmol/L (22.0-26.0) 10.6 mmol/L (22.0-26.0) Arterial Blood Oxygen Saturation 93.8 % (95-100) 92.8 % (95-100) Arterial Blood Base Excess -18.1 (-2-2) -20.3 (-2-2) [place] Test Positive Positive White Blood Count 27.0 K/UL (4.8-10.8) Red Blood Count 4.06 M/UL (4.70-6.10) Hemoglobin 12.1 G/DL (14.2-18.0) Hematocrit 37.6 % (42.0-52.0) Mean Corpuscular Volume 93 FL (80-99) Mean Corpuscular Hemoglobin 29.9 PG (27.0-31.0) Mean Corpuscular Hemoglobin Concent 32.3 G/DL (32.0-36.0) Red Cell Distribution Width 13.5 % (11.6-14.8) Platelet Count 138 K/UL (150-450) Mean Platelet Volume 8.5 FL (6.5-10.1) Neutrophils (%) (Auto) % (45.0-75.0) Lymphocytes (%) (Auto) % (20.0-45.0) Monocytes (%) (Auto) % (1.0-10.0) Eosinophils (%) (Auto) % (0.0-3.0) Basophils (%) (Auto) % (0.0-2.0) Differential Total Cells Counted 100 Neutrophils % (Manual) 70 % (45-75) Lymphocytes % (Manual) 3 % (20-45) Monocytes % (Manual) 5 % (1-10) Eosinophils % (Manual) 0 % (0-3) Basophils % (Manual) 0 % (0-2) Band Neutrophils 22 % (0-8) Platelet Estimate Decreased Platelet Morphology Normal Anisocytosis 1+ Sodium Level 139 MMOL/L (136-145) Potassium Level 6.6 MMOL/L (3.5-5.1) Chloride Level 107 MMOL/L (98-107) Carbon Dioxide Level 18 MMOL/L (21-32) Anion Gap 14 mmol/L (5-15) Blood Urea Nitrogen 48 mg/dL (7-18) Creatinine 3.3 MG/DL (0.55-1.30) Estimat Glomerular Filtration Rate 23.0 mL/min (>60) Glucose Level 336 MG/DL (74-106) Lactic Acid Level 7.60 mmol/L (0.4-2.0) Calcium Level 8.3 MG/DL (8.5-10.1) Urine Color Brown Urine Appearance Slightly cloudy Urine pH 5 (4.5-8.0) Urine Specific [place] 1.020 (1.005-1.035) Urine Protein 3+ (NEGATIVE) Urine Glucose (UA) 2+ (NEGATIVE) Urine Ketones 1+ (NEGATIVE) Urine Blood 4+ (NEGATIVE) Urine Nitrite Negative (NEGATIVE) Urine Bilirubin Negative (NEGATIVE) Urine Urobilinogen 1 MG/DL (0.0-1.0) Urine Leukocyte Esterase 1+ (NEGATIVE) Urine RBC 5-10 /HPF (0 - 0) Urine WBC 2-4 /HPF (0 - 0) Urine Squamous Epithelial Cells Occasional /LPF Urine Amorphous Sediment Few /LPF (NONE) Urine Bacteria Many /HPF (NONE) Test 04/01/19 01:03 04/01/19 04:31 04/01/19 06:36 04/01/19 10:45 Arterial Blood pH 7.152 (7.350-7.450) 7.210 (7.350-7.450) Arterial Blood Partial Pressure CO2 37.1 mmHg (35.0-45.0) 40.6 mmHg (35.0-45.0) Arterial Blood Partial Pressure O2 94.3 mmHg (75.0-100.0) 273.7 mmHg (75.0-100.0) Arterial Blood HCO3 12.7 mmol/L (22.0-26.0) 15.9 mmol/L (22.0-26.0) Arterial Blood Oxygen Saturation 96.4 % (95-100) 99.0 % (95-100) Arterial Blood Base Excess -15.2 (-2-2) -11.4 (-2-2) [place] Test Positive Positive White Blood Count 28.6 K/UL (4.8-10.8) Red Blood Count 4.02 M/UL (4.70-6.10) Hemoglobin 12.0 G/DL (14.2-18.0) Hematocrit 36.4 % (42.0-52.0) Mean Corpuscular Volume 91 FL (80-99) Mean Corpuscular Hemoglobin 29.8 PG (27.0-31.0) Mean Corpuscular Hemoglobin Concent 32.9 G/DL (32.0-36.0) Red Cell Distribution Width 13.5 % (11.6-14.8) Platelet Count 99 K/UL (150-450) Mean Platelet Volume 8.4 FL (6.5-10.1) Neutrophils (%) (Auto) % (45.0-75.0) Lymphocytes (%) (Auto) % (20.0-45.0) Monocytes (%) (Auto) % (1.0-10.0) Eosinophils (%) (Auto) % (0.0-3.0) Basophils (%) (Auto) % (0.0-2.0) Differential Total Cells Counted 100 Neutrophils % (Manual) 70 % (45-75) Lymphocytes % (Manual) 10 % (20-45) Monocytes % (Manual) 4 % (1-10) Eosinophils % (Manual) 0 % (0-3) Basophils % (Manual) 0 % (0-2) Band Neutrophils 16 % (0-8) Platelet Estimate Decreased Platelet Morphology Normal Red Blood Cell Morphology Normal Sodium Level 145 MMOL/L (136-145) Potassium Level 5.4 MMOL/L (3.5-5.1) 5.1 MMOL/L (3.5-5.1) Chloride Level 107 MMOL/L (98-107) Carbon Dioxide Level 17 MMOL/L (21-32) Anion Gap 21 mmol/L (5-15) Blood Urea Nitrogen 50 mg/dL (7-18) Creatinine 3.3 MG/DL (0.55-1.30) Estimat Glomerular Filtration Rate 23.0 mL/min (>60) Glucose Level 198 MG/DL (74-106) Lactic Acid Level 10.00 mmol/L (0.4-2.0) 9.40 mmol/L (0.66-2.22) Calcium Level 8.8 MG/DL (8.5-10.1) Ammonia < 10 umol/L (11-32) Triglycerides Level 148 MG/DL (30-150) Test 04/01/19 12:05 04/01/19 15:30 04/01/19 17:57 04/02/19 00:34 Arterial Blood pH 7.199 (7.350-7.450) 7.305 (7.350-7.450) Arterial Blood Partial Pressure CO2 43.0 mmHg (35.0-45.0) 30.8 mmHg (35.0-45.0) Arterial Blood Partial Pressure O2 90.3 mmHg (75.0-100.0) 113.8 mmHg (75.0-100.0) Arterial Blood HCO3 16.4 mmol/L (22.0-26.0) 15.0 mmol/L (22.0-26.0) Arterial Blood Oxygen Saturation 95.4 % (95-100) 97.6 % (95-100) Arterial Blood Base Excess -11.1 (-2-2) -10.2 (-2-2) [place] Test Positive Positive Lactic Acid Level 12.10 mmol/L (0.4-2.0) 13.60 mmol/L (0.4-2.0) Test 04/02/19 04:38 White Blood Count 15.5 K/UL (4.8-10.8) Red Blood Count 3.78 M/UL (4.70-6.10) Hemoglobin 11.9 G/DL (14.2-18.0) Hematocrit 34.1 % (42.0-52.0) Mean Corpuscular Volume 90 FL (80-99) Mean Corpuscular Hemoglobin 31.5 PG (27.0-31.0) Mean Corpuscular Hemoglobin Concent 34.9 G/DL (32.0-36.0) Red Cell Distribution Width 13.5 % (11.6-14.8) Platelet Count 91 K/UL (150-450) Mean Platelet Volume 8.1 FL (6.5-10.1) Neutrophils (%) (Auto) % (45.0-75.0) Lymphocytes (%) (Auto) % (20.0-45.0) Monocytes (%) (Auto) % (1.0-10.0) Eosinophils (%) (Auto) % (0.0-3.0) Basophils (%) (Auto) % (0.0-2.0) Prothrombin Time 30.6 SEC (9.30-11.50) Prothromb Time International Ratio 3.1 (0.9-1.1) Activated Partial Thromboplast Time 34 SEC (23-33) Sodium Level 151 MMOL/L (136-145) Potassium Level 4.9 MMOL/L (3.5-5.1) Chloride Level 111 MMOL/L (98-107) Carbon Dioxide Level 15 MMOL/L (21-32) Anion Gap 25 mmol/L (5-15) Blood Urea Nitrogen 59 mg/dL (7-18) Creatinine 3.5 MG/DL (0.55-1.30) Estimat Glomerular Filtration Rate 21.5 mL/min (>60) Glucose Level 100 MG/DL (74-106) Lactic Acid Level 14.10 mmol/L (0.66-2.22) Calcium Level 8.1 MG/DL (8.5-10.1) Total Bilirubin 3.5 MG/DL (0.2-1.0) Direct Bilirubin 1.9 MG/DL (0.0-0.3) Aspartate Amino Transf (AST/SGOT) 2617 U/L (15-37) Alanine Aminotransferase (ALT/SGPT) 1522 U/L (12-78) Alkaline Phosphatase 357 U/L (46-116) C-Reactive Protein, Quantitative 30.0 mg/dL (0.00-0.90) Total Protein 6.4 G/DL (6.4-8.2) Albumin 2.0 G/DL (3.4-5.0) Globulin 4.4 g/dL Albumin/Globulin Ratio 0.5 (1.0-2.7) Triglycerides Level 508 MG/DL (30-150) Amylase Level 62 U/L (25-115) Lipase 508 U/L (73-393) Objective: WDWN on vent reduced breath sounds bilaterally without rhonchi or wheeze [id number] tachy without MRG NABS nontender no HSM no CC edema nonfocal sedated Micro: Microbiology Date/Time Source Procedure Growth Status 03/31/19 22:31 Blood Blood Culture - Preliminary NO GROWTH AFTER 24 HOURS Resulted 03/31/19 22:14 Blood Blood Culture - Preliminary NO GROWTH AFTER 24 HOURS Resulted Accucheck: 79 Amarjit Chavarira MD Apr 02, 2019 08:02
[2019-04-02] MEDS: Pantoprazole Inj IVP SCH (08:04)
[2019-04-02] MEDS: Lactulose 20gm/30ml UDC NG SCH ×3 (08:04→17:47)
--- NOTE | 2019-04-02 08:20 | NUR ---
NURSE NOTES: Patient seen by Dr. Walters. MD made aware of ABG result. IVF changed per MD.
--- NOTE | 2019-04-02 08:22 | Nephrology Progress Note ---
Assessment/Plan Assessment/Plan: A/P 1. MORAIMA. Multifact ATN - hypotension/sepsis/vol depletion. Cr at 3.5. Maintain MAP >65 ,mmHg to ensure adequate renal perfusion - DCed ARB - Monitor aminoglycoside level carefully in light of severe ATN 2. Sepsis- Mgmt per PCP/ID - IV pressors and ABx+IVFs. 3. Hyperkalemia- due to RI - off ARB - resolved 4. Met Acidosis- due to hypoperfusion/elevated LA - adjusted IVFs to 150 meq of sodium bicarb Subjective Date patient seen: Apr 02, 2019 Time patient seen: 08:20 ROS Limited/Unobtainable: Yes Allergies: Coded Allergies: PENICILLINS (Verified Allergy, Unknown, 03/29/19) Subjective Patient awake agitated on vent Objective Last 24 Hour Vital Signs Date Time Temp Pulse Resp B/P (MAP) Pulse Ox O2 Delivery O2 Flow Rate FiO2 04/02/19 08:04 34 96/47 Mechanical Ventilator 40 04/02/19 07:30 106 34 105/47 (66) 100 04/02/19 07:15 118 30 101/49 (66) 100 04/02/19 07:04 105 34 100 Mechanical Ventilator 40 87 32 40 04/02/19 07:00 83/42 04/02/19 07:00 32 83/42 Endotracheal Tube 40 04/02/19 07:00 88 96/47 04/02/19 07:00 87 24 83/46 (58) 100 04/02/19 06:45 92 32 96/47 (63) 100 04/02/19 06:45 83/46 04/02/19 06:30 99 33 95/47 (63) 100 04/02/19 06:15 98 29 95/46 (62) 100 04/02/19 06:00 95/46 04/02/19 06:00 32 95/46 Endotracheal Tube 40 04/02/19 06:00 100 100/45 04/02/19 06:00 97 34 100/45 (63) 100 04/02/19 05:45 100 33 96/48 (64) 100 04/02/19 05:30 104 36 102/51 (68) 100 04/02/19 05:17 115 35 40 04/02/19 05:15 99 33 112/51 (71) 100 04/02/19 05:00 109/52 04/02/19 05:00 33 109/52 Mechanical Ventilator 40 04/02/19 04:45 97 36 99/49 (66) 99 04/02/19 04:33 32 102/47 Endotracheal Tube 40 04/02/19 04:30 97 35 102/47 (65) 100 04/02/19 04:30 36 102/47 Endotracheal Tube 40 04/02/19 04:15 99 37 107/51 (69) 100 04/02/19 04:15 36 102/47 Endotracheal Tube 40 04/02/19 04:00 Endotracheal Tube 04/02/19 04:00 107/51 04/02/19 04:00 37 107/51 Endotracheal Tube 40 04/02/19 04:00 98.3 101 37 110/44 (66) 99 04/02/19 04:00 95 04/02/19 03:45 36 110/44 Endotracheal Tube 40 04/02/19 03:45 106 37 130/54 (79) 100 04/02/19 03:41 101/83 04/02/19 03:40 101/83 04/02/19 03:30 100 31 101/83 (89) 100 04/02/19 03:30 33 101/83 Endotracheal Tube 40 04/02/19 03:18 100 32 100 Mechanical Ventilator 40 04/02/19 03:15 92 32 95/43 (60) 100 04/02/19 03:12 40 04/02/19 03:08 94 32 100 Mechanical Ventilator 40 94 32 40 04/02/19 03:00 94 32 100/46 (64) 100 04/02/19 03:00 100/46 04/02/19 03:00 32 100/46 Endotracheal Tube 50 04/02/19 02:45 96 32 99/45 (63) 100 04/02/19 02:31 94 31 93/41 (58) 100 04/02/19 02:30 95 32 85/43 (57) 100 04/02/19 02:15 97 33 107/49 (68) 100 04/02/19 02:00 107/49 04/02/19 02:00 33 107/49 Endotracheal Tube 50 04/02/19 02:00 99 34 99/49 (66) 100 04/02/19 01:45 97 32 105/49 (67) 100 10/20/19 01:30 98 33 50 04/02/19 01:30 98 33 98/47 (64) 100 04/02/19 01:20 103 122/107 04/02/19 01:19 30 122/107 Endotracheal Tube 50 04/02/19 01:18 33 119/44 Endotracheal Tube 50 04/02/19 01:15 102 32 119/44 (69) 100 04/02/19 01:00 97 33 99/47 (64) 100 04/02/19 01:00 122/107 04/02/19 00:45 98 34 93/49 (64) 100 04/02/19 00:30 100 34 102/48 (66) 98 04/02/19 00:30 34 93/49 Endotracheal Tube 50 04/02/19 00:15 34 102/48 Endotracheal Tube 50 04/02/19 00:15 100 35 100/49 (66) 100 04/02/19 00:00 50 04/02/19 00:00 101 04/02/19 00:00 Endotracheal Tube 04/02/19 00:00 100/49 04/02/19 00:00 35 100/49 Endotracheal Tube 50 04/02/19 00:00 99.3 102 35 106/53 (70) 100 04/01/19 23:45 35 106/53 Endotracheal Tube 50 04/01/19 23:45 105 35 109/45 (66) 100 04/01/19 23:30 109 28 121/58 (79) 98 04/01/19 23:30 30 121/58 Endotracheal Tube 50 04/01/19 23:16 108 33 99 Mechanical Ventilator 50 04/01/19 23:15 97 32 93/49 (64) 100 04/01/19 23:06 103 35 99 Mechanical Ventilator 50 103 35 50 04/01/19 23:00 107/52 04/01/19 23:00 30 107/52 Endotracheal Tube 50 04/01/19 23:00 103 35 107/52 (70) 100 04/01/19 22:45 105 31 105/53 (70) 04/01/19 22:30 105 34 113/49 (70) 100 04/01/19 22:25 99.5 04/01/19 22:15 107 37 111/46 (67) 99 04/01/19 22:00 110 25 125/76 (92) 99 04/01/19 22:00 125/76 04/01/19 22:00 30 125/76 Endotracheal Tube 50 04/01/19 22:00 110 121/60 04/01/19 21:45 99.6 108 32 121/60 (80) 99 04/01/19 21:30 109 30 110/57 (74) 99 04/01/19 21:15 29 121/60 Endotracheal Tube 50 04/01/19 21:15 100.4 104 33 104/49 (67) 100 04/01/19 21:10 107 34 50 04/01/19 21:03 30 105/65 Endotracheal Tube 50 04/01/19 21:00 104/49 04/01/19 21:00 32 104/49 Mechanical Ventilator 50 04/01/19 21:00 106 36 105/65 (78) 100 04/01/19 20:45 36 105/65 Endotracheal Tube 50 04/01/19 20:45 108 37 105/57 (73) 99 04/01/19 20:30 109 27 111/54 (73) 99 04/01/19 20:30 33 115/54 Mechanical Ventilator 50 04/01/19 20:15 111 35 113/46 (68) 99 04/01/19 20:15 30 115/70 Endotracheal Tube 50 04/01/19 20:00 98.8 110 26 118/84 (95) 99 04/01/19 20:00 Endotracheal Tube 04/01/19 20:00 105 04/01/19 20:00 50 04/01/19 20:00 118/84 04/01/19 20:00 29 118/84 Endotracheal Tube 50 04/01/19 19:51 100 29 102/71 (81) 100 04/01/19 19:48 99 28 88/45 (59) 100 04/01/19 19:45 97 32 87/43 (58) 100 04/01/19 19:42 98 115/53 04/01/19 19:37 98 34 100 Mechanical Ventilator 50 04/01/19 19:30 106 35 115/53 (73) 100 04/01/19 19:27 106 36 100 Mechanical Ventilator 50 106 36 50 04/01/19 19:15 105 36 116/49 (71) 100 04/01/19 19:00 107 34 122/64 (83) 99 04/01/19 19:00 122/62 04/01/19 19:00 35 122/62 Endotracheal Tube 50 04/01/19 18:55 122/62 04/01/19 18:55 122/62 04/01/19 18:55 122/62 04/01/19 18:55 122/62 04/01/19 18:55 122/62 04/01/19 18:55 122/62 04/01/19 18:55 122/62 04/01/19 18:55 122/62 04/01/19 18:55 32 122/62 Mechanical Ventilator 04/01/19 18:55 32 122/62 Mechanical Ventilator 04/01/19 18:55 32 122/62 Mechanical Ventilator 04/01/19 18:55 32 122/62 Mechanical Ventilator 04/01/19 18:55 32 122/62 Mechanical Ventilator 04/01/19 18:55 32 122/62 Mechanical Ventilator 04/01/19 18:55 32 122/62 Mechanical Ventilator 04/01/19 18:55 32 122/62 Mechanical Ventilator 04/01/19 18:45 107 34 122/64 (83) 99 04/01/19 18:45 122/64 04/01/19 18:45 122/64 04/01/19 18:45 122/64 04/01/19 18:45 122/64 04/01/19 18:45 122/64 04/01/19 18:45 122/64 04/01/19 18:45 122/64 04/01/19 18:45 122/64 04/01/19 18:45 32 122/64 Mechanical Ventilator 04/01/19 18:45 32 122/64 Mechanical Ventilator 04/01/19 18:45 32 122/64 Mechanical Ventilator 04/01/19 18:45 32 122/64 Mechanical Ventilator 04/01/19 18:45 32 122/64 Mechanical Ventilator 04/01/19 18:45 32 122/64 Mechanical Ventilator 04/01/19 18:45 32 122/64 Mechanical Ventilator 04/01/19 18:45 32 122/64 Mechanical Ventilator 04/01/19 18:30 111/58 04/01/19 18:30 111/58 04/01/19 18:30 111/58 04/01/19 18:30 111/58 04/01/19 18:30 111/58 04/01/19 18:30 111/58 04/01/19 18:30 111/58 04/01/ 18:30 111/58 04/01/19 18:30 32 111/58 Mechanical Ventilator 04/01/19 18:30 32 111/58 Mechanical Ventilator 04/01/19 18:30 32 111/58 Mechanical Ventilator 04/01/ 18:30 32 111/58 Mechanical Ventilator 04/01/19 18:30 32 111/58 Mechanical Ventilator 04/01/19 18:30 32 111/58 Mechanical Ventilator 04/01/19 18:30 32 111/58 Mechanical Ventilator 04/01/19 18:30 32 111/58 Mechanical Ventilator 04/01/19 18:30 105 32 111/58 (75) 99 04/01/19 18:15 111/58 04/01/19 18:15 111/58 04/01/19 18:15 111/58 04/01/19 18:15 111/58 04/01/19 18:15 111/58 04/01/19 18:15 111/58 04/01/19 18:15 111/58 04/01/19 18:15 111/58 04/01/19 18:15 32 122/64 Mechanical Ventilator 04/01/19 18:15 32 122/64 Mechanical Ventilator 04/01/19 18:15 32 122/64 Mechanical Ventilator 04/01/19 18:15 32 122/64 Mechanical Ventilator 04/01/19 18:15 32 122/64 Mechanical Ventilator 04/01/19 18:15 32 122/64 Mechanical Ventilator 04/01/19 18:15 32 122/64 Mechanical Ventilator 04/01/19 18:15 32 122/64 Mechanical Ventilator 04/01/19 18:15 104 31 100/67 (78) 99 19 18:06 79/44 04/01/19 18:03 102 31 79/44 (56) 100 04/01/ 18:00 102 29 79/44 (56) 99 04/01/19 18:00 32 111/58 Mechanical Ventilator 04/01/19 18:00 32 111/58 Mechanical Ventilator 04/01/19 18:00 32 111/58 Mechanical Ventilator 04/01/19 18:00 32 111/58 Mechanical Ventilator 04/01/ 18:00 32 111/58 Mechanical Ventilator 04/01/ 18:00 32 111/58 Mechanical Ventilator 04/01/19 18:00 32 111/58 Mechanical Ventilator 04/01/19 18:00 32 111/58 Mechanical Ventilator 04/01/19 17:45 32 79/44 Mechanical Ventilator 04/01/19 17:45 32 79/44 Mechanical Ventilator 04/01/19 17:45 32 79/44 Mechanical Ventilator 04/01/19 17:45 32 79/44 Mechanical Ventilator 04/01/19 17:45 32 79/44 Mechanical Ventilator 04/01/19 17:45 32 79/44 Mechanical Ventilator 04/01/19 17:45 32 79/44 Mechanical Ventilator 04/01/19 17:45 32 79/44 Mechanical Ventilator 04/01/19 17:45 98/51 04/01/19 17:45 98/51 04/01/19 17:45 104 33 98/51 (67) 99 04/01/19 17:30 125 32 97/72 (80) 99 04/01/19 17:30 32 98/51 Mechanical Ventilator 04/01/19 17:30 32 98/51 Mechanical Ventilator 04/01/19 17:30 32 98/51 Mechanical Ventilator 04/01/19 17:30 32 98/51 Mechanical Ventilator 04/01/19 17:30 32 98/51 Mechanical Ventilator 04/01/19 17:30 32 98/51 Mechanical Ventilator 04/01/19 17:30 32 98/51 Mechanical Ventilator 04/01/19 17:30 32 98/51 Mechanical Ventilator 04/01/19 17:30 98/51 04/01/19 17:30 98/51 04/01/19 17:30 98/51 04/01/19 17:30 98/51 04/01/19 17:30 98/51 04/01/19 17:30 98/51 04/01/19 17:30 98/51 04/01/19 17:30 98/51 04/01/19 17:15 32 97/72 Mechanical Ventilator 04/01/19 17:15 32 97/72 Mechanical Ventilator 04/01/19 17:15 32 97/72 Mechanical Ventilator 04/01/19 17:15 32 97/72 Mechanical Ventilator 04/01/19 17:15 32 97/72 Mechanical Ventilator 04/01/19 17:15 32 97/72 Mechanical Ventilator 04/01/19 17:15 32 97/72 Mechanical Ventilator 04/01/19 17:15 32 97/72 Mechanical Ventilator 04/01/19 17:15 97/72 04/01/19 17:15 97/72 04/01/19 17:15 97/72 04/01/19 17:15 97/72 04/01/19 17:15 97/72 04/01/19 17:15 97/72 04/01/19 17:15 97/72 04/01/19 17:15 97/72 04/01/19 17:15 127 31 119/53 (75) 99 04/01/19 17:00 32 119/53 Mechanical Ventilator 04/01/19 17:00 32 119/53 Mechanical Ventilator 04/01/19 17:00 32 119/53 Mechanical Ventilator 04/01/19 17:00 32 119/53 Mechanical Ventilator 04/01/19 17:00 32 119/53 Mechanical Ventilator 04/01/19 17:00 32 119/53 Mechanical Ventilator 04/01/19 17:00 32 119/53 Mechanical Ventilator 04/01/19 17:00 32 119/53 Mechanical Ventilator 04/01/19 17:00 119/53 04/01/19 17:00 160/70 04/01/19 17:00 119/53 04/01/19 17:00 119/53 04/01/19 17:00 119/53 04/01/19 17:00 119/53 04/01/19 17:00 119/53 04/01/19 17:00 119/53 04/01/19 17:00 119/53 04/01/19 17:00 127 30 111/60 (77) 99 04/01/19 16:45 32 111/60 Mechanical Ventilator 04/01/19 16:45 32 111/60 Mechanical Ventilator 04/01/19 16:45 32 111/60 Mechanical Ventilator 04/01/19 16:45 32 111/60 Mechanical Ventilator 04/01/19 16:45 32 111/60 Mechanical Ventilator 04/01/19 16:45 32 111/60 Mechanical Ventilator 04/01/19 16:45 32 111/60 Mechanical Ventilator 04/01/19 16:45 32 111/60 Mechanical Ventilator 04/01/19 16:45 94/51 04/01/19 16:45 94/51 04/01/19 16:45 94/51 04/01/19 16:45 94/51 04/01/19 16:45 94/51 04/01/19 16:45 94/51 04/01/19 16:45 94/51 04/01/19 16:45 94/51 04/01/19 16:45 102 31 94/51 (65) 100 04/01/19 16:30 105 30 118/55 (76) 99 04/01/19 16:30 106 33 50 04/01/19 16:30 32 94/51 Mechanical Ventilator 04/01/19 16:30 32 94/51 Mechanical Ventilator 04/01/19 16:30 32 94/51 Mechanical Ventilator 04/01/19 16:30 32 94/51 Mechanical Ventilator 04/01/19 16:30 32 94/51 Mechanical Ventilator 04/01/19 16:30 32 94/51 Mechanical Ventilator 04/01/19 16:30 32 94/51 Mechanical Ventilator 04/01/19 16:30 32 94/51 Mechanical Ventilator 04/01/19 16:30 118/55 04/01/19 16:30 118/55 04/01/19 16:30 118/55 04/01/19 16:30 118/55 04/01/19 16:30 118/55 04/01/19 16:30 118/55 04/01/19 16:30 118/55 04/01/19 16:30 118/55 04/01/19 16:15 105 31 114/56 (75) 99 04/01/19 16:15 32 118/55 Mechanical Ventilator 04/01/19 16:15 32 118/55 Mechanical Ventilator 04/01/19 16:15 32 118/55 Mechanical Ventilator 04/01/19 16:15 32 118/55 Mechanical Ventilator 04/01/19 16:15 32 118/55 Mechanical Ventilator 04/01/19 16:15 32 118/55 Mechanical Ventilator 04/01/19 16:15 32 118/55 Mechanical Ventilator 04/01/19 16:15 32 118/55 Mechanical Ventilator 04/01/19 16:15 118/55 04/01/19 16:15 118/55 04/01/19 16:15 118/55 04/01/19 16:15 118/55 04/01/19 16:15 118/55 04/01/19 16:15 118/55 04/01/19 16:15 118/55 04/01/19 16:15 118/55 04/01/19 16:11 105 32 125/51 (75) 99 04/01/19 16:00 98.6 129 30 154/73 (100) 98 04/01/19 16:00 32 125/51 Mechanical Ventilator 04/01/19 16:00 32 125/51 Mechanical Ventilator 04/01/19 16:00 32 125/51 Mechanical Ventilator 04/01/19 16:00 32 125/51 Mechanical Ventilator 04/01/19 16:00 32 125/51 Mechanical Ventilator 04/01/19 16:00 32 125/51 Mechanical Ventilator 04/01/19 16:00 32 125/51 Mechanical Ventilator 04/01/19 16:00 32 125/51 Mechanical Ventilator 04/01/19 16:00 154/73 04/01/19 16:00 154/73 04/01/19 16:00 154/73 04/01/19 16:00 154/73 04/01/19 16:00 154/73 04/01/19 16:00 154/73 04/01/19 16:00 152/63 04/01/19 16:00 154/73 04/01/19 16:00 154/73 04/01/19 16:00 129 04/01/19 16:00 Endotracheal Tube 04/01/19 15:45 122 32 100/52 (68) 100 04/01/19 15:45 32 154/73 Mechanical Ventilator 04/01/19 15:45 32 154/73 Mechanical Ventilator 04/01/19 15:45 32 154/73 Mechanical Ventilator 04/01/19 15:45 32 154/73 Mechanical Ventilator 04/01/19 15:45 32 154/73 Mechanical Ventilator 04/01/19 15:45 32 154/73 Mechanical Ventilator 04/01/19 15:45 32 154/73 Mechanical Ventilator 04/01/19 15:45 32 154/73 Mechanical Ventilator 04/01/19 15:45 154/73 04/01/19 15:45 154/73 04/01/19 15:45 154/73 04/01/19 15:45 154/73 04/01/19 15:45 154/73 04/01/19 15:45 154/73 04/01/19 15:45 154/73 04/01/19 15:45 154/73 04/01/19 15:30 122 32 102/56 (71) 100 04/01/19 15:30 32 100/52 Mechanical Ventilator 04/01/19 15:30 32 100/52 Mechanical Ventilator 04/01/19 15:30 32 100/52 Mechanical Ventilator 04/01/19 15:30 32 100/52 Mechanical Ventilator 04/01/19 15:30 32 100/52 Mechanical Ventilator 04/01/19 15:30 32 100/52 Mechanical Ventilator 04/01/19 15:30 32 100/52 Mechanical Ventilator 04/01/19 15:30 32 100/52 Mechanical Ventilator 04/01/19 15:30 32 100/52 Mechanical Ventilator 04/01/19 15:30 100/52 04/01/19 15:30 100/52 04/01/19 15:30 100/52 04/01/19 15:30 100/52 04/01/19 15:30 100/52 04/01/19 15:30 100/52 04/01/19 15:30 100/52 04/01/19 15:30 100/52 04/01/19 15:18 32 94/51 Mechanical Ventilator 04/01/19 15:18 32 94/51 Mechanical Ventilator 04/01/19 15:18 32 94/51 Mechanical Ventilator 04/01/19 15:18 32 94/51 Mechanical Ventilator 04/01/19 15:18 32 94/51 Mechanical Ventilator 04/01/19 15:18 32 94/51 Mechanical Ventilator 04/01/19 15:18 32 94/51 Mechanical Ventilator 04/01/19 15:18 32 94/51 Mechanical Ventilator 04/01/19 15:15 122 31 89/48 (62) 99 04/01/19 15:15 32 94/49 Mechanical Ventilator 50 04/01/19 15:15 102/56 04/01/19 15:15 102/56 04/01/19 15:15 102/56 04/01/19 15:15 102/56 04/01/19 15:15 102/56 04/01/19 15:15 102/56 04/01/19 15:15 102/56 04/01/19 15:15 102/56 04/01/19 15:14 122 31 94/49 (64) 100 04/01/19 15:00 122 28 86/49 (61) 99 04/01/19 15:00 87/48 04/01/19 15:00 87/48 04/01/19 15:00 48 04/01/19 15:00 48 04/01/19 15:00 48 04/01/19 15:00 48 04/01/19 15:00 /48 04/01/19 15:00 48 04/01/19 15:00 /48 04/01/19 14:55 123 32 50 04/01/19 14:45 86/49 04/01/19 14:45 86/49 04/01/19 14:45 86/49 04/01/19 14:45 86/49 04/01/19 14:45 86/49 04/01/19 14:45 86/49 04/01/19 14:45 86/49 04/01/19 14:45 86/49 04/01/19 14:45 125 40 112/59 (76) 100 04/01/19 14:30 125 28 162/66 (98) 98 04/01/19 14:30 Non-Rebreather 15.0 100 04/01/19 14:22 86/49 04/01/19 14:22 86/49 04/01/19 14:22 86/49 04/01/19 14:22 86/49 04/01/19 14:22 86/49 04/01/19 14:22 86/49 04/01/19 14:22 86/49 04/01/19 14:22 86/49 04/01/19 14:15 105 34 114/64 (81) 99 04/01/19 14:15 162/04/01/19 14:15 162/04/01/19 14:15 162/66 04/01/19 14:15 162/04/01/19 14:15 162/66 04/01/19 14:15 162/66 04/01/19 14:15 162/66 04/01/19 14:15 162/66 04/01/19 14:00 114/64 04/01/19 14:00 114/64 04/01/19 14:00 114/64 04/01/19 14:00 114/64 04/01/19 14:00 114/64 04/01/19 14:00 114/64 04/01/19 14:00 114/64 04/01/19 14:00 114/64 04/01/19 14:00 114/64 04/01/19 14:00 108 32 110/63 (79) 99 04/01/19 13:59 108 136/66 04/01/19 13:45 110/63 04/01/19 13:45 110/63 04/01/19 13:45 110/63 04/01/19 13:45 110/63 04/01/19 13:45 110/63 04/01/19 13:45 110/63 04/01/19 13:45 110/63 04/01/19 13:45 110/63 04/01/19 13:30 102 18 173/79 (110) 96 04/01/19 13:30 119/105 04/01/19 13:30 119/105 04/01/19 13:30 119/105 04/01/19 13:30 119/105 04/01/19 13:30 119/105 04/01/19 13:30 119/105 04/01/19 13:30 119/105 04/01/19 13:30 119/105 04/01/19 13:15 101 31 149/80 (103) 99 04/01/19 13:14 108/49 04/01/19 13:00 108/49 04/01/19 13:00 108/49 04/01/19 13:00 108/49 04/01/19 13:00 108/49 04/01/19 13:00 108/49 04/01/19 13:00 108/49 04/01/19 13:00 108/49 04/01/19 13:00 108/49 04/01/19 13:00 101 28 108/49 (68) 93 04/01/19 12:45 110/57 04/01/19 12:45 110/57 04/01/19 12:45 110/57 04/01/19 12:45 110/57 04/01/19 12:45 110/57 04/01/19 12:45 110/57 04/01/19 12:45 110/57 04/01/19 12:45 110/57 04/01/19 12:45 101 33 110/57 (74) 98 04/01/19 12:35 105 34 50 04/01/19 12:30 153/59 04/01/19 12:30 153/59 04/01/19 12:30 153/59 04/01/19 12:30 153/59 04/01/19 12:30 153/59 04/01/19 12:30 153/59 04/01/19 12:30 153/59 04/01/19 12:30 153/59 04/01/19 12:30 120 27 153/59 (90) 99 04/01/19 12:15 120 31 117/61 (79) 97 04/01/19 12:15 117/61 04/01/19 12:15 117/61 04/01/19 12:15 117/61 04/01/19 12:15 117/61 04/01/19 12:15 117/61 04/01/19 12:15 117/61 04/01/19 12:15 117/61 04/01/19 12:15 117/61 04/01/19 12:00 134/85 04/01/19 12:00 134/85 04/01/19 12:00 134/85 04/01/19 12:00 134/85 04/01/19 12:00 134/85 04/01/19 12:00 134/85 04/01/19 12:00 134/85 04/01/19 12:00 134/85 04/01/19 12:00 134/85 04/01/19 12:00 98.8 106 26 134/85 (101) 98 04/01/19 12:00 96 04/01/19 12:00 Endotracheal Tube 04/01/19 11:45 117/55 04/01/19 11:45 117/55 04/01/19 11:45 117/55 04/01/19 11:45 117/55 04/01/19 11:45 117/55 04/01/19 11:45 117/55 04/01/19 11:45 117/55 04/01/19 11:45 117/55 04/01/19 11:45 99 26 117/55 (75) 96 04/01/19 11:30 96 23 94/52 (66) 98 04/01/19 11:30 60/43 04/01/19 11:15 108 25 106/83 (91) 97 04/01/19 11:15 106/83 04/01/19 11:15 106/83 04/01/19 11:15 106/83 04/01/19 11:15 106/83 04/01/19 11:15 106/83 04/01/19 11:15 106/83 04/01/19 11:15 106/83 04/01/19 11:15 106/83 04/01/19 11:00 103/45 04/01/19 11:00 103/45 04/01/19 11:00 103/45 04/01/19 11:00 103/45 04/01/19 11:00 103/45 04/01/19 11:00 103/45 04/01/19 11:00 103/45 04/01/19 11:00 103/45 04/01/19 11:00 103/45 04/01/19 11:00 120 30 103/45 (64) 98 04/01/19 10:45 120 24 105/45 (65) 98 04/01/19 10:45 105/45 04/01/19 10:45 105/45 04/01/19 10:45 105/45 04/01/19 10:45 105/45 04/01/19 10:45 105/45 04/01/19 10:45 105/45 04/01/19 10:45 105/45 04/01/19 10:45 105/45 04/01/19 10:40 122 34 50 04/01/19 10:30 120 21 120/78 (92) 100 04/01/19 10:30 120/78 04/01/19 10:30 120/78 04/01/19 10:30 120/78 04/01/19 10:30 120/78 04/01/19 10:30 120/78 04/01/19 10:30 120/78 04/01/19 10:30 120/78 04/01/19 10:30 120/78 04/01/19 10:16 119/93 04/01/19 10:16 119/93 04/01/19 10:16 119/93 04/01/19 10:16 119/93 04/01/19 10:16 119/93 04/01/19 10:16 119/93 04/01/19 10:16 119/93 04/01/19 10:16 119/93 04/01/19 10:15 120 22 119/93 (102) 99 04/01/19 10:00 86/57 04/01/19 10:00 86/57 04/01/19 10:00 86/57 04/01/19 10:00 86/57 04/01/19 10:00 86/57 04/01/19 10:00 86/57 04/01/19 10:00 86/57 04/01/19 10:00 86/57 04/01/19 10:00 86/57 04/01/19 10:00 119 33 86/57 (67) 99 04/01/19 09:45 116 28 93/55 (68) 99 04/01/19 09:41 93/55 04/01/19 09:41 93/55 04/01/19 09:41 93/55 04/01/19 09:41 93/55 04/01/19 09:41 93/55 04/01/19 09:41 93/55 04/01/19 09:41 93/55 04/01/19 09:41 93/55 04/01/19 09:30 116 34 84/58 (67) 99 04/01/19 09:30 84/58 04/01/19 09:30 84/58 04/01/19 09:30 84/58 04/01/19 09:30 84/58 04/01/19 09:30 84/58 04/01/19 09:30 84/58 04/01/19 09:30 84/58 04/01/19 09:30 84/58 04/01/19 09:15 96/49 04/01/19 09:15 96/49 04/01/19 09:15 96/49 04/01/19 09:15 96/49 04/01/19 09:15 96/49 04/01/19 09:15 96/49 04/01/19 09:15 96/49 04/01/19 09:15 96/49 04/01/19 09:15 98.3 117 29 96/49 (65) 71 04/01/19 09:01 119 38 50 04/01/19 09:00 154/128 04/01/19 09:00 154/128 04/01/19 09:00 154/128 04/01/19 09:00 154/128 04/01/19 09:00 154/128 04/01/19 09:00 154/128 04/01/19 09:00 154/128 04/01/19 09:00 154/128 04/01/19 09:00 154/128 04/01/19 09:00 119 30 154/128 (137) 99 04/01/19 08:45 121 28 141/61 (87) 96 04/01/19 08:45 141/61 04/01/19 08:45 141/61 04/01/19 08:45 141/61 04/01/19 08:45 141/61 04/01/19 08:45 141/61 04/01/19 08:45 141/61 04/01/19 08:45 141/61 04/01/19 08:45 141/61 04/01/19 08:30 113/59 04/01/19 08:30 113/59 04/01/19 08:30 113/59 04/01/19 08:30 113/59 04/01/19 08:30 113/59 04/01/19 08:30 113/59 04/01/19 08:30 113/59 04/01/19 08:30 113/59 04/01/19 08:30 117 34 113/59 (77) 99 Intake and Output 04/01/19 04/02/19 19:00 07:00 Intake Total 2343.93 ml 2628.157 ml Output Total 445 ml 175 ml Balance 1898.93 ml 2453.157 ml Free Water 50 ml IV Total 2293.93 ml 2628.157 ml Output Urine Total 445 ml 175 ml # Bowel Movements 2 Laboratory Tests 04/01/19 10:45: Potassium Level 5.1, Lactic Acid Level 9.40H, Triglycerides Level 148 04/01/19 12:05: Arterial Blood pH 7.199*L, Arterial Blood Partial Pressure CO2 43.0, Arterial Blood Partial Pressure O2 90.3, Arterial Blood HCO3 16.4*L, Arterial Blood Oxygen Saturation 95.4, Arterial Blood Base Excess -11.1*L, [place] Test Positive 04/01/19 15:30: Arterial Blood pH 7.305L, Arterial Blood Partial Pressure CO2 30.8L, Arterial Blood Partial Pressure O2 113.8H, Arterial Blood HCO3 15.0*L, Arterial Blood Oxygen Saturation 97.6, Arterial Blood Base Excess -10.2*L, [place] Test Positive 04/01/19 17:57: Lactic Acid Level 12.10H 04/02/19 00:34: Lactic Acid Level 13.60H 04/02/19 04:38: Lactic Acid Level 14.10H, White Blood Count 15.5H, Red Blood Count 3.78L, Hemoglobin 11.9L, Hematocrit 34.1L, Mean Corpuscular Volume 90, Mean Corpuscular Hemoglobin 31.5H, Mean Corpuscular Hemoglobin Concent 34.9, Red Cell Distribution Width 13.5, Platelet Count 91L, Mean Platelet Volume 8.1, Neutrophils (%) (Auto) , Lymphocytes (%) (Auto) , Monocytes (%) (Auto) , Eosinophils (%) (Auto) , Basophils (%) (Auto) , Neutrophils % (Manual) [Pending] , Lymphocytes % (Manual) [Pending], Platelet Estimate [Pending], Platelet Morphology [Pending], Erythrocyte Sedimentation Rate 105H, Prothrombin Time 30.6H, Prothromb Time International Ratio 3.1H, Activated Partial Thromboplast Time 34H, Sodium Level 151H, Potassium Level 4.9, Chloride Level 111H, Carbon Dioxide Level 15L, Anion Gap 25H, Blood Urea Nitrogen 59H, Creatinine 3.5H, Estimat Glomerular Filtration Rate 21.5, Glucose Level 100, Calcium Level 8.1L, Total Bilirubin 3.5H, Direct Bilirubin 1.9H, Aspartate Amino Transf (AST/SGOT) 2617H, Alanine Aminotransferase (ALT/SGPT) 1522H, Alkaline Phosphatase 357H, C- Reactive Protein, Quantitative 30.0H, Total Protein 6.4, Albumin 2.0L, Globulin 4.4, Albumin/Globulin Ratio 0.5L, Triglycerides Level 508H, Amylase Level 62, Lipase 508H 04/02/19 07:41: Arterial Blood pH 7.294L, Arterial Blood Partial Pressure CO2 25.1L, Arterial Blood Partial Pressure O2 99.9, Arterial Blood HCO3 11.9*L, Arterial Blood Oxygen Saturation 96.5, Arterial Blood Base Excess -13.0*L, [place] Test Positive Height (Feet): 5 Height (Inches): 8.00 Weight (Pounds): 226 General Appearance: agitated EENT: normal ENT inspection Neck: normal alignment, supple Cardiovascular: normal rate, regular rhythm Respiratory/Chest: rhonchi - bilaterally Abdomen: non tender, soft Edema: no edema noted Arm (L), no edema noted Arm (R), no edema noted Leg (L), no edema noted Leg (R), no edema noted Pedal (L), no edema noted Pedal (R), no edema noted Generalized Selvin Walters MD Apr 02, 2019 08:22
--- NOTE | 2019-04-02 08:25 | NUR ---
NURSE NOTES: Patient noted with HR 110s-180s after chest xray was taken. Left a message to Dr. Chavarria. Left a message to that triglyceride 508 and patient on propofol. awaiting for call back
--- NOTE | 2019-04-02 09:10 | Diagnostic Imaging Report ---
EXAM: XR Chest, 1 View CLINICAL HISTORY: DYSPNEA TECHNIQUE: Frontal view of the chest. COMPARISON: Chest x-ray, 04 01 19 FINDINGS: Lungs: Worsening right upper lobe airspace opacities. Similar bilateral lower lobe airspace opacities. Pleural space: Probable small right pleural effusion stable. No pneumothorax. Heart: Mild cardiomegaly. Mediastinum: Unremarkable. Bones joints: Unremarkable. Tubes, lines and devices: Stable ET tube and NG tube. IMPRESSION: 1. Stable ET tube and NG tube. 2. Worsening right upper lobe airspace opacities. Similar bilateral lower lobe airspace opacities. 3. Probable small right pleural effusion stable.
[2019-04-02] MEDS ORDERED: Morphine Sulfate 2mg/ml Inj(IV/IM USE ONLY) IVP PRN (09:15)
--- NOTE | 2019-04-02 09:32 | NUR ---
RD ASSESSMENT & RECOMMENDATIONS SEE CARE ACTIVITY FOR COMPLETE ASSESSMENT DAILY ESTIMATED NEEDS: Needs based on Critical care, liver dz 76kg adj 22-28 kcals/kg 7013-1283 total kcals 1.2-2 g protein/kg 91-152 g total protein Fluid per MD NUTRITION DIAGNOSIS: Swallowing difficulty r/t respiratory failure as evidenced by s/p intubation, now febrile, hypotensive, on pressor support, w/ elevated WBC. elev LA, critical ABG levels. CURRENT DIET: NPO PO DIET RECOMMENDATIONS: [employer]GER eval upon extubation ENTERAL NUTRITION RECOMMENDATIONS: Vital AF 1.2 @60ml/hr x24 hrs WHEN STABLE to provide 1440ml, 1728 kcal, 108g pro, 1168ml free H2O - With hemodynamic stability, rec non oral feeds to meet est needs. - Start @low rate 20ml/hr x6 hrs, advance as tolerated to goal - Flush per MD, HOB over 30 degrees With continued pressor support, elev LA, and hemodynamic instability, rec trophic feeds to maintain gut integrity: rec Vital 1.2 @5-10ml/hr for 24 hrs. ADDITIONAL RECOMMENDATIONS: 1. Monitor for stability to feed; TF recs as above -> monitor renal fxn and need for renal formula (K 4.9) 2. Maintain calibrated bed scale wts 3. recheck triglycerides prior to resuming propofol Prior rate of 50mcg was providing >800 fat kcal 4. Hypoglycemics as needed
[2019-04-02] MEDS: Sodium Bicarbonate 150 ML in D5W 1000ml 1,000 ML IV SCH ×2 (09:57→20:30)
[2019-04-02] MEDS: fentaNYL Citrate 2,500 MCG in NS 200 ML IV SCH ×2 (09:58→21:21)
[2019-04-02] MEDS ORDERED: LORazepam Inj 2mg/ml 1ml IV PRN (10:15)
--- NOTE | 2019-04-02 10:20 | NUR ---
NURSE NOTES: Propofol was discontinued and fentanyl gtt was started. Patient awake, very agitated and anxious. contacted Dr. Chavarria. Received prn Ativan order. 1mg Ativan ivp given. VSS.
--- NOTE | 2019-04-02 12:00 | NUR ---
NURSE NOTES: Patient awake, became restless, attempted pull out ETT. Patient on bilateral wrist soft restraints. no skin breakdown noted, weak pulses present. Increased fentanyl gtt to achieve RASS goal of -2. will continue to monitor.
--- NOTE | 2019-04-02 12:25 | NUR ---
NURSE NOTES: patient noted with BS 66. D50 25ml IVP given.
--- NOTE | 2019-04-02 12:40 | NUR ---
NURSE NOTES: BS rechecked, BS 91 noted.
--- NOTE | 2019-04-02 14:00 | NUR ---
NURSE NOTES: Patient noted with BP 88/46, Levophed at 30mcg, Matthew increased to 110mcg/min.
[2019-04-02] MEDS ORDERED: NS 275ml ONE (14:49)
[2019-04-02] MEDS ORDERED: Tubing IV Secondary IV ONE ×2 (14:49→15:14)
--- NOTE | 2019-04-02 15:51 | Surgery Progress Note ---
Surgery Progress Note Subjective Procedure Performed Left femoral triple-lumen central venous catheter insertion Additional Comments on levo and ryan. wbc 15k. lactic acidosis. cxr worse. on vent support Objective Last 24 Hour Vital Signs Date Time Temp Pulse Resp B/P (MAP) Pulse Ox O2 Delivery O2 Flow Rate FiO2 04/02/19 15:30 99 34 101/48 (65) 99 04/02/19 15:15 98 35 32 Mechanical Ventilator 40 96 38 40 04/02/19 15:15 95 32 94/43 (60) 100 04/02/19 15:00 95 33 91/44 (60) 100 04/02/19 15:00 35 Mechanical Ventilator 40 04/02/19 15:00 91/44 04/02/19 14:45 97 34 91/44 (60) 100 04/02/19 14:30 101 33 87/43 (58) 100 04/02/19 14:15 97 32 90/44 (59) 100 04/02/19 14:00 101 36 88/46 (60) 100 04/02/19 14:00 36 Mechanical Ventilator 40 04/02/19 14:00 88/46 04/02/19 13:45 102 34 92/42 (59) 100 04/02/19 13:33 103 96/45 04/02/19 13:32 96/45 04/02/19 13:30 95/40 04/02/19 13:30 108 33 95/40 (58) 100 04/02/19 13:15 102 34 101/45 (63) 100 04/02/19 13:00 106 36 98/51 (67) 100 04/02/19 13:00 36 Mechanical Ventilator 40 04/02/19 13:00 98/51 04/02/19 12:53 104 38 40 04/02/19 12:45 113 38 106/48 (67) 100 04/02/19 12:40 39 Mechanical Ventilator 40 04/02/19 12:35 38 Mechanical Ventilator 40 04/02/19 12:30 111 36 100/52 (68) 100 04/02/19 12:30 39 Mechanical Ventilator 40 04/02/19 12:25 38 Mechanical Ventilator 40 04/02/19 12:20 38 Mechanical Ventilator 40 04/02/19 12:15 36 Mechanical Ventilator 40 04/02/19 12:15 113 36 115/50 (71) 100 04/02/19 12:10 36 Mechanical Ventilator 40 04/02/19 12:05 36 Mechanical Ventilator 40 04/02/19 12:00 Endotracheal Tube 04/02/19 12:00 114 04/02/19 12:00 98.3 114 37 120/54 (76) 100 04/02/19 12:00 38 Mechanical Ventilator 40 04/02/19 12:00 120/54 04/02/19 12:00 40 04/02/19 11:55 38 Mechanical Ventilator 40 04/02/19 11:50 38 Mechanical Ventilator 40 04/02/19 11:45 36 Mechanical Ventilator 40 04/02/19 11:45 104 37 100/47 (64) 100 04/02/19 11:30 110 34 113/75 (88) 100 04/02/19 11:30 34 Mechanical Ventilator 40 04/02/19 11:15 105 33 110/53 (72) 100 04/02/19 11:05 98 35 100 Mechanical Ventilator 40 98 38 40 04/02/19 11:00 94 31 91/57 (68) 100 04/02/19 11:00 34 Mechanical Ventilator 40 04/02/19 11:00 91/57 04/02/19 10:45 98 34 92/42 (59) 100 04/02/19 10:40 34 Mechanical Ventilator 40 04/02/19 10:35 35 Mechanical Ventilator 40 04/02/19 10:30 100 37 91/45 (60) 100 04/02/19 10:30 37 Mechanical Ventilator 40 04/02/19 10:25 36 Mechanical Ventilator 40 04/02/19 10:20 38 Mechanical Ventilator 40 04/02/19 10:15 110 38 120/102 (108) 96 04/02/19 10:15 36 Mechanical Ventilator 40 04/02/19 10:10 36 Mechanical Ventilator 40 04/02/19 10:06 102 36 106/36 (59) 100 04/02/19 10:05 38 Mechanical Ventilator 40 04/02/19 10:00 36 Mechanical Ventilator 40 04/02/19 10:00 93/53 04/02/19 10:00 95 37 93/53 (66) 99 04/02/19 09:58 38 Mechanical Ventilator 40 04/02/19 09:58 37 93/53 Mechanical Ventilator 40 04/02/19 09:45 97 37 98/53 (68) 99 04/02/19 09:30 96 36 99/51 (67) 100 04/02/19 09:15 100 36 99/52 (68) 99 04/02/19 09:00 142 34 97/43 (61) 99 04/02/19 09:00 97/43 04/02/19 09:00 34 97/43 Non-Rebreather 40 04/02/19 08:45 152 34 102/46 (64) 100 04/02/19 08:32 140 38 40 04/02/19 08:30 162 38 104/56 (72) 99 04/02/19 08:15 135 34 90/76 (81) 100 04/02/19 08:04 34 96/47 Mechanical Ventilator 40 04/02/19 08:03 36 96/47 Mechanical Ventilator 40 04/02/19 08:00 96/47 04/02/19 08:00 34 96/47 Mechanical Ventilator 40 04/02/19 08:00 96 04/02/19 08:00 40 04/02/19 08:00 Endotracheal Tube 04/02/19 08:00 98.0 98 36 96/47 (63) 100 04/02/19 07:48 106 34 111/42 (65) 100 04/02/19 07:45 104 35 89/56 (67) 100 04/02/19 07:30 106 34 105/47 (66) 100 04/02/19 07:15 118 30 101/49 (66) 100 04/02/19 07:04 105 34 100 Mechanical Ventilator 40 87 32 40 04/02/19 07:00 83/42 04/02/19 07:00 32 83/42 Endotracheal Tube 40 04/02/19 07:00 88 96/47 04/02/19 07:00 87 24 83/46 (58) 100 04/02/19 06:45 92 32 96/47 (63) 100 04/02/19 06:45 83/46 04/02/19 06:30 99 33 95/47 (63) 100 04/02/19 06:15 98 29 95/46 (62) 100 04/02/19 06:00 95/46 04/02/19 06:00 32 95/46 Endotracheal Tube 40 04/02/19 06:00 100 100/45 04/02/19 06:00 97 34 100/45 (63) 100 04/02/19 05:45 100 33 96/48 (64) 100 04/02/19 05:30 104 36 102/51 (68) 100 04/02/19 05:17 115 35 40 04/02/19 05:15 99 33 112/51 (71) 100 04/02/19 05:00 109/52 04/02/19 05:00 33 109/52 Mechanical Ventilator 40 04/02/19 04:45 97 36 99/49 (66) 99 04/02/19 04:33 32 102/47 Endotracheal Tube 40 04/02/19 04:30 97 35 102/47 (65) 100 04/02/19 04:30 36 102/47 Endotracheal Tube 40 04/02/19 04:15 99 37 107/51 (69) 100 04/02/19 04:15 36 102/47 Endotracheal Tube 40 04/02/19 04:00 Endotracheal Tube 04/02/19 04:00 107/51 04/02/19 04:00 37 107/51 Endotracheal Tube 40 04/02/19 04:00 98.3 101 37 110/44 (66) 99 04/02/19 04:00 95 04/02/19 03:45 36 110/44 Endotracheal Tube 40 04/02/19 03:45 106 37 130/54 (79) 100 04/02/19 03:41 101/83 04/02/19 03:40 101/83 04/02/19 03:30 100 31 101/83 (89) 100 04/02/19 03:30 33 101/83 Endotracheal Tube 40 04/02/19 03:18 100 32 100 Mechanical Ventilator 40 04/02/19 03:15 92 32 95/43 (60) 100 04/02/19 03:12 40 04/02/19 03:08 94 32 100 Mechanical Ventilator 40 94 32 40 04/02/19 03:00 94 32 100/46 (64) 100 04/02/19 03:00 100/46 04/02/19 03:00 32 100/46 Endotracheal Tube 50 04/02/19 02:45 96 32 99/45 (63) 100 04/02/19 02:31 94 31 93/41 (58) 100 04/02/19 02:30 95 32 85/43 (57) 100 04/02/19 02:15 97 33 107/49 (68) 100 10/20/19 02:00 107/49 04/02/19 02:00 33 107/49 Endotracheal Tube 50 04/02/19 02:00 99 34 99/49 (66) 100 04/02/19 01:45 97 32 105/49 (67) 100 04/02/19 01:30 98 33 50 04/02/19 01:30 98 33 98/47 (64) 100 04/02/19 01:20 103 122/107 04/02/19 01:19 30 122/107 Endotracheal Tube 50 04/02/19 01:18 33 119/44 Endotracheal Tube 50 04/02/19 01:15 102 32 119/44 (69) 100 04/02/19 01:00 97 33 99/47 (64) 100 04/02/19 01:00 122/107 04/02/19 00:45 98 34 93/49 (64) 100 04/02/19 00:30 100 34 102/48 (66) 98 04/02/19 00:30 34 93/49 Endotracheal Tube 50 04/02/19 00:15 34 102/48 Endotracheal Tube 50 04/02/19 00:15 100 35 100/49 (66) 100 04/02/19 00:00 50 04/02/19 00:00 101 04/02/19 00:00 Endotracheal Tube 04/02/19 00:00 100/49 04/02/19 00:00 35 100/49 Endotracheal Tube 50 04/02/19 00:00 99.3 102 35 106/53 (70) 100 04/01/19 23:45 35 106/53 Endotracheal Tube 50 04/01/19 23:45 105 35 109/45 (66) 100 04/01/19 23:30 109 28 121/58 (79) 98 04/01/19 23:30 30 121/58 Endotracheal Tube 50 04/01/19 23:16 108 33 99 Mechanical Ventilator 50 04/01/19 23:15 97 32 93/49 (64) 100 04/01/19 23:06 103 35 99 Mechanical Ventilator 50 103 35 50 04/01/19 23:00 107/52 04/01/19 23:00 30 107/52 Endotracheal Tube 50 04/01/19 23:00 103 35 107/52 (70) 100 04/01/19 22:45 105 31 105/53 (70) 10/19/19 22:30 105 34 113/49 (70) 100 04/01/19 22:25 99.5 04/01/19 22:15 107 37 111/46 (67) 99 04/01/19 22:00 110 25 125/76 (92) 99 04/01/19 22:00 125/76 04/01/19 22:00 30 125/76 Endotracheal Tube 50 04/01/19 22:00 110 121/60 04/01/19 21:45 99.6 108 32 121/60 (80) 99 04/01/19 21:30 109 30 110/57 (74) 99 04/01/19 21:15 29 121/60 Endotracheal Tube 50 04/01/19 21:15 100.4 104 33 104/49 (67) 100 04/01/19 21:10 107 34 50 04/01/19 21:03 30 105/65 Endotracheal Tube 50 04/01/19 21:00 104/49 04/01/19 21:00 32 104/49 Mechanical Ventilator 50 04/01/19 21:00 106 36 105/65 (78) 100 04/01/19 20:45 36 105/65 Endotracheal Tube 50 04/01/19 20:45 108 37 105/57 (73) 99 04/01/19 20:30 109 27 111/54 (73) 99 04/01/19 20:30 33 115/54 Mechanical Ventilator 50 04/01/19 20:15 111 35 113/46 (68) 99 04/01/19 20:15 30 115/70 Endotracheal Tube 50 04/01/19 20:00 98.8 110 26 118/84 (95) 99 04/01/19 20:00 Endotracheal Tube 04/01/19 20:00 105 04/01/19 20:00 50 04/01/19 20:00 118/84 04/01/19 20:00 29 118/84 Endotracheal Tube 50 04/01/19 19:51 100 29 102/71 (81) 100 04/01/19 19:48 99 28 88/45 (59) 100 04/01/19 19:45 97 32 87/43 (58) 100 04/01/19 19:42 98 115/53 04/01/19 19:37 98 34 100 Mechanical Ventilator 50 04/01/19 19:30 106 35 115/53 (73) 100 04/01/19 19:27 106 36 100 Mechanical Ventilator 50 106 36 50 04/01/19 19:15 105 36 116/49 (71) 100 04/01/19 19:00 107 34 122/64 (83) 99 04/01/19 19:00 122/62 04/01/19 19:00 35 122/62 Endotracheal Tube 50 04/01/19 18:55 122/62 04/01/19 18:55 122/62 04/01/19 18:55 122/62 04/01/19 18:55 122/62 04/01/19 18:55 122/62 04/01/19 18:55 122/62 04/01/19 18:55 122/62 04/01/19 18:55 122/62 04/01/19 18:55 32 122/62 Mechanical Ventilator 04/01/19 18:55 32 122/62 Mechanical Ventilator 04/01/19 18:55 32 122/62 Mechanical Ventilator 04/01/19 18:55 32 122/62 Mechanical Ventilator 04/01/19 18:55 32 122/62 Mechanical Ventilator 04/01/19 18:55 32 122/62 Mechanical Ventilator 04/01/19 18:55 32 122/62 Mechanical Ventilator 04/01/19 18:55 32 122/62 Mechanical Ventilator 04/01/19 18:45 107 34 122/64 (83) 99 04/01/19 18:45 122/64 04/01/19 18:45 122/64 04/01/19 18:45 122/64 04/01/19 18:45 122/64 04/01/19 18:45 122/64 04/01/19 18:45 122/64 04/01/19 18:45 122/64 04/01/19 18:45 122/64 04/01/19 18:45 32 122/64 Mechanical Ventilator 04/01/19 18:45 32 122/64 Mechanical Ventilator 04/01/19 18:45 32 122/64 Mechanical Ventilator 04/01/19 18:45 32 122/64 Mechanical Ventilator 04/01/19 18:45 32 122/64 Mechanical Ventilator 04/01/19 18:45 32 122/64 Mechanical Ventilator 04/01/19 18:45 32 122/64 Mechanical Ventilator 04/01/19 18:45 32 122/64 Mechanical Ventilator / 18:45 32 122/64 Mechanical Ventilator 04/01/ 18:30 111/58 04/01/19 18:30 111/58 04/01/19 18:30 111/58 04/01/ 18:30 111/58 04/01/19 18:30 111/58 04/01/ 18:30 111/58 04/01/19 18:30 111/58 04/01/19 18:30 111/58 04/01/ 18:30 32 111/58 Mechanical Ventilator 04/01/ 18:30 32 111/58 Mechanical Ventilator 04/01/ 18:30 32 111/58 Mechanical Ventilator 04/01/ 18:30 32 111/58 Mechanical Ventilator 04/01/19 18:30 32 111/58 Mechanical Ventilator 04/01/19 18:30 32 111/58 Mechanical Ventilator 04/01/ 18:30 32 111/58 Mechanical Ventilator 04/01/ 18:30 32 111/58 Mechanical Ventilator 04/01/19 18:30 32 111/58 Mechanical Ventilator 04/01/19 18:30 105 32 111/58 (75) 99 04/01/19 18:15 111/58 19 18:15 111/58 04/01/19 18:15 111/58 04/01/19 18:15 111/58 04/01/19 18:15 111/58 19 18:15 111/58 04/01/19 18:15 111/58 19 18:15 111/58 04/01/19 18:15 32 122/64 Mechanical Ventilator 04/01/19 18:15 32 122/64 Mechanical Ventilator 04/01/19 18:15 32 122/64 Mechanical Ventilator 04/01/19 18:15 32 122/64 Mechanical Ventilator 04/01/19 18:15 32 122/64 Mechanical Ventilator 04/01/ 18:15 32 122/64 Mechanical Ventilator 04/01/19 18:15 32 122/64 Mechanical Ventilator 04/01/ 18:15 32 122/64 Mechanical Ventilator 04/01/ 18:15 32 122/64 Mechanical Ventilator 04/01/19 18:15 104 31 100/67 (78) 99 10/ 18:06 79/44 04/01/19 18:03 102 31 79/44 (56) 100 04/01/19 18:00 102 29 79/44 (56) 99 04/01/19 18:00 32 111/58 Mechanical Ventilator 04/01/19 18:00 32 111/58 Mechanical Ventilator 04/01/19 18:00 32 111/58 Mechanical Ventilator 04/01/19 18:00 32 111/58 Mechanical Ventilator 04/01/19 18:00 32 111/58 Mechanical Ventilator 04/01/19 18:00 32 111/58 Mechanical Ventilator 04/01/19 18:00 32 111/58 Mechanical Ventilator 04/01/19 18:00 32 111/58 Mechanical Ventilator 04/01/19 18:00 32 111/58 Mechanical Ventilator 04/01/19 17:45 32 79/44 Mechanical Ventilator 04/01/19 17:45 32 79/44 Mechanical Ventilator 04/01/19 17:45 32 79/44 Mechanical Ventilator 04/01/19 17:45 32 99/44 Mechanical Ventilator 04/01/19 17:45 32 79/44 Mechanical Ventilator 04/01/19 17:45 32 79/44 Mechanical Ventilator 04/01/19 17:45 32 79/44 Mechanical Ventilator 04/01/19 17:45 32 79/44 Mechanical Ventilator 04/01/19 17:45 32 79/44 Mechanical Ventilator 04/01/19 17:45 98/51 04/01/19 17:45 98/51 04/01/19 17:45 104 33 98/51 (67) 99 04/01/19 17:30 125 32 97/72 (80) 99 04/01/19 17:30 32 98/51 Mechanical Ventilator 04/01/19 17:30 32 98/51 Mechanical Ventilator 04/01/19 17:30 32 98/51 Mechanical Ventilator 04/01/19 17:30 32 98/51 Mechanical Ventilator 04/01/19 17:30 32 98/51 Mechanical Ventilator 04/01/19 17:30 32 98/51 Mechanical Ventilator 04/01/19 17:30 32 98/51 Mechanical Ventilator 04/01/19 17:30 32 98/51 Mechanical Ventilator 04/01/19 17:30 32 98/51 Mechanical Ventilator 04/01/19 17:30 98/51 04/01/19 17:30 98/51 04/01/19 17:30 98/51 04/01/19 17:30 98/51 04/01/19 17:30 98/51 04/01/19 17:30 98/51 04/01/19 17:30 98/51 04/01/19 17:30 98/51 04/01/19 17:15 32 97/72 Mechanical Ventilator 04/01/19 17:15 32 97/72 Mechanical Ventilator 04/01/19 17:15 32 97/72 Mechanical Ventilator 04/01/19 17:15 32 97/72 Mechanical Ventilator 04/01/19 17:15 32 97/72 Mechanical Ventilator 04/01/19 17:15 32 97/72 Mechanical Ventilator 04/01/19 17:15 32 97/72 Mechanical Ventilator 04/01/19 17:15 32 119/53 Mechanical Ventilator 04/01/19 17:15 32 97/72 Mechanical Ventilator 04/01/19 17:15 97/72 04/01/19 17:15 97/72 04/01/19 17:15 97/72 04/01/19 17:15 97/72 04/01/19 17:15 97/72 04/01/19 17:15 97/72 04/01/19 17:15 97/72 04/01/19 17:15 97/72 04/01/19 17:15 127 31 119/53 (75) 99 04/01/19 17:00 32 119/53 Mechanical Ventilator 04/01/19 17:00 32 119/53 Mechanical Ventilator 04/01/19 17:00 32 119/53 Mechanical Ventilator 04/01/19 17:00 32 119/53 Mechanical Ventilator 04/01/19 17:00 32 111/60 Mechanical Ventilator 04/01/19 17:00 32 119/53 Mechanical Ventilator 04/01/19 17:00 32 119/53 Mechanical Ventilator 04/01/19 17:00 32 119/53 Mechanical Ventilator 04/01/19 17:00 32 119/53 Mechanical Ventilator 04/01/19 17:00 119/53 04/01/19 17:00 160/70 04/01/19 17:00 119/53 04/01/19 17:00 119/53 04/01/19 17:00 119/53 04/01/19 17:00 119/53 04/01/19 17:00 119/53 04/01/19 17:00 119/53 04/01/19 17:00 119/53 04/01/19 17:00 127 30 111/60 (77) 99 04/01/19 16:45 32 111/60 Mechanical Ventilator 04/01/19 16:45 32 111/60 Mechanical Ventilator 04/01/19 16:45 32 111/60 Mechanical Ventilator 04/01/19 16:45 32 111/60 Mechanical Ventilator 04/01/19 16:45 32 111/60 Mechanical Ventilator 04/01/19 16:45 32 111/60 Mechanical Ventilator 04/01/19 16:45 32 94/51 Mechanical Ventilator 04/01/19 16:45 32 111/60 Mechanical Ventilator 04/01/19 16:45 32 111/60 Mechanical Ventilator 04/01/19 16:45 94/51 04/01/19 16:45 94/51 04/01/19 16:45 94/51 04/01/19 16:45 94/51 04/01/19 16:45 94/51 04/01/19 16:45 94/51 04/01/19 16:45 94/51 04/01/19 16:45 94/51 04/01/19 16:45 102 31 94/51 (65) 100 04/01/19 16:30 105 30 118/55 (76) 99 04/01/19 16:30 106 33 50 04/01/19 16:30 32 94/51 Mechanical Ventilator 04/01/19 16:30 32 94/51 Mechanical Ventilator 04/01/19 16:30 32 94/51 Mechanical Ventilator 04/01/19 16:30 32 94/51 Mechanical Ventilator 04/01/19 16:30 32 94/51 Mechanical Ventilator 04/01/19 16:30 32 94/51 Mechanical Ventilator 04/01/19 16:30 32 94/51 Mechanical Ventilator 04/01/19 16:30 32 94/51 Mechanical Ventilator 04/01/19 16:30 32 94/51 Mechanical Ventilator 04/01/19 16:30 118/55 04/01/19 16:30 118/55 04/01/19 16:30 118/55 04/01/19 16:30 118/55 04/01/19 16:30 118/55 04/01/19 16:30 118/55 04/01/19 16:30 118/55 04/01/19 16:30 118/55 04/01/19 16:15 105 31 114/56 (75) 99 04/01/19 16:15 32 118/55 Mechanical Ventilator 04/01/19 16:15 32 118/55 Mechanical Ventilator 04/01/19 16:15 32 118/55 Mechanical Ventilator 04/01/19 16:15 32 118/55 Mechanical Ventilator 04/01/19 16:15 32 118/55 Mechanical Ventilator 04/01/19 16:15 32 118/55 Mechanical Ventilator 04/01/19 16:15 32 118/55 Mechanical Ventilator 04/01/19 16:15 32 118/55 Mechanical Ventilator 04/01/19 16:15 32 118/55 Mechanical Ventilator 04/01/19 16:15 118/55 04/01/19 16:15 118/55 04/01/19 16:15 118/55 04/01/19 16:15 118/55 04/01/19 16:15 118/55 04/01/19 16:15 118/55 04/01/19 16:15 118/55 04/01/19 16:15 118/55 04/01/19 16:11 105 32 125/51 (75) 99 04/01/19 16:00 98.6 129 30 154/73 (100) 98 04/01/19 16:00 32 125/51 Mechanical Ventilator 04/01/19 16:00 32 125/51 Mechanical Ventilator 04/01/19 16:00 32 125/51 Mechanical Ventilator 04/01/19 16:00 32 125/51 Mechanical Ventilator 04/01/19 16:00 32 125/51 Mechanical Ventilator 04/01/19 16:00 32 125/51 Mechanical Ventilator 04/01/19 16:00 32 118/55 Mechanical Ventilator 04/01/19 16:00 32 125/51 Mechanical Ventilator 04/01/19 16:00 32 125/51 Mechanical Ventilator 04/01/19 16:00 154/73 04/01/19 16:00 154/73 04/01/19 16:00 154/73 04/01/19 16:00 154/73 04/01/19 16:00 154/73 04/01/19 16:00 154/73 04/01/19 16:00 152/63 04/01/19 16:00 154/73 04/01/19 16:00 154/73 04/01/19 16:00 129 04/01/19 16:00 Endotracheal Tube I&O Intake and Output 04/01/19 04/02/19 19:00 07:00 Intake Total 2344.641 ml 2628.157 ml Output Total 445 ml 175 ml Balance 1899.641 ml 2453.157 ml Free Water 50 ml IV Total 2294.641 ml 2628.157 ml Output Urine Total 445 ml 175 ml # Bowel Movements 2 Cardiovascular: RSR Respiratory: decreased breath sounds Abdomen: soft, present bowel sounds, non-distended Extremities: no tenderness, no cyanosis Laboratory Tests Test 04/01/19 17:57 04/02/19 00:34 04/02/19 04:38 04/02/19 07:41 Lactic Acid Level 12.10 mmol/L (0.4-2.0) H 13.60 mmol/L (0.4-2.0) H 14.10 mmol/L (0.66-2.22) H White Blood Count 15.5 K/UL (4.8-10.8) H Red Blood Count 3.78 M/UL (4.70-6.10) L Hemoglobin 11.9 G/DL (14.2-18.0) L Hematocrit 34.1 % (42.0-52.0) L Mean Corpuscular Volume 90 FL (80-99) Mean Corpuscular Hemoglobin 31.5 PG (27.0-31.0) H Mean Corpuscular Hemoglobin Concent 34.9 G/DL (32.0-36.0) Red Cell Distribution Width 13.5 % (11.6-14.8) Platelet Count 91 K/UL (150-450) L Mean Platelet Volume 8.1 FL (6.5-10.1) Neutrophils (%) (Auto) % (45.0-75.0) Lymphocytes (%) (Auto) % (20.0-45.0) Monocytes (%) (Auto) % (1.0-10.0) Eosinophils (%) (Auto) % (0.0-3.0) Basophils (%) (Auto) % (0.0-2.0) Differential Total Cells Counted 100 Neutrophils % (Manual) 58 % (45-75) Lymphocytes % (Manual) 28 % (20-45) Monocytes % (Manual) 6 % (1-10) Eosinophils % (Manual) 1 % (0-3) Basophils % (Manual) 0 % (0-2) Band Neutrophils 7 % (0-8) Platelet Estimate Decreased L Platelet Morphology Normal Polychromasia 1+ Erythrocyte Sedimentation Rate 105 MM/HR (0-20) H Prothrombin Time 30.6 SEC (9.30-11.50) H Prothromb Time International Ratio 3.1 (0.9-1.1) H Activated Partial Thromboplast Time 34 SEC (23-33) H Sodium Level 151 MMOL/L (136-145) H Potassium Level 4.9 MMOL/L (3.5-5.1) Chloride Level 111 MMOL/L (98-107) H Carbon Dioxide Level 15 MMOL/L (21-32) L Anion Gap 25 mmol/L (5-15) H Blood Urea Nitrogen 59 mg/dL (7-18) H Creatinine 3.5 MG/DL (0.55-1.30) H Estimat Glomerular Filtration Rate 21.5 mL/min (>60) Glucose Level 100 MG/DL (74-106) Calcium Level 8.1 MG/DL (8.5-10.1) L Total Bilirubin 3.5 MG/DL (0.2-1.0) H Direct Bilirubin 1.9 MG/DL (0.0-0.3) H Aspartate Amino Transf (AST/SGOT) 2617 U/L (15-37) H Alanine Aminotransferase (ALT/SGPT) 1522 U/L (12-78) H Alkaline Phosphatase 357 U/L (46-116) H C-Reactive Protein, Quantitative 30.0 mg/dL (0.00-0.90) H Total Protein 6.4 G/DL (6.4-8.2) Albumin 2.0 G/DL (3.4-5.0) L Globulin 4.4 g/dL Albumin/Globulin Ratio 0.5 (1.0-2.7) L Triglycerides Level 508 MG/DL (30-150) H Amylase Level 62 U/L (25-115) Lipase 508 U/L (73-393) H Arterial Blood pH 7.294 (7.350-7.450) Arterial Blood Partial Pressure CO2 25.1 mmHg (35.0-45.0) L Arterial Blood Partial Pressure O2 99.9 mmHg (75.0-100.0) Arterial Blood HCO3 11.9 mmol/L (22.0-26.0) *L Arterial Blood Oxygen Saturation 96.5 % (95-100) Arterial Blood Base Excess -13.0 (-2-2) *L [place] Test Positive Test 04/02/19 09:45 04/02/19 11:40 Lactic Acid Level 15.00 mmol/L (0.4-2.0) H 15.40 mmol/L (0.66-2.22) H Ammonia < 10 umol/L (11-32) L Plan Problems: (1) Sepsis Assessment & Plan: 63-year-old male with fevers, leukocytosis, abnormal labs, respiratory depression, intubated on vent support, abdominal distention, UTI. Etiology of sepsis sepsis being worked up. Patient on IV antibiotics. Patient recently pulled out right groin triple-lumen central venous catheter and has poor peripheral access. Patient requiring pressors fluids and medications and is unable to receive them at this time. New central line was placed by myself at the bedside. Please refer to note. Worsening renal insufficiency NG tube to low intermittent suction IV fluids IV antibiotics Local wound care Line Care and management wean pressors as possible AM CXR vent support Trend labs We will follow with recommendations thank you for allowing me to participate in patient's care (2) Febrile illness Camden Mckenna Apr 02, 2019 15:51
--- NOTE | 2019-04-02 16:00 | NUR ---
NURSE NOTES: Patient resting in bed comfortably. On Fentanyl gtt at 220mcg/hr, at RASS -2. Patient on Levophed at 30mcg/min and Matthew at 150mcg/min. Removed bilateral wrist soft restraints. No skin breakdown noted, weak pulses present.
--- NOTE | 2019-04-02 16:00 | NUR ---
NURSE NOTES: Patient noted distended abdomen, 600cc dark red/brownish secretion noted from OGT suction. Informed Dr. Mckenna. OGT connected to low intermittent suction per MD.
--- NOTE | 2019-04-02 16:23 | NUR ---
NURSE NOTES: Patient noted with low urine output. Dr. Magana made aware. MD made aware of patient on levophed at 30mcg/min and Matthew at 150mcg/min. 500ml NS bolus ordered.
--- NOTE | 2019-04-02 18:00 | NUR ---
NURSE NOTES: Patient was turned and repositioned. patient kept clean and dry. Oden care and oral care provided. Patient resting in bed comfortably. No acute distress noted. On Levophed at 30mcg/min, Matthew at 150mcg/min, Fentanyl at 220mcg/hr via left femoral TLC, dressing intact, clean and dry. RASS goal of -2 achieved. SR-ST HR 90s-100s noted on manager monitoring. SCDs on bilateral lower extremities.
--- NOTE | 2019-04-02 18:15 | NUR ---
NURSE NOTES: D50 25ml given for BS 60. BS rechecked in 15min, BS 99 noted.
--- NOTE | 2019-04-02 19:25 | NUR ---
RESPIRATORY NOTE: Received pt on AC 32, 600VT, 40%, PEEP +5. Pt intubated w/ ETT 7.5 @ 22cm lipline, secured by anchorfast. Pt is sedated. B/S cassie. clear-diminished, sxn small amounts of thin, brown secretions w/ occasional blood. Vent plugged into red outlet, ambubag at bedside. Pt in no apparent distress at this time. Will continue to monitor pt.
--- NOTE | 2019-04-02 19:25 | NUR ---
HAND-OFF: Report given to FIDEL Holder.
--- NOTE | 2019-04-02 19:45 | NUR ---
NURSE NOTES: Patient in bed in critical condition. Patient is full code per . ETT to vent %. Titrate Phenylephrine to 240mcg/min,Fentanyl drip to 240mcg/min, Levo @ 30mcg/min, Sodium Bicarb 100cc/hr on Left Femoral TLC, BP 86/39 HR 131. Turned and repositioned. OGT connected to low intermittent suction. Oral care provided. No s/s of hypo/hyperglycemia. Frequent visual checks continued. Will continue plan of care. Addendum: 04/03/19 at 0057 by MONO WHARTON RN Rass score +1 restless
--- NOTE | 2019-04-02 19:59 | NUR ---
NURSE NOTES: at bedside per she will go home and come back in the morning.
[2019-04-02] MEDS: Dyna-Hex 2% Top Sol 2oz TOPIC SCH (20:29)
[2019-04-02] MEDS ORDERED: Pantoprazole Inj IVP SCH (21:00)
--- NOTE | 2019-04-02 22:05 | NUR ---
NURSE NOTES: Called and spoke with MD Chavarria in regards to patient SBP 81 at this time. Orders was given to bolus 2 L of NS and call MD Kumar
--- NOTE | 2019-04-02 22:10 | NUR ---
NURSE NOTES: Called Dr. Kumar per Dr. Chavarria, spoke with Dr. Hastings and made aware of patient condition per Dr. Venkata Gutiérrez is the vocational guidance counselor MD for Dr. Kumar. Called Dr. Gutiérrez and left message.
[2019-04-02] MEDS ORDERED: Vasopressin 100 UNITS in NS 95 ML IV SCH (23:00)
--- NOTE | 2019-04-02 23:33 | NUR ---
NURSE NOTES: Blood glucose 66mg/dl Dextrose 50% 25ml given IVP will rechecked blood glucose in 15 min.
--- NOTE | 2019-04-02 23:45 | NUR ---
NURSE NOTES: Rechecked Blood glucose 115mg/dl. Patient in bed in critical condition. Patient full code per . Continue on Phenylephrine @ 240mcg/min, Levo @ 30mcg/min, Fentanyl drip @ 240mcg/min, Sodium Bicarb 100cc/hr on Left Femoral TLC, BP 107/46 HR 121 Resp 30. Temp 98.6 Axillary. Turned and repositioned. Oral care provided. Frequent visual checks continued. Will continue plan of care.
[2019-04-03] VITALS (37 sets, daily range): BP systolic 48–124; BP diastolic 18–84
--- NOTE | 2019-04-03 00:53 | NUR ---
NURSE NOTES: Started Vasopressin drip at 0.6mls/hr BP 89/40 MAP 49.
--- NOTE | 2019-04-03 01:00 | NUR ---
NURSE NOTES: Hold Heparin drip will restart in 1 hour. timed PTT at 0800
--- NOTE | 2019-04-03 02:13 | NUR ---
NURSE NOTES: Left message to Dr. Chavarria regarding the patient on max Levophed, Phenylephrine, and Vasopressin BP 77/50. Titrated Fentanyl to 100mcg. pt is full code.
[2019-04-03] MEDS: Phenylephrine 50 MG in D5W 245 ML IV SCH ×2 (02:31→06:09)
--- NOTE | 2019-04-03 03:16 | NUR ---
NURSE NOTES: Called and notified MD Chavarria in regards to patient HR and ABG results at this time. awaiting call back
[2019-04-03] MEDS: Albuterol/Ipratropium 3ml neb HHN SCH (03:25)
--- NOTE | 2019-04-03 04:20 | NUR ---
NURSE NOTES: Spoke with line construction supervisor Nayana Gambino at this time. We have been trying to get call MD Chavarria but no answer. Needs to be called at home and chain of command needs to be done. Stated she would call Deon at home and transfer the call to ICU. Glory PARRA informed and waiting for call.
--- NOTE | 2019-04-03 04:36 | NUR ---
NURSE NOTES: Patient Simran came and made aware of patient condition. Dr Chavarria called and spoke with regarding the code status of the patient.The patient Simran agreed for DNR/DNI. in the patient room, per give her time to sign the POLST, also shes waiting for her daughter. Respect family wish.
[2019-04-03 05:13] LABS: HEMATOCRIT 31.5 % (42.0-52.0); HEMOGLOBIN 10.5 G/DL (14.2-18.0); MEAN CORPUSCULAR VOLUME 94 FL (80-99); PLATELET COUNT 52 K/UL (150-450); RED BLOOD COUNT 3.36 M/UL (4.70-6.10); RED CELL DISTRIBUTION WIDTH 14.4 % (11.6-14.8); WHITE BLOOD COUNT 10.3 K/UL (4.8-10.8)
--- NOTE | 2019-04-03 05:21 | Diagnostic Imaging Report ---
Indication: Status post orogastric tube placement Technique: Supine view of the upper abdomen Comparison: 03/31/2019 Findings: Interim advancement or replacement of orogastric tube, tip now projected at the level of the gastric antrum. There are right upper quadrant surgical clips. The stomach has been decompressed in the interim. Impression: Satisfactory position of orogastric tube Interval gastric decompression. This agrees with the preliminary interpretation provided overnight by [facility] teleradiology service.
--- NOTE | 2019-04-03 05:45 | Diagnostic Imaging Report ---
Indication: Shortness of breath, post intubation Technique: One view of the chest Comparison: 5 minutes earlier Findings: Essentially stable and satisfactory position of endotracheal tube. Nasogastric tube projects beyond the edge images. Bilateral extensive diffuse airspace disease is again demonstrated and appears unchanged. The pleural spaces are grossly clear. The heart size is normal Impression: Unchanged, over 5 minutes, findings as above.
--- NOTE | 2019-04-03 05:54 | NUR ---
CODE BLUE: See Code sheet which remains on paper.
[2019-04-03] MEDS: NovoLOG Insulin Flexpen SUBQ SCH ×2 (06:00)
[2019-04-03] MEDS: Propranolol 40mg tab NG SCH (06:00)
--- NOTE | 2019-04-03 06:03 | NUR ---
NURSE NOTES: ROSC at this time patient SR HR 64. Family at bedside
[2019-04-03 06:06] LABS: AMYLASE 111 U/L (25-115)
--- NOTE | 2019-04-03 06:10 | NUR ---
NURSE NOTES: signed POLST DNR.
[2019-04-03] MEDS: Meropenem 1 GM in NS 55 ML IVPB SCH (06:11)
--- NOTE | 2019-04-03 06:13 | Emergency Room Report ---
Physical Exam Called for Code Blue in ICU - asystole after ricardo Patient on 3 drips. Bicarb also. Sepsis with multiple organ failure. Last 24 Hour Vital Signs Date Time Temp Pulse Resp B/P (MAP) Pulse Ox O2 Delivery O2 Flow Rate FiO2 04/03/19 06:09 148 57/40 04/03/19 05:15 148 36 105/51 (69) 04/03/19 05:00 146 36 100 04/03/19 05:00 94/67 04/03/19 05:00 148 34 94/67 (76) 04/03/19 04:45 145 34 67/36 (46) 04/03/19 04:30 175 36 75/31 (46) 04/03/19 04:25 173 35 99/78 (85) 04/03/19 04:15 109 33 81/61 (68) 04/03/19 04:03 142 28 83/44 (57) 85 04/03/19 04:00 Endotracheal Tube 04/03/19 04:00 98.0 04/03/19 04:00 100 04/03/19 04:00 48/39 04/03/19 03:45 157 30 95/32 (53) 84 04/03/19 03:30 126 21 94/32 (52) 87 04/03/19 03:25 136 34 100 04/03/19 03:15 162 35 83/41 (55) 04/03/19 03:00 83/41 04/03/19 03:00 168 24 111/37 (61) 91 04/03/19 02:45 95 25 105/37 (59) 91 04/03/19 02:31 93 85/45 04/03/19 02:30 91 24 87/40 (56) 92 04/03/19 02:15 93 25 85/45 (58) 99 04/03/19 02:10 94 26 77/50 (59) 97 04/03/19 02:09 100 27 51/32 (38) 100 04/03/19 02:07 93 24 54/23 (33) 100 04/03/19 02:01 123 25 82/44 (57) 99 04/03/19 02:00 82/44 04/03/19 01:50 121 24 80/53 (62) 86 04/03/19 01:45 100 25 78/45 (56) 82 04/03/19 01:30 102 25 105/55 (72) 86 04/03/19 01:15 90 29 106/42 (63) 04/03/19 01:00 106/42 04/03/19 01:00 92 29 104/84 (91) 04/03/19 01:00 112 38 60 04/03/19 00:45 72 25 90/46 (61) 04/03/19 00:40 73 27 89/40 (56) 96 04/03/19 00:35 78 26 79/18 (38) 96 04/03/19 00:30 89 25 81/19 (39) 96 04/03/19 00:15 85 28 93/39 (57) 96 04/03/19 00:00 60 04/03/19 00:00 98.0 135 30 92/49 (63) 95 04/03/19 00:00 Endotracheal Tube 04/03/19 00:00 93/39 04/02/19 23:51 120 28 107/46 (66) 95 04/02/19 23:45 110 34 131/48 (75) 95 04/02/19 23:30 100 30 106/45 (65) 95 04/02/19 23:15 91 34 88/32 (50) 95 04/02/19 23:05 132 35 40 04/02/19 23:00 107 33 98/43 (61) 96 04/02/19 23:00 35 Endotracheal Tube 40 04/02/19 23:00 88/32 04/02/19 22:53 104 80/67 04/02/19 22:45 104 33 80/67 (71) 96 04/02/19 22:30 100 36 87/38 (54) 96 04/02/19 22:28 91/48 04/02/19 22:15 110 36 90/41 (57) 96 04/02/19 22:05 107 33 91/48 (62) 96 04/02/19 22:00 33 Endotracheal Tube 40 04/02/19 22:00 91/48 04/02/19 22:00 101 81/46 04/02/19 22:00 127 35 89/44 (59) 96 04/02/19 21:51 98.1 04/02/19 21:30 101 35 81/46 (58) 97 04/02/19 21:21 33 Endotracheal Tube 15.0 40 04/02/19 21:20 33 Endotracheal Tube 40 04/02/19 21:15 107 36 90/49 (63) 97 04/02/19 21:00 33 Endotracheal Tube 40 04/02/19 21:00 88/39 04/02/19 21:00 102 33 88/39 (55) 94 04/02/19 20:54 105 36 40 04/02/19 20:45 104 35 91/40 (57) 95 04/02/19 20:30 106 35 94/44 (61) 93 04/02/19 20:15 103 36 92/45 (61) 93 04/02/19 20:00 98.1 103 35 86/39 (55) 99 04/02/19 20:00 36 Endotracheal Tube 40 04/02/19 20:00 86/39 04/02/19 20:00 40 04/02/19 20:00 Endotracheal Tube 04/02/19 19:45 138 36 99/51 (67) 98 04/02/19 19:37 114 8 85/43 (57) 100 04/02/19 19:32 116 32 100 Mechanical Ventilator 40 04/02/19 19:30 114 32 72/35 (47) 100 04/02/19 19:28 104 86/54 04/02/19 19:22 111 36 98 Mechanical Ventilator 40 111 36 40 04/02/19 19:17 104 36 86/54 (65) 98 04/02/19 19:15 102 36 88/46 (60) 98 04/02/19 19:00 34 Mechanical Ventilator 40 04/02/19 19:00 92/44 04/02/19 19:00 104 35 92/44 (60) 98 04/02/19 18:45 102 37 95/42 (59) 98 04/02/19 18:30 101 36 92/46 (61) 98 04/02/19 18:15 99 32 91/43 (59) 99 04/02/19 18:00 98 32 92/41 (58) 99 04/02/19 18:00 91/43 04/02/19 17:45 99 32 90/46 (61) 100 04/02/19 17:30 100 36 90/44 (59) 99 04/02/19 17:15 99 32 100/45 (63) 99 10/20/19 17:00 34 Mechanical Ventilator 40 04/02/19 17:00 95/44 04/02/19 17:00 99 32 95/44 (61) 99 04/02/19 16:59 99 Mechanical Ventilator 40 04/02/19 16:45 99 29 93/45 (61) 99 04/02/19 16:30 100 37 94/49 (64) 99 04/02/19 16:15 99 36 95/43 (60) 99 04/02/19 16:00 Endotracheal Tube 04/02/19 16:00 34 Mechanical Ventilator 40 04/02/19 16:00 91/42 04/02/19 16:00 120 04/02/19 16:00 40 04/02/19 16:00 98.6 100 34 91/42 (58) 99 04/02/19 15:45 99 36 99/46 (63) 99 04/02/19 15:30 99 34 101/48 (65) 99 04/02/19 15:15 98 35 32 Mechanical Ventilator 40 96 38 40 04/02/19 15:15 95 32 94/43 (60) 100 04/02/19 15:00 95 33 91/44 (60) 100 04/02/19 15:00 35 Mechanical Ventilator 40 04/02/19 15:00 91/44 04/02/19 14:45 97 34 91/44 (60) 100 04/02/19 14:30 101 33 87/43 (58) 100 04/02/19 14:15 97 32 90/44 (59) 100 04/02/19 14:00 101 36 88/46 (60) 100 04/02/19 14:00 36 Mechanical Ventilator 40 04/02/19 14:00 88/46 04/02/19 13:45 102 34 92/42 (59) 100 04/02/19 13:33 103 96/45 04/02/19 13:32 96/45 04/02/19 13:30 95/40 04/02/19 13:30 108 33 95/40 (58) 100 04/02/19 13:15 102 34 101/45 (63) 100 04/02/19 13:00 106 36 98/51 (67) 100 04/02/19 13:00 36 Mechanical Ventilator 40 10/20/19 13:00 98/51 04/02/19 12:53 104 38 40 04/02/19 12:45 113 38 106/48 (67) 100 04/02/19 12:40 39 Mechanical Ventilator 40 04/02/19 12:35 38 Mechanical Ventilator 40 04/02/19 12:30 111 36 100/52 (68) 100 04/02/19 12:30 39 Mechanical Ventilator 40 04/02/19 12:25 38 Mechanical Ventilator 40 04/02/19 12:20 38 Mechanical Ventilator 40 04/02/19 12:15 36 Mechanical Ventilator 40 04/02/19 12:15 113 36 115/50 (71) 100 04/02/19 12:10 36 Mechanical Ventilator 40 04/02/19 12:05 36 Mechanical Ventilator 40 04/02/19 12:00 Endotracheal Tube 04/02/19 12:00 114 04/02/19 12:00 98.3 114 37 120/54 (76) 100 04/02/19 12:00 38 Mechanical Ventilator 40 04/02/19 12:00 120/54 04/02/19 12:00 40 04/02/19 11:55 38 Mechanical Ventilator 40 04/02/19 11:50 38 Mechanical Ventilator 40 04/02/19 11:45 36 Mechanical Ventilator 40 04/02/19 11:45 104 37 100/47 (64) 100 04/02/19 11:30 110 34 113/75 (88) 100 04/02/19 11:30 34 Mechanical Ventilator 40 04/02/19 11:15 105 33 110/53 (72) 100 04/02/19 11:05 98 35 100 Mechanical Ventilator 40 98 38 40 04/02/19 11:00 94 31 91/57 (68) 100 04/02/19 11:00 34 Mechanical Ventilator 40 04/02/19 11:00 91/57 04/02/19 10:45 98 34 92/42 (59) 100 04/02/19 10:40 34 Mechanical Ventilator 40 04/02/19 10:35 35 Mechanical Ventilator 40 04/02/19 10:30 100 37 91/45 (60) 100 04/02/19 10:30 37 Mechanical Ventilator 40 04/02/19 10:25 36 Mechanical Ventilator 40 04/02/19 10:20 38 Mechanical Ventilator 40 04/02/19 10:15 110 38 120/102 (108) 96 04/02/19 10:15 36 Mechanical Ventilator 40 04/02/19 10:10 36 Mechanical Ventilator 40 04/02/19 10:06 102 36 106/36 (59) 100 04/02/19 10:05 38 Mechanical Ventilator 40 04/02/19 10:00 36 Mechanical Ventilator 40 04/02/19 10:00 93/53 04/02/19 10:00 95 37 93/53 (66) 99 04/02/19 09:58 38 Mechanical Ventilator 40 04/02/19 09:58 37 93/53 Mechanical Ventilator 40 04/02/19 09:45 97 37 98/53 (68) 99 04/02/19 09:30 96 36 99/51 (67) 100 04/02/19 09:15 100 36 99/52 (68) 99 04/02/19 09:00 142 34 97/43 (61) 99 04/02/19 09:00 97/43 04/02/19 09:00 34 97/43 Non-Rebreather 40 04/02/19 08:45 152 34 102/46 (64) 100 04/02/19 08:32 140 38 40 04/02/19 08:30 162 38 104/56 (72) 99 04/02/19 08:15 135 34 90/76 (81) 100 04/02/19 08:04 34 96/47 Mechanical Ventilator 40 04/02/19 08:03 36 96/47 Mechanical Ventilator 40 04/02/19 08:00 96/47 04/02/19 08:00 34 96/47 Mechanical Ventilator 40 04/02/19 08:00 96 04/02/19 08:00 40 04/02/19 08:00 Endotracheal Tube 04/02/19 08:00 98.0 98 36 96/47 (63) 100 04/02/19 07:48 106 34 111/42 (65) 100 04/02/19 07:45 104 35 89/56 (67) 100 04/02/19 07:30 106 34 105/47 (66) 100 04/02/19 07:15 118 30 101/49 (66) 100 04/02/19 07:04 105 34 100 Mechanical Ventilator 40 87 32 40 04/02/19 07:00 83/42 04/02/19 07:00 32 83/42 Endotracheal Tube 40 04/02/19 07:00 88 96/47 10/20/19 07:00 87 24 83/46 (58) 100 04/02/19 06:45 92 32 96/47 (63) 100 04/02/19 06:45 83/46 04/02/19 06:30 99 33 95/47 (63) 100 04/02/19 06:15 98 29 95/46 (62) 100 Sp02 EP Interpretation: reviewed, normal General Appearance: other - unresponsive Head: normocephalic Eyes: bilateral eye normal inspection ENT: other - ET Neck: other - flaccid Respiratory: normal breath sounds Cardiovascular #1: other - asystole, edema - anasarca Cardiovascular #2: 0 femoral (R) - pulses with CPR Genitourinary: other - O[place] Musculoskeletal: other - flaccid Neurologic: other - unresponsive Psychiatric: other - unresponsive Skin: mottled CPR/Code Blue CPR/Code Blue Narrative Code called 5:54 CPR performed under my supervision. Pulses with CPR. Epi had been given. Asystole. Epi repeated. Bicarb X2. Discussed with status. Pulses restored6:02. Accucheck 50. D50W given. ST. BP Medical Decision Making Diagnostic Impression: Primary Impression: Cardiopulmonary arrest Additional Impression: Severe sepsis ER Course Code with asystole. See procedure note. Pulses restored. Patient's requests DNR status. Futile care identified. Contact Dr. Chavarria regarding Code Status change 6:15. Labs Test 03/29/19 22:24 03/29/19 22:42 03/30/19 08:35 03/31/19 05:55 Urine Opiates Screen Negative (NEGATIVE) Urine Barbiturates Screen Negative (NEGATIVE) Phencyclidine (PCP) Screen Negative (NEGATIVE) Urine Amphetamines Screen Negative (NEGATIVE) Urine Benzodiazepines Screen Negative (NEGATIVE) Urine Cocaine Screen Negative (NEGATIVE) Urine Marijuana (THC) Screen Negative (NEGATIVE) Total Creatine Kinase 65 U/L (26-308) Creatine Kinase MB < 0.5 NG/ML (0.0-3.6) Creatine Kinase MB Relative Index 0.7 Troponin I 0.000 ng/mL (0.000-0.056) Thyroid Stimulating Hormone (TSH) 0.790 uiU/mL (0.358-3.740) Salicylates Level < 0.2 ug/mL (2.8-20) Acetaminophen Level < 2 MCG/ML (10-30) Serum Alcohol < 3 mg/dL Acetone Level Negative (NEGATIVE) Hemoglobin A1c 7.4 % (4.3-6.0) Random Vancomycin Level 9.9 ug/mL Test 03/31/19 22:30 04/01/19 04:31 04/02/19 04:38 04/02/19 09:45 Urine Color Brown Urine Appearance Slightly cloudy Urine pH 5 (4.5-8.0) Urine Specific [place] 1.020 (1.005-1.035) Urine Protein 3+ (NEGATIVE) Urine Glucose (UA) 2+ (NEGATIVE) Urine Ketones 1+ (NEGATIVE) Urine Blood 4+ (NEGATIVE) Urine Nitrite Negative (NEGATIVE) Urine Bilirubin Negative (NEGATIVE) Urine Urobilinogen 1 MG/DL (0.0-1.0) Urine Leukocyte Esterase 1+ (NEGATIVE) Urine RBC 5-10 /HPF (0 - 0) Urine WBC 2-4 /HPF (0 - 0) Urine Squamous Epithelial Cells Occasional /LPF Urine Amorphous Sediment Few /LPF (NONE) Urine Bacteria Many /HPF (NONE) Red Blood Cell Morphology Normal Polychromasia 1+ Erythrocyte Sedimentation Rate 105 MM/HR (0-20) Prothrombin Time 30.6 SEC (9.30-11.50) Prothromb Time International Ratio 3.1 (0.9-1.1) Activated Partial Thromboplast Time 34 SEC (23-33) C-Reactive Protein, Quantitative 30.0 mg/dL (0.00-0.90) Triglycerides Level 508 MG/DL (30-150) Ammonia < 10 umol/L (11-32) Test 04/03/19 04:20 04/03/19 06:04 White Blood Count 10.3 K/UL (4.8-10.8) Red Blood Count 3.36 M/UL (4.70-6.10) Hemoglobin 10.5 G/DL (14.2-18.0) Hematocrit 31.5 % (42.0-52.0) Mean Corpuscular Volume 94 FL (80-99) Mean Corpuscular Hemoglobin 31.2 PG (27.0-31.0) Mean Corpuscular Hemoglobin Concent 33.4 G/DL (32.0-36.0) Red Cell Distribution Width 14.4 % (11.6-14.8) Platelet Count 52 K/UL (150-450) Mean Platelet Volume 7.7 FL (6.5-10.1) Neutrophils (%) (Auto) % (45.0-75.0) Lymphocytes (%) (Auto) % (20.0-45.0) Monocytes (%) (Auto) % (1.0-10.0) Eosinophils (%) (Auto) % (0.0-3.0) Basophils (%) (Auto) % (0.0-2.0) Differential Total Cells Counted 100 Neutrophils % (Manual) 56 % (45-75) Lymphocytes % (Manual) 27 % (20-45) Monocytes % (Manual) 12 % (1-10) Eosinophils % (Manual) 0 % (0-3) Basophils % (Manual) 0 % (0-2) Band Neutrophils 5 % (0-8) Nucleated Red Blood Cells 15 /100 WBC Platelet Estimate Decreased Platelet Morphology Normal Anisocytosis 1+ Sodium Level 143 MMOL/L (136-145) Potassium Level 6.4 MMOL/L (3.5-5.1) Chloride Level 108 MMOL/L (98-107) Carbon Dioxide Level 7 MMOL/L (21-32) Anion Gap 28 mmol/L (5-15) Blood Urea Nitrogen 56 mg/dL (7-18) Creatinine 5.0 MG/DL (0.55-1.30) Estimat Glomerular Filtration Rate 14.2 mL/min (>60) Glucose Level 83 MG/DL (74-106) Lactic Acid Level 18.80 mmol/L (0.4-2.0) Calcium Level 7.1 MG/DL (8.5-10.1) Total Bilirubin 3.7 MG/DL (0.2-1.0) Direct Bilirubin 1.6 MG/DL (0.0-0.3) Aspartate Amino Transf (AST/SGOT) 94851 U/L (15-37) Alanine Aminotransferase (ALT/SGPT) 3637 U/L (12-78) Alkaline Phosphatase 945 U/L (46-116) Total Protein 5.0 G/DL (6.4-8.2) Albumin 1.5 G/DL (3.4-5.0) Globulin 3.5 g/dL Albumin/Globulin Ratio 0.4 (1.0-2.7) Amylase Level 111 U/L (25-115) Lipase 992 U/L (73-393) Arterial Blood pH 6.853 (7.350-7.450) Arterial Blood Partial Pressure CO2 55.8 mmHg (35.0-45.0) Arterial Blood Partial Pressure O2 < 45.3 mmHg (75.0-100.0) Arterial Blood HCO3 9.6 mmol/L (22.0-26.0) Arterial Blood Oxygen Saturation 48.7 % (95-100) Arterial Blood Base Excess -23.2 (-2-2) [place] Test Rhythm Strip Diag. Results EP Interpretation: yes Rhythm: no PVC's, no ectopy, other - ST at end of code Last Vital Signs Date Time Temp Pulse Resp B/P (MAP) Pulse Ox O2 Delivery O2 Flow Rate FiO2 04/03/19 06:09 148 57/40 04/03/19 05:15 36 04/03/19 05:00 100 04/03/19 04:03 85 04/03/19 04:00 Endotracheal Tube 04/03/19 04:00 98.0 04/02/19 21:21 15.0 Status: improved Disposition: ADMITTED INPATIENT Condition: Critical Referrals: NOT CHOSEN IPA/,REFERRING (PCP) Jah Wang MD Apr 03, 2019 06:12
[2019-04-03] MEDS ORDERED: Sodium Bicarbonate 150 ML in D5W 1000ml 1,000 ML IV SCH (06:30)
--- NOTE | 2019-04-03 06:30 | NUR ---
NURSE NOTES: Called ER MD to pronounced .Patient asystole at the monitor.
[2019-04-03 06:33] LABS: ALBUMIN 1.5 G/DL (3.4-5.0); ALBUMIN/GLOBULIN RATIO 0.4 (1.0-2.7); ALKALINE PHOSPHATASE 945 U/L (46-116); ANION GAP 28 mmol/L (5-15); BILIRUBIN,TOTAL 3.7 MG/DL (0.2-1.0); BLOOD UREA NITROGEN 56 mg/dL (7-18); CALCIUM 7.1 MG/DL (8.5-10.1); CARBON DIOXIDE 7 MMOL/L (21-32); CHLORIDE 108 MMOL/L (98-107); POTASSIUM 6.4 MMOL/L (3.5-5.1); SODIUM 143 MMOL/L (136-145)
--- NOTE | 2019-04-03 06:35 | NUR ---
NURSE NOTES: Dr. Mckenzie pronounced the time of .
[2019-04-03 06:36] LABS: BILIRUBIN,DIRECT 1.6 MG/DL (0.0-0.3)
[2019-04-03 06:38] LABS: ALANINE AMINOTRANSFERASE 3637 U/L (12-78)
--- NOTE | 2019-04-03 06:46 | Emergency Room Report ---
History of Present Illness General Chief Complaint: Altered Level of Consciousness Source: Patient, Family Member, Significant Other, Medical Record, PMD Present Illness Allergies: Coded Allergies: PENICILLINS (Verified Allergy, Unknown, 03/29/19) Nursing Documentation-[facility] Hx Hypertension: Yes Hx Diabetes: Yes Hx Cancer: No Hx Gastrointestinal Problems: No Hx Neurological Problems: No Physical Exam Vital Signs Date Time Temp Pulse Resp B/P (MAP) Pulse Ox O2 Delivery O2 Flow Rate FiO2 03/30/19 08:00 101.7 99 20 93/57 (69) 95 03/30/19 09:00 Room Air 03/31/19 04:05 2.0 28 Medical Decision Making Diagnostic Impression: Primary Impression: Cardiopulmonary arrest Additional Impression: Severe sepsis ER Course I was called to the ICU to pronounce this patient. Patient was on ventilator for respiratory distress. patient recently CODED overnight. Shortly after that the family made the decision to make patient DNR. Just a few minutes ago patient slowly lost his pulse. at 6:35 AM. Family at bedside. Last Vital Signs Date Time Temp Pulse Resp B/P (MAP) Pulse Ox O2 Delivery O2 Flow Rate FiO2 04/03/19 06:09 148 57/40 04/03/19 05:15 36 04/03/19 05:00 100 04/03/19 04:03 85 04/03/19 04:00 Endotracheal Tube 04/03/19 04:00 98.0 04/02/19 21:21 15.0 Status: worsened Disposition: Condition: Referrals: NOT CHOSEN IPA/,REFERRING (PCP) Kofi Diaz MD Apr 03, 2019 06:46
[2019-04-03 06:48] LABS: ASPARTATE AMINO TRANSFERASE 16907 U/L (15-37)
--- NOTE | 2019-04-03 11:30 | NUR ---
NURSE NOTES: Per Simran Martinez, remains will be cremated by [employer]. Called [email or web address] and spoke with Ally answering service unable to give physical address of the company and will have some one call me back from [employer]. Received call back from Prabha Link as stated pt will be cremate at [facility] [id number] [place] [id number], phone [phone].As stated by Prabha Link, she will fax some paper work and get in touch with the [employer] to confirm the request . 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
--- NOTE | 2019-04-03 12:22 | NUR ---
NURSE NOTES: Remains taken [place] [facility] [place]
--- NOTE | 2019-04-03 12:33 | Diagnostic Imaging Report ---
Indication: Post endotracheal tube repositioning Technique: One view of the chest Comparison: 04/02/2019 Findings: Stable satisfactory positioning of endotracheal tube. Nasogastric tube projects beyond the edge of the image. Bilateral diffuse airspace disease is unchanged. Impression: Unchanged, over one day, findings as above.
--- NOTE | 2019-04-04 08:26 | Discharge Summary ---
Discharge Summary Discharge Summary _ SUMMARY DATE OF ADMISSION: 03/30/2019 DATE OF EXPIRATION : 04/03/2019 REASON FOR ADMISSION: 63 years old male with past medical history of hypertension, diabetes mellitus, hyperlipidemia, hepatitis c, presented for evaluation DUE TO altered mental status. Apparently patient lives at home with his who called paramedics, after patient became progressively more altered throughout the day. Per patient's , patient had a fever at home 103. Patient apparently had a history of liver cancer with the last episode of chemotherapy about 1 year ago. Patient was also treated for hepatitis C. Patient arrived afebrile , but shortly afterwards developed fever - 102.6. Laboratory work-up revealed no leukocytosis , hemoglobin 12.4, hematocrit 36.2. Platelet count 83. Sodium 132. BUN 54, creatinine 1.9. Glucose 222. Lactic acid 1.4. AST 87 , ALT 69 , alkaline phosphatase 198. Troponin negative. CK 65. EKG revealed sinus rhythm, no acute ischemic changes. Albumin 2.5. Serum alcohol , salicylates and Tylenol level were all negative. Urine toxicology screen was negative. Ammonia 68. CT of the head revealed no acute intracranial pathology. Chest x-ray demonstrated no acute cardiopulmonary pathology. Urinalysis revealed +2 protein , no evidence of urinary tract infection. Initial ABG on room air was stable. Patient received fluid resuscitation , pancultured , started on empiric antibiotic and admitted for further management. CONSULTANTS: ID specialist Dr. Weathers sterile technician Dr. B[facility] Dr. Mckenna [facility] COURSE: Patient continued on IV hydration and empiric antibiotic. Director Of Sports Medicine closely followed. The next day patient became short of breath and moved to the ICU. Patient became hypoxemic and placed on supplemental oxygen. ABG revealed severe acidosis . Chest x-ray showed worsening of aeration with development of bilateral interstitial and predominantly right-sided airspace opacity, probably related to pulmonary edema. Patient subsequently was orally intubated. Ventilator support and tracheostomy care provided. Pulmonary toilet with bronchodilator provided. Blood culture revealed Enterobacter . Urine culture were negative. Sputum culture pending at the time of this dictation. Antibiotic regimen optimized based on culture. ID specialist seen and evaluated patient and further optimized antibiotic regimen. Blood pressure was closely monitored. All antihypertensive medications were on hold. On 04/01 patient became severely hypotensive and required pressors. Central line was placed, and patient started on Levophed . Later phenylephrine was added. Hemodynamic status was closely monitored Pressors titrated to keep mean arterial blood pressure above 65. Patient was followed-up with ABG and continued to be acidotic. Abdominal ultrasound revealed no evidence of dilated bile ducts. Splenomegaly. Possible hepatic surface nodularity , may be indicative of cirrhotic changes. Status post cholecystectomy. Venous duplex bilateral lower extremity revealed no evidence of acute DVT. Patient was follow-up with a chest x-ray. Renal parameters and electrolytes were closely monitored. Electrolytes corrected as needed. Hyperkalemia was treated. Renal parameters worsened : creatinine was rising up. Per sterile technician, patient has multifactorial acute tubular necrosis due to hypotension , sepsis and volume depletion. Lactic acid trended from initial 1.4 to 7.6 the next day, and continued to rise ; on the day of expiration -18.8. Patient was provided with IVF with bicarbonate and increased rate . Blood sugar was managed with sliding scale of insulin. Hemoglobin A1c 7.4. Patient also showed evidence of elevated LFT : AST from initial 87 was rising , and on the day of expiration -78175 and ALT from initial 69 up to 3637. Total bilirubin 3.7, direct bilirubin 1.6. Lipase 992 , amylase 111. Ammonia trended down. GI prophylaxis provided. GI specialist consult was requested. 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 ACLS protocol initiated. Patient was able to be revived. Patient started on vasopressin in addition to Levophed and Phenylephrine. Family at that time made decision to make patient DNR/DNI status. Patient shortly afterwards showed asystole on monitor and was pronounced at 6: 35 AM 04/03 . Cause of : cardiopulmonary arrest. FINAL DIAGNOSES: Enterobacter sepsis with septic shock Probably pneumonia Acute kidney injury / multifactorial acute tubular necrosis ( due to hypotension sepsis and volume depletion) Acute respiratory failure requiring intubation s/p cardiopulmonary arrest Metabolic acidosis ( due to hypoperfusion and elevated lactic acidosis) Altered level of consciousness likely due to toxic metabolic encephalopathy ( due to sepsis and renal failure) History of liver cancer History of hepatitis C Transaminitis, probably shock liver Diabetes mellitus Possibly cirrhosis I have been assigned to dictate discharge summary for this account. I was not involved in the patient's management. Jackie Montanez NP Apr 04, 2019 08:26
--- NOTE | 2019-04-04 08:52 | Cardiology Report ---
APPROVED REPORT EXAM: Two-dimensional and M-mode echocardiogram with Doppler and color Doppler. INDICATION OTHER M-Mode DIMENSIONS IVSd1.0 (0.7-1.1cm)Left Atrium (MM)3.8 (1.6-4.0cm) LVDd4.3 (3.5-5.6cm)Aortic Root3.5 (2.0-3.7cm) PWd1.7 (0.7-1.1cm)Aortic Cusp Exc.2.3 (1.5-2.0cm) IVSs1.4 cm LVDs3.0 (2.5-4.0cm) PWs1.9 cm Technically difficult study due to poor parasternal acoustical windows,pt was on ventilator and combative. Normal left ventricular chamber size. Left ventricular ejection fraction estimated to be 30- 35 %. Study quality precludes accurate assessment of regional wall motion.Septum appears akinetic. No evidence of pericardial effusion. All other cardiac chamber sizes are within normal limits. Focal aortic valve sclerosis with adequate cusp excursion. Thickened mitral valve leaflets with normal excursion. Mitral annulus and aortic root calcification. Pulmonic valve not well visualized. Normal tricuspid valve structure. IVC dilated at 2.0 cm with slight physiologic collapse suggestive of increased RA pressure. A color flow and spectral Doppler study was performed and revealed: Mitral diastolic velocities suggest reduced left ventricular relaxation c/w mild LV diastolic dysfunction (Grade I ). Moderate tricuspid regurgitation. Tricuspid systolic velocities suggests peak right ventricular systolic pressure of 42 mmHg consistent with mild pulmonary hypertension. Pulmonic regurgitation present.
== END 2019-04-03 06:30 | disposition expired | DRG 870 ==
LOC: EDBD 22:21 → EMR 22:35 → 4E 03-30 01:38 → EDBEDREQ 03-30 02:12 → 2W 03-31 05:40 → ICU 03-31 19:09
PROC: 5A1955Z Respiratory Ventilation, Greater than 96 Consecutive Hours (ICD-10-PCS; principal; 2019-04-01)
PROC: 0BH17EZ Insertion of Endotracheal Airway into Trachea, Via Natural or Artificial Opening (ICD-10-PCS; principal; 2019-04-01)
PROC: 06HN33Z Insertion of Infusion Device into Left Femoral Vein, Percutaneous Approach (ICD-10-PCS; 2019-04-01)
PROC: 5A12012 Performance of Cardiac Output, Single, Manual (ICD-10-PCS; 2019-04-03)
DX: A41.50 Gram-negative sepsis, unspecified (principal); J18.9 Pneumonia, unspecified organism; N17.0 Acute kidney failure with tubular necrosis; R65.21 Severe sepsis with septic shock; J96.00 Acute respiratory failure, unspecified whether with hypoxia or hypercapnia; G92 Toxic encephalopathy; K72.00 Acute and subacute hepatic failure without coma; E87.2 Acidosis; Z88.0 Allergy status to penicillin; E11.65 Type 2 diabetes mellitus with hyperglycemia; E78.5 Hyperlipidemia, unspecified; Z66 Do not resuscitate; Z85.05 Personal history of malignant neoplasm of liver; Z86.19 Personal history of other infectious and parasitic diseases; K74.60 Unspecified cirrhosis of liver; Z87.891 Personal history of nicotine dependence; F11.90 Opioid use, unspecified, uncomplicated; M19.90 Unspecified osteoarthritis, unspecified site; R80.9 Proteinuria, unspecified
CPT/HCPCS: 36415; 36600; 70450; 71045; 74018; 76700; 76705; 80048; 80053; 80202; 80307; 81001; 81003; 82009; 82140; 82150; 82248; 82550; 82553; 82803; 82962; 83036; 83605; 83690; 84132; 84443; 84478; 84484; 85007; 85025; 85610; 85651; 85730; 86140; 87040; 87070; 87086; 87181; 87205; 92950; 93005; 93306; 93970; 94002; 94003; 94640; 96360; 96361; 99285; G0480; J1815; J2370; J7030; J7620